=== PATIENT | female | born 1950 ===

== ENCOUNTER → 2023-10-23 15:37 | Outpatient (CLI) | payer MEDICARE, MEDICAID, SELFPAY ==
--- NOTE | 2023-10-23 | DI.RAD.S_ITS ---
PROCEDURE: XR CHEST 2V INDICATIONS: Pneumonia, unspecified organism TECHNIQUE: 2 views of the chest were acquired. COMPARISON: None. FINDINGS: Surgical changes and devices: None. Lungs and pleura: Lungs are clear. No pleural effusions or pneumothorax. Mediastinum: Mediastinal contours are normal. Heart size is normal. Bones and chest wall: No suspicious bony abnormalities. Soft tissues appear unremarkable. IMPRESSION: No acute pulmonary process. Dictated by: Michelle Gonzalez M.D. on 10/23/2023 at 19:56 Approved by: Michelle Gonzalez M.D. on 10/23/2023 at 19:56
== END ==
PROVIDERS: PCP Internal Medicine; Referring Provider Internal Medicine; Visit Provider Internal Medicine
DX: J18.9 Pneumonia, unspecified organism (principal)
CPT/HCPCS: 71046

== ENCOUNTER → 2023-12-02 13:08 | Outpatient (ROUT) | payer MEDICARE, MEDICAID, SELFPAY | PROVIDERS: PCP Internal Medicine; Visit Provider Internal Medicine | DX: Z13.9 Encounter for screening, unspecified (principal) | CPT/HCPCS: 87077; 87086; 87186 ==

== ENCOUNTER → 2023-12-13 06:07 | Outpatient (ROUT) | payer MEDICARE, MEDICAID, SELFPAY ==
[2023-12-13 08:03] LABS: HEMOLYSIS < 15 (0-50)
[2023-12-13 08:04] LABS: Alanine Aminotransferase 10 IU/L (<35); Albumin Globulin Ratio 0.8 (1.0-2.8); Alkaline Phosphatase 97 U/L (38-126); Aspartate Aminotransferase 13 IU/L (14-36); BUN Creatinine Ratio 15.2 (6-22); Bilirubin Total 0.5 mg/dL (0.2-1.3); Blood Urea Nitrogen 17 mg/dL (7-17); Calcium 8.2 mg/dL (8.4-10.2); Carbon Dioxide 30 mmol/L (22-32); Chloride 105 mmol/L (98-107); Estimated Glomerular Filt Rate 53 mL/min (>60); Globulin 3.6 g/dL (1.7-4.1); Glucose 196 mg/dL (80-110); Sodium 136 mmol/L (137-145); Total Protein 6.6 g/dL (6.3-8.2)
[2023-12-13 10:26] LABS: Potassium 4.2 mmol/L (3.4-5.1)
== END ==
PROVIDERS: PCP Internal Medicine; Visit Provider Licensed Practical Nurse
DX: N39.0 Urinary tract infection, site not specified (principal)
CPT/HCPCS: 36415; 80053

== ENCOUNTER 2024-01-22 09:54 | Emergency (ER) | payer MEDICARE, MEDICAID, SELFPAY ==
[2024-01-22] VITALS (8 sets, daily range): BP systolic 111–131; BP diastolic 56–66; PULSE 64–80; RESP 14–18; TEMP 37.2; O2SAT 94–97; BMI 35.4
--- NOTE | 2024-01-22 10:56 | ED_ITS ---
HPI - General Adult General Chief complaint: Urogenital-Female Stated complaint: poss uti, nausea Time Seen by Provider: 01/22/24 10:17 History of Present Illness HPI narrative: 73-year-old woman who lives at [facility] with a prior stroke with persistent left-sided weakness, endometrial cancer, presents complaining of 4 days of dysuria, today noted some mild nausea and anxiety. No flank pain, mild suprapubic pain, no diarrhea, fevers, confusion, weakness Related Data Previous Rx's Medication Instructions Recorded amoxicillin 875 mg-potassium 1 tab PO BID #28 tabs 01/22/24 clavulanate 125 mg tablet Allergies Allergy/AdvReac Type Severity Reaction Status Date / Time codeine Allergy Itching Verified 04/17/20 10:31 Review of Systems Review of Systems Narrative: Pertinent positive and negative findings as per HPI Patient History Medical History (Updated 01/22/24 @ 11:39 by Mackenzie Zheng MD) Aftercare following left shoulder joint replacement surgery Endometrial cancer Surgical History (Updated 04/17/20 @ 11:33 by Mary Hernandez MD) H/O heart artery stent History of robot-assisted laparoscopic hysterectomy Social History Smoking Status: Former smoker Smoking Status: Former smoker Substance Use Type: does not use Exam Initial Vital Signs Initial Vital Signs: Vital Signs Temperature 98.9 F 01/22/24 09:59 Pulse Rate 78 01/22/24 09:59 Respiratory Rate 18 01/22/24 09:59 Blood Pressure 111/56 L 01/22/24 09:59 Pulse Oximetry 96 01/22/24 09:59 Oxygen Delivery Method Room Air 01/22/24 09:59 General: Chronically ill-appearing but in no acute distress. Able to give a complete and coherent history. Well-nourished well-developed HEENT: Moist mucous membranes, normal sclera with reactive pupils, Respiratory: Lungs are clear to auscultation, no wheezing no rales no rhonchi. Full and symmetrical air movement Cardiac: Regular rate and rhythm no murmurs no bruits Abdomen: Soft, mild suprapubic tenderness without rebound or guarding. No flank pain Skin: Warm and dry, no rashes Neurologic: Left arm paralysis, left lower extremity weakness, chronic Extremities: No trauma, no significant edema Psych: Cooperative, appropriate insight and affect Course Orders Ordered: ED Orders 01/22/24 10:45 Urinalysis and Microscopic Stat Urine Culture Stat 01/22/24 10:55 Complete Blood Count AUTO DIFF Stat Comprehensive Metabolic Panel Stat Lipase Stat Sodium Chloride (Sodium Chloride 0.9% Flush) 10 ml IV BID VERA Sodium Chloride (Sodium Chloride 0.9% Flush) 10 ml IV PRN PRN PRN Reason: Flush Vital Signs Vital signs: Vital Signs - 8 hr 01/22/24 09:59 01/22/24 10:18 01/22/24 10:19 Temperature 98.9 F Pulse Rate 78 80 Respiratory Rate 18 Blood Pressure 111/56 L 131/63 Pulse Oximetry 96 97 Oxygen Delivery Method Room Air 01/22/24 10:19 01/22/24 10:30 01/22/24 11:00 Temperature Pulse Rate 79 75 68 Respiratory Rate Blood Pressure Pulse Oximetry 96 94 96 Oxygen Delivery Method Medical Decision Making Lab Data 01/22/24 10:55 01/22/24 10:55 Labs: Lab Results 01/22/24 01/22/24 Range/Units 10:45 10:55 WBC 5.4 (4.5-11.0) X10^3/uL RBC 4.51 (4.0-5.2) X10^6/uL Hgb 12.0 (12.0-16.0) g/dL Hct 36.7 (36-46) % MCV 81.4 (80-100) fL MCH 26.5 (26-34) PG MCHC 32.6 (30-36) % RDW 18.5 H (11.6-14.8) % Plt Count 330 (150-400) X10^3/uL Neut % (Auto) 75.2 H (50-75) % Lymph % (Auto) 15.7 L (25-40) % [place] % (Auto) 5.5 (3-14) % Eos % (Auto) 3.0 (2-4) % Baso % (Auto) 0.6 (0-2) % Neut # (Auto) 4000 (6388-2313) /uL Lymph # (Auto) 800 L (6764-6564) /uL [place] # (Auto) 300 (0-900) /uL Eos # (Auto) 200 (0-450) /uL Baso # (Auto) 0 (0-100) /uL Sodium 135 L (137-145) mmol/L Potassium 4.1 (3.4-5.1) mmol/L Chloride 102 (98-107) mmol/L Carbon Dioxide 32 (22-32) mmol/L BUN 15 (7-17) mg/dL Creatinine 0.94 (0.52-1.04) mg/dL Estimated GFR > 60 (>60) mL/min BUN/Creatinine Ratio 16.0 (6-22) Glucose 128 H (80-110) mg/dL Calcium 8.6 (8.4-10.2) mg/dL Total Bilirubin 0.5 (0.2-1.3) mg/dL AST 14 (14-36) IU/L ALT 10 (<35) IU/L Alkaline Phosphatase 119 (38-126) U/L Total Protein 7.1 (6.3-8.2) g/dL Albumin 3.4 L (3.5-5.0) g/dL Globulin 3.7 (1.7-4.1) g/dL Albumin/Globulin Ratio 0.9 L (1.0-2.8) Lipase 33 (23-300) U/L Urine Color Straw Urine Appearance Cloudy Urine pH 6.0 (4.5-8.0) Ur Specific [place] 1.015 (1.000-1.035) Urine Protein 1+ H (Negative) Urine Glucose (UA) Negative (Negative) g/dL Urine Ketones Negative (NEGATIVE) Urine Occult Blood 3+ H (Negative) Urine Nitrate Positive H (Negative) Urine Bilirubin Negative (NEGATIVE) Urine Urobilinogen Normal (0.2) E.U./dL Ur Leukocyte Esterase 3+ H (NEGATIVE) Urine RBC >100/hpf H (0-5/HPF) Urine WBC >100/hpf H (0-5/HPF) Ur Squamous Epith Cells 1-5 /hpf (0-5/HPF) Urine Bacteria Many (>30) H (None) Ur Culture Indicated? Specimen cultured Vol Urine Centrifuged 10ml (spun) MDM Narrative Medical decision making narrative: CC: Dysuria Complicating co-morbidities: Assisted living, left-sided weakness due to prior stroke Data collected from: patient Social determinants of health that may influence the patients condition: Patient has frequent urinary tract infections, knows that she will need a straight cath for examination finds that very painful and avoids telling anybody that she is having urinary symptoms. She has had prior episodes of urinary sepsis and is aware of consequences of holding off on beginning treatment for bladder infection Differential considered: UTI, sepsis, abdominal infection, constipation Exam documented above, pertinent findings include: The patient appears to be at baseline. Exam is benign. Minor suprapubic tenderness only Lab Test results independently reviewed as above. Pertinent findings: 12/06/23 Urine cuture 1. Escherichia coli M.I.C. RX --------- --- * Amoxicillin/Clavulanate 4 S * Ampicillin >=32 R * Ampicillin/Sulbactam 4 S * Cefazolin >=64 R * Cefepime R * Ceftazidime R * Ceftriaxone 32 R * Ciprofloxacin >=4 R * Ertapenem <=0.5 S * Gentamicin <=1 S * Imipenem <=0.25 S * Levofloxacin >=8 R * Nitrofurantoin <=16 S * Tobramycin <=1 S * Trimethoprim/Sulfamethoxazole >=320 R * Piperacillin/Tazobactam <=4 S Treatments: Based on E coli urine culture from November of this year, we will start her on Augmentin and ask her to complete a 10 day course. Discussion: 73-year-old woman with a history of stroke, recurrent urinary tract infection without evidence of sepsis or other systemic concerns. Based on your previous culture a month ago we will treat with Augmentin, 1st dose given in the emergency department. At this time without evidence of sepsis or other additional findings she does not need further workup, imaging or hospitalization Discharge Plan Departure Patient Disposition: Home Clinical Impression: Urinary tract infection Qualifiers: Urinary tract infection type: acute cystitis Hematuria presence: with hematuria Qualified Code(s): N30.01 - Acute cystitis with hematuria Instructions: DI for Urinary Tract Infection (UTI) Activity Restrictions/Additional Instructions: Thank you for coming in today I know that it is uncomfortable to have a straight catheterization to figure out if you do have a bladder infection however finding them and treating them early can prevent complications like sepsis, as you have already experienced Fortunately, you do not have any evidence of sepsis today It does look like you have a bladder infection and based on urine from mid November of this year I am going to place you on 14 days of Augmentin. If you find that you are having fevers, the pain is not improving over the next 48 hours, you have new symptoms or increasing weakness you need to return to the emergency department Prescriptions: New amoxicillin-pot clavulanate 875-125 mg tablet 1 tab PO BID Qty: 28 0RF Referrals: Sid Townsend MD [Primary Care Provider] - Stand Alone Forms: Patient Portal/API
[2024-01-22 11:00] LABS: Appearance Urine UA Cloudy; Color Urine UA Straw
[2024-01-22 11:01] LABS: Glucose Urine UA NEGATIVE (Negative); Specific Gravity Urine UA 1.015 (1.000-1.035)
[2024-01-22 11:02] LABS: Bilirubin Urine UA Negative (NEGATIVE); Ketones Urine UA NEGATIVE (NEGATIVE); Nitrite Urine UA POSITIVE (Negative); Occult Blood Urine UA 3+ (Negative)
[2024-01-22 11:03] LABS: Leukocyte Esterase Urine UA 3+ (NEGATIVE); Protein Urine UA 1+ (Negative); RBC Urine >100/HPF (0-5/HPF); Urine Volume 10mL (spun); Urobilinogen Urine UA Normal E.U./dL (0.2); WBC Urine >100/HPF (0-5/HPF)
[2024-01-22 11:04] LABS: Add Manual Diff / Slide Review NO; Basophils Absolute Auto 0 /uL (0-100); Basophils Percent Auto 0.6 % (0-2); Eosinophils Absolute Auto 200 /uL (0-450); Hematocrit 36.7 % (36-46); Lymphocytes Absolute Auto 800 /uL (1100-4500); Lymphocytes Percent Auto 15.7 % (25-40); Mean Corpuscular HGB Conc 32.6 % (30-36); Mean Corpuscular Hemoglobin 26.5 PG (26-34); Mean Corpuscular Volume 81.4 fL (80-100); Monocytes Absolute Auto 300 /uL (0-900); Monocytes Percent Auto 5.5 % (3-14); Neutrophils Absolute Auto 4000 /uL (1500-7000); Neutrophils Percent Auto 75.2 % (50-75); Platelet Count 330 X10^3/uL (150-400); Red Blood Cell Count 4.51 X10^6/uL (4.0-5.2); Red Cell Distribution Width 18.5 % (11.6-14.8); White Blood Cell Count 5.4 X10^3/uL (4.5-11.0)
[2024-01-22 11:04] LABS: Bacteria Urine Many (>30); Culture Indicated Urine Specimen Cultured; Squamous Epithelial Cell Urine 1-5 /HPF (0-5/HPF)
[2024-01-22 11:17] LABS: Alanine Aminotransferase 10 IU/L (<35); Albumin 3.4 g/dL (3.5-5.0); Albumin Globulin Ratio 0.9 (1.0-2.8); Alkaline Phosphatase 119 U/L (38-126); Aspartate Aminotransferase 14 IU/L (14-36); Bilirubin Total 0.5 mg/dL (0.2-1.3); Blood Urea Nitrogen 15 mg/dL (7-17); Calcium 8.6 mg/dL (8.4-10.2); Carbon Dioxide 32 mmol/L (22-32); Chloride 102 mmol/L (98-107); Estimated Glomerular Filt Rate > 60 mL/min (>60); Globulin 3.7 g/dL (1.7-4.1); Glucose 128 mg/dL (80-110); HEMOLYSIS < 15 (0-50); Lipase 33 U/L (23-300); Potassium 4.1 mmol/L (3.4-5.1); Sodium 135 mmol/L (137-145); Total Protein 7.1 g/dL (6.3-8.2)
[2024-01-22] MEDS: AMOXICILLIN/CLAV 875/125 MG 1 TAB PO (11:50)
[2024-01-22] MEDS: SODIUM CHLORIDE 0.9% FLUSH 10 ML IV (11:50)
== END 2024-01-22 12:20 | disposition home or self-care (01) ==
PROVIDERS: Emergency Provider Emergency Medicine; PCP Internal Medicine
DX: N30.01 Acute cystitis with hematuria (principal)
CPT/HCPCS: 36415; 51701; 80053; 81001; 83690; 85025; 87077; 87086; 87186; 99284

== ENCOUNTER → 2024-04-09 07:37 | Outpatient (CLI) | payer MEDICARE, MEDICAID, SELFPAY ==
--- NOTE | 2024-04-09 | DI.CT.S_ITS ---
PROCEDURE: CT CHEST ABD PEL W CON INDICATIONS: Malignant neoplasm of uterus, part unspecified TECHNIQUE: After the administration of intravenous contrast, 5 mm thick sections acquired from the lung apices to the symphysis. 5 mm coronal and sagittal reformats were performed, with additional 7 mm MIP reformats through the lungs. For radiation dose reduction, the following was used: automated exposure control, adjustment of mA and/or kV according to patient size. COMPARISON: Outside Facility, RG, CT CHEST/ABD/PEL W/CONTRAST, 07/14/2023, 12:20. Outside Facility, RG, CT CHEST/ABD/PEL W/CONTRAST, 08/29/2022, 18:24. FINDINGS: Image quality: Excellent. CHEST: Lower Neck: No enlarged lymph nodes. Thyroid: No thyroid nodules which require sonographic follow up, per consensus guidelines. Axillae: Stable size borderline left axillary lymph node enlargement. Chest Wall: Unremarkable. Lungs and Pleura: Bilateral lower lung bronchial wall thickening and chronic posteromedial subpleural scarring/atelectasis. Overall low lung volumes. Bibasilar interstitial thickening. No focal consolidations, mass, or pleural effusion. Heart: Heart size is normal. No pericardial effusion. Thoracic Vessels: The aorta and pulmonary arteries demonstrate normal size. Mediastinum and [place]: No enlarged lymph nodes. Esophagus: No wall thickening. No hiatal hernia. ABDOMEN: Liver: Moderate hepatic steatosis. No visible lesions. Gallbladder: No wall thickening or calcified stones. Biliary ducts: No biliary dilation. Pancreas: No ductal dilation. Spleen: Size is within normal limits. Adrenal Glands: No adrenal nodules. Kidneys and Ureters: Normal right renal enhancement. Punctate, nonobstructing right upper pole intrarenal calcification. No hydronephrosis or hydroureter. The left kidney demonstrates diffuse cortical thickening, chronic, prominent hydronephrosis, fat stranding throughout the renal sinus fat, and urothelial thickening with enhancement. There is enhancing, thick-walled hydroureter to the level of the distal ureter. No visible calcifications. No significant change. Stomach and Bowel: Stomach and small bowel loops are normal caliber. Normal appendix. Increased quantity of solid colonic stool. Peritoneum: No abnormal intraperitoneal fluid. No free air. Ventral Wall: No significant ventral hernia. Abdominal Nodes: Left retroperitoneal lymph node enlargement, most prominent at the level of the left renal vein. Node measures 1.0 cm. 0.8 cm lymph node is immediately dorsal to this. No enlarged lymph nodes more caudally. No mesenteric adenopathy. Vessels: The abdominal aorta, IVC, and portal vein are of normal caliber. PELVIS: Pelvic Organs: Prior hysterectomy. No suspicious adnexal masses. The Bladder: Decompressed urinary bladder with thickening subserosal irregularity/inflammation and mucosal hyperemia. No stones no visible intraluminal mass. Pelvic Nodes: No enlarged lymph nodes. Miscellaneous: Moderate presacral fat stranding, probably treatment change without significant progression. No new pelvic fluid collections. Bones: No aggressive osseous abnormality. IMPRESSION: No suspicious lung nodule or adenopathy in the chest. There enlarged left retroperitoneal lymph nodes, slightly increased compared to prior. Stable appearance of chronic, severe left hydronephrosis and diffuse urothelial thickening with enhancement. Additionally, chronic urinary bladder wall thickening inflammation. No new adenopathy in the pelvis. Moderate hepatic steatosis. No visible liver lesion. Prior hysterectomy. Dictated by: Tiffany Cannon M.D. on 04/11/2024 at 15:35 Approved by: Tiffany Cannon M.D. on 04/11/2024 at 15:52
[2024-04-09 08:06] LABS: Estimated Glomerular Filt Rate > 60 mL/min (>60)
== END ==
PROVIDERS: Radiology Diagnostic Radiology; PCP Internal Medicine; Referring Provider Radiology Therapeutic Radiology; Visit Provider Radiology Therapeutic Radiology
DX: C55 Malignant neoplasm of uterus, part unspecified (principal); R59.0 Localized enlarged lymph nodes; N13.30 Unspecified hydronephrosis; K76.0 Fatty (change of) liver, not elsewhere classified; Z90.710 Acquired absence of both cervix and uterus
CPT/HCPCS: 36415; 71260; 74177; 82565; Q9967

== ENCOUNTER → 2024-10-19 14:23 | Outpatient (ROUT) | payer MEDICARE, MEDICAID, SELFPAY ==
[2024-10-19 15:09] LABS: Appearance Urine UA CLOUDY; Bilirubin Urine UA NEGATIVE (NEGATIVE); Color Urine UA YELLOW; Glucose Urine UA 3+ g/dL (Negative); Ketones Urine UA NEGATIVE (NEGATIVE); Leukocyte Esterase Urine UA 1+ (NEGATIVE); Nitrite Urine UA POSITIVE (Negative); Occult Blood Urine UA 3+ (Negative); Protein Urine UA TRACE (Negative); Urobilinogen Urine UA 0.2 E.U./dL (0.2)
[2024-10-19 15:35] LABS: Bacteria Urine Many (>30); Culture Indicated Urine Specimen Cultured; RBC Urine 1-5/HPF (0-5/HPF); Squamous Epithelial Cell Urine None Seen (0-5/HPF); Urine Volume 10mL (spun); WBC Urine >100/HPF (0-5/HPF)
== END ==
PROVIDERS: PCP Internal Medicine; Visit Provider Internal Medicine
DX: N39.0 Urinary tract infection, site not specified (principal)
CPT/HCPCS: 81001; 87077; 87086; 87186

== ENCOUNTER → 2024-10-22 09:59 | Outpatient (ROUT) | payer MEDICARE, MEDICAID, SELFPAY ==
[2024-10-22 10:44] LABS: Appearance Urine UA CLOUDY; Bilirubin Urine UA NEGATIVE (NEGATIVE); Color Urine UA YELLOW; Glucose Urine UA 3+ g/dL (Negative); Ketones Urine UA TRACE (NEGATIVE); Leukocyte Esterase Urine UA 1+ (NEGATIVE); Nitrite Urine UA POSITIVE (Negative); Occult Blood Urine UA 3+ (Negative); Protein Urine UA 2+ (Negative); Specific Gravity Urine UA 1.025 (1.000-1.035); Urobilinogen Urine UA 0.2 E.U./dL (0.2)
[2024-10-22 11:14] LABS: pH Urine UA 5.5 (4.5-8.0)
[2024-10-22 12:04] LABS: Bacteria Urine Moderate (10-30); Culture Indicated Urine Specimen Cultured; RBC Urine 30-100/HPF (0-5/HPF); Squamous Epithelial Cell Urine 1-5 /HPF (0-5/HPF); Urine Volume 10mL (spun); WBC Urine >100/HPF (0-5/HPF)
== END ==
PROVIDERS: PCP Internal Medicine; Visit Provider Registered Nurse
DX: R30.0 Dysuria (principal); R35.0 Frequency of micturition
CPT/HCPCS: 81001; 87077; 87086; 87186

== ENCOUNTER 2025-01-17 16:11 | Emergency (ER) | payer MEDICARE, MEDICAID, SELFPAY ==
[2025-01-17 16:19] VITALS: BP 155/68; PULSE 81; RESP 16; TEMP 36.9; O2SAT 99; BMI 36.9
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
--- NOTE | 2025-01-17 16:59 | DI.RAD.S_ITS ---
PROCEDURE: XR FOOT LT MIN 3V INDICATIONS: Pain/injury TECHNIQUE: 3 views of the foot were acquired. COMPARISON: None. FINDINGS: Bones: No fractures or dislocations. Decreased osseous mineralization. Degenerative changes, most pronounced within the mid foot. No suspicious bony lesions. Plantar and posterior calcaneal enthesophytes. Soft tissues: No tibiotalar joint effusion. Achilles tendon appears normal. IMPRESSION: No definite fracture is seen. Degenerative changes, most pronounced within the mid foot. Dictated by: Eduardo Strickland M.D. on 01/17/2025 at 17:23 Approved by: Eduardo Strickland M.D. on 01/17/2025 at 17:24
--- NOTE | 2025-01-17 16:59 | DI.RAD.S_ITS ---
PROCEDURE: XR ANKLE LT MIN 3V INDICATIONS: Pain/injury TECHNIQUE: 3 views of the ankle were acquired. COMPARISON: None. FINDINGS: Bones: No fractures or dislocations. Ankle mortise is normally aligned. No suspicious bony lesions. Soft tissues: No tibiotalar joint effusion. Achilles tendon appears normal. IMPRESSION: No acute osseous abnormality. If pain persists with conservative management, consider repeat x-ray in 10-14 days or cross-sectional imaging. Dictated by: Eduardo Strickland M.D. on 01/17/2025 at 17:24 Approved by: Eduardo Strickland M.D. on 01/17/2025 at 17:25
--- NOTE | 2025-01-17 17:08 | DI.CT.S_ITS ---
PROCEDURE: CT LE LT W CON INDICATIONS: PAIN INJURY LEFT KNEE TECHNIQUE: Noncontrast 1-1.5 mm axial sections acquired from the mid-patella to the proximal tibia, with coronal and sagittal reformats. COMPARISON: [facility], CR, XR TIBIA FIBULA LT 2V, 01/17/2025, 16:27. FINDINGS: Image quality: Excellent. Bones: Decreased osseous mineralization. Severe degenerative changes of the knee with osteophytosis and severe medial compartment joint space narrowing. No definite fractures are seen. Soft tissues: No significant knee joint effusion. IMPRESSION: No definite fracture is seen. No significant knee joint effusion. Severe medial compartment degeneration. Dictated by: Eduardo Strickland M.D. on 01/17/2025 at 17:50 Approved by: Eduardo Strickland M.D. on 01/17/2025 at 17:53
[2025-01-17] MEDS: ONDANSETRON 4 MG ODT SL (17:10)
[2025-01-17] MEDS: OXYCODONE IR 5 MG TABLET PO (17:11)
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
== END 2025-01-17 18:38 | disposition home or self-care (01) ==
PROVIDERS: Emergency Provider Emergency Medicine; PCP Internal Medicine
DX: S93.402A Sprain of unspecified ligament of left ankle, initial encounter (principal); S86.912A Strain of unspecified muscle(s) and tendon(s) at lower leg level, left leg, initial encounter; X58.XXXA Exposure to other specified factors, initial encounter; I69.398 Other sequelae of cerebral infarction
CPT/HCPCS: 73590; 73610; 73630; 73700; 99283; 99284

== ENCOUNTER → 2025-02-05 06:00 | Outpatient (ROUT) | payer MEDICARE, MEDICAID, SELFPAY ==
[2025-02-05 06:12] LABS: Appearance Urine UA TURBID; Bilirubin Urine UA NEGATIVE (NEGATIVE); Color Urine UA YELLOW; Glucose Urine UA 3+ g/dL (Negative); Ketones Urine UA NEGATIVE (NEGATIVE); Leukocyte Esterase Urine UA TRACE (NEGATIVE); Nitrite Urine UA POSITIVE (Negative); Occult Blood Urine UA 3+ (Negative); Protein Urine UA 2+ (Negative); Urobilinogen Urine UA 0.2 E.U./dL (0.2); pH Urine UA 5.5 (4.5-8.0)
[2025-02-05 06:13] LABS: Bacteria Urine Many (>30); Culture Indicated Urine Specimen Cultured; RBC Urine 10-30/HPF (0-5/HPF); Squamous Epithelial Cell Urine 0-1 /HPF (0-5/HPF); Urine Volume 10mL (spun); WBC Urine >100/HPF (0-5/HPF)
== END ==
LOC: LAB 06:01
PROVIDERS: PCP Internal Medicine; Visit Provider Registered Nurse
DX: N39.0 Urinary tract infection, site not specified (principal)
CPT/HCPCS: 81001; 87077; 87086; 87186

== ENCOUNTER → 2025-04-21 16:07 | Outpatient (ROUT) | payer MEDICARE, MEDICAID, SELFPAY ==
[2025-04-21 16:16] LABS: Appearance Urine UA TURBID; Bilirubin Urine UA 1+ (NEGATIVE); Color Urine UA YELLOW; Glucose Urine UA TRACE g/dL (Negative); Ketones Urine UA NEGATIVE (NEGATIVE); Leukocyte Esterase Urine UA 2+ (NEGATIVE); Nitrite Urine UA POSITIVE (Negative); Occult Blood Urine UA 3+ (Negative); Protein Urine UA 2+ (Negative); Specific Gravity Urine UA 1.025 (1.000-1.035); Urobilinogen Urine UA 1.0 E.U./dL (0.2)
[2025-04-21 16:19] LABS: pH Urine UA 6.0 (4.5-8.0)
[2025-04-21 16:27] LABS: Culture Indicated Urine Specimen Cultured
[2025-04-21 16:29] LABS: Ictotest Urine Negative (Negative)
== END ==
PROVIDERS: PCP Internal Medicine; Visit Provider Registered Nurse
DX: N31.2 Flaccid neuropathic bladder, not elsewhere classified (principal)
CPT/HCPCS: 81001; 87077; 87086; 87186

== ENCOUNTER → 2025-05-29 21:52 | Outpatient (ROUT) | payer MEDICARE, MEDICAID, SELFPAY ==
[2025-05-29 22:00] LABS: Appearance Urine UA CLOUDY; Bilirubin Urine UA NEGATIVE (NEGATIVE); Color Urine UA YELLOW; Glucose Urine UA 3+ g/dL (Negative); Ketones Urine UA NEGATIVE (NEGATIVE); Leukocyte Esterase Urine UA 1+ (NEGATIVE); Nitrite Urine UA POSITIVE (Negative); Occult Blood Urine UA TRACE-INTACT (Negative); Protein Urine UA NEGATIVE (Negative); Specific Gravity Urine UA 1.015 (1.000-1.035); Urobilinogen Urine UA 0.2 E.U./dL (0.2)
[2025-05-29 22:12] LABS: pH Urine UA 5.5 (4.5-8.0)
[2025-05-29 22:13] LABS: Culture Indicated Urine Cult Not Indicated
== END ==
PROVIDERS: PCP Internal Medicine; Visit Provider Registered Nurse
DX: N31.2 Flaccid neuropathic bladder, not elsewhere classified (principal)
CPT/HCPCS: 81001; 87077; 87086; 87186

== ENCOUNTER 2025-07-08 12:46 | Inpatient (IN) | payer MEDICARE, MEDICAID, SELFPAY ==
[2025-07-08] VITALS (19 sets, daily range): BP systolic 140–175; BP diastolic 67–72; PULSE 58–76; RESP 19–22; TEMP 37; O2SAT 86–97; BMI 34.9
--- NOTE | 2025-07-08 15:45 | PC.NURSE ---
Pt presents to ER with concern for UTI. Reports she has had multiple UTIs recently and was admitted previously for sepsis at [facility]. Reports she received IV abx while in the hospital that resolved her UTI after multiple (4) rounds of PO abx were not successful. Pt reports burning/pain with urination and pain in her bladder
--- NOTE | 2025-07-08 16:04 | ED.FEMALEGU ---
HPI - Female Genitourinary General Chief complaint: Urogenital-Female Stated complaint: UTI per pt going on for a bit Time Seen by Provider: 07/08/25 12:57 Source: patient Mode of arrival: Wheelchair History of Present Illness HPI Narrative: 74-year-old female hypertension CVA 10 years ago that left her with left-sided residual deficits that ambulates via electric scooter presents with urine urgency and dysuria despite being on 4 rounds antibiotic including Macrobid and amoxicillin. She denies fever, chills, back pain, abdominal pain, nausea, vomiting, diarrhea, sore throat, cough. Other than what is stated 14 point review of system is negative. Related Data Home Medications ?Medication ?Instructions ?Recorded ?Confirmed metoprolol succinate 25 mg 12.5 mg PO DAILY 05/02/25 05/02/25 tablet,extended release 24 hr pregabalin 25 mg capsule 25 mg PO DAILY 05/02/25 05/02/25 ropinirole 0.25 mg tablet 0.25 mg PO DAILY 05/02/25 05/02/25 Previous Rx's ?Medication ?Instructions ?Recorded tramadol 50 mg tablet 50 mg PO Q6H PRN pain #20 tabs 01/17/25 Allergies Allergy/AdvReac Type Severity Reaction Status Date / Time codeine Allergy Itching Verified 05/02/25 08:30 Review of Systems Review of Systems ROS Unobtainable: All systems reviewed & are unremarkable except as noted in HPI and below Patient History Medical History (Updated 07/08/25 @ 18:58 by Liam Morataya DO) Aftercare following left shoulder joint replacement surgery Endometrial cancer Surgical History (Updated 04/17/20 @ 11:33 by Mary Hernandez MD) H/O heart artery stent History of robot-assisted laparoscopic hysterectomy Exam Narrative Exam Narrative: GENERAL: [74] year old patient appears stated age. Well-developed patient, in mild distress. HEAD: Atraumatic. Normocephalic. EYES: Pupils equal round and reactive. Extraocular motions intact. No scleral icterus. No injection or drainage. ENT: Nose without bleeding, purulent drainage. Throat without erythema, tonsillar hypertrophy or exudate. Airway patent. NECK: Trachea midline. Non tender CARDIOVASCULAR: Regular rate and rhythm without murmurs, gallops, or rubs. RESPIRATORY: Clear to auscultation. Breath sounds equal bilaterally. No wheezes, rales, or rhonchi. GASTROINTESTINAL: Abdomen soft, non-tender, nondistended. EXTREMITIES: No edema or joint tenderness. BACK: Nontender without deformity or crepitance. No flank tenderness. NEURO: AOx3. SKIN: No rash or erythema of visible areas Initial Vital Signs Initial Vital Signs: Vital Signs Temperature 98.6 F 07/08/25 12:52 Pulse Rate 67 07/08/25 12:52 Respiratory Rate 20 07/08/25 12:52 Blood Pressure 170/70 H 07/08/25 12:52 Pulse Oximetry 97 07/08/25 12:52 Oxygen Delivery Method Room Air 07/08/25 12:52 Course Orders Ordered: ED Orders 07/08/25 15:35 CBC Auto Diff [Complete Blood Count AUTO DIFF] Stat CMP [Comprehensive Metabolic Panel] Stat 07/08/25 16:05 CT abdomen pelvis w con Stat 07/08/25 18:13 Urinalysis and Microscopic Stat Discontinued Medications Lactated Ringer's (Lactated Ringers) 500 mls @ 1,000 mls/hr IV BOLUS ONE Stop: 07/08/25 16:35 Last Admin: 07/08/25 16:40 Dose: 1,000 mls/hr Documented By: ES Vital Signs Vital signs: Vital Signs - 8 hr 07/08/25 12:52 07/08/25 15:17 07/08/25 15:18 Temperature 98.6 F Pulse Rate 67 71 Respiratory Rate 20 Blood Pressure 170/70 H 140/71 Pulse Oximetry 97 93 Oxygen Delivery Method Room Air 07/08/25 15:18 07/08/25 15:36 07/08/25 15:37 Temperature Pulse Rate 71 Respiratory Rate Blood Pressure 146/68 H Pulse Oximetry 91 96 Oxygen Delivery Method 07/08/25 15:37 07/08/25 16:00 07/08/25 16:46 Temperature Pulse Rate 71 70 76 Respiratory Rate Blood Pressure Pulse Oximetry 96 96 97 Oxygen Delivery Method MDM - Female Genitourinary Lab Data 07/08/25 15:35 07/08/25 15:35 Labs: Lab Results 07/08/25 Range/Units 15:35 WBC 6.7 (4.5-11.0) X10^3/uL RBC 5.49 H (4.0-5.2) X10^6/uL Hgb 14.1 (12.0-16.0) g/dL Hct 43.2 (36-46) % MCV 78.6 L (80-100) fL MCH 25.6 L (26-34) PG MCHC 32.6 (30-36) % RDW 16.5 H (11.6-14.8) % Plt Count 296 (150-400) X10^3/uL Neut % (Auto) 75.9 H (50-75) % Lymph % (Auto) 16.2 L (25-40) % [place] % (Auto) 4.1 (3-14) % Eos % (Auto) 3.2 (2-4) % Baso % (Auto) 0.6 (0-2) % Neut # (Auto) 5100 (3611-3890) /uL Lymph # (Auto) 1100 (8459-0911) /uL [place] # (Auto) 300 (0-900) /uL Eos # (Auto) 200 (0-450) /uL Baso # (Auto) 0 (0-100) /uL Sodium 137 (137-145) mmol/L Potassium 4.3 (3.4-5.1) mmol/L Chloride 98 (98-107) mmol/L Carbon Dioxide 27 (22-32) mmol/L BUN 17 (7-17) mg/dL Creatinine 0.81 (0.52-1.04) mg/dL Estimated GFR > 60 (>60) mL/min BUN/Creatinine Ratio 21.0 (6-22) Glucose 351 H (70-99) mg/dL Calcium 9.5 (8.4-10.2) mg/dL Total Bilirubin 0.5 (0.2-1.3) mg/dL AST 25 (14-36) IU/L ALT 19 (<35) IU/L Alkaline Phosphatase 141 H (38-126) U/L Total Protein 9.3 H (6.3-8.2) g/dL Albumin 4.5 (3.5-5.0) g/dL Globulin 4.8 H (1.7-4.1) g/dL Albumin/Globulin Ratio 0.9 L (1.0-2.8) MDM Narrative Medical decision making narrative: All lab work, vital signs, nurse triage note, medication list, previous ER visits, and all imaging studies reviewed. UA showed + nitrite + blood +1 Leuk, 10-30 wbc, many bacteria, WBC 6.7 hemoglobin 14.1 platelets 296 sodium 137 potassium 4.3 chloride 98 CO2 27 BUN 17 creatinine 0.81 glucose 351 LFTs normal. WBC 6.7 hemoglobin 14.1 platelets 296 sodium 137 potassium 4.3 chloride 98 CO2 27 BUN 17 creatinine 0.81 glucose 351 Patient given fluids and Rocephin here and regular insulin 8 units. Culture results from05/29/25 shows E coli ESBL + given ertapenem here. Case d/w who has graciously accepted the patient for inpatient admission Discharge Plan Departure Patient Disposition: Admitted as Observation Clinical Impression: Acute hyperglycemia, Acute UTI
--- NOTE | 2025-07-08 16:05 | DI.CT.S_ITS ---
PROCEDURE: CT ABDOMEN PELVIS W CON INDICATIONS: multiple UTIs/ abd pain TECHNIQUE: After the administration of intravenous contrast, axial sections acquired from the lung bases to the pubic symphysis. Coronal and sagittal reformats were performed. For radiation dose reduction, the following was used: automated exposure control, adjustment of mA and/or kV according to patient size. COMPARISON: None. FINDINGS: Image quality: Diagnostic. Lower Chest: No significant findings. ABDOMEN: Liver: No solid mass. Gallbladder: No radiopaque gallstones or wall thickening. Biliary ducts: No biliary dilation. Pancreas: No ductal dilation. Spleen: Size is within normal limits. Adrenal Glands: No adrenal nodules. Kidneys and Ureters: Left renal atrophy. Moderate left hydroureteronephrosis with urothelial hyperenhancement and periureteral and perinephric fat stranding. No right hydronephrosis. 2-3 mm nonobstructing right renal calculi. No solid mass. No complex renal cystic lesion which requires follow up. Stomach and Bowel: Moderate to large volume of stool throughout the colon and rectum. Small bowel loops are nondilated. Peritoneum: No abnormal intraperitoneal fluid. No free air. Ventral Wall: No significant ventral hernia. Abdominal Nodes: No retroperitoneal or mesenteric adenopathy by size criteria. Vessels: Aorta and inferior vena cava are normal in size. PELVIS: Pelvic Organs: Status post hysterectomy. Bladder: Mild circumferential bladder wall thickening.. Pelvic Nodes: No enlarged lymph nodes. Miscellaneous: No inguinal hernias are seen. Bones: No aggressive osseous abnormality. Degenerative changes are seen in the hips and spine. IMPRESSION: 1. Moderate left hydronephrosis with urothelial hyperenhancement as well as perinephric and periureteral fat stranding, suspicious for ascending urinary tract infection/pyelonephritis. Findings are superimposed on chronic asymmetric left renal atrophy. 2. Mild circumferential bladder wall thickening. 3. Small nonobstructing right renal calculi. No right hydronephrosis. 4. Moderate to large volume of stool in the colon, correlate for constipation. Approved by: Rick Araiza M.D. on 07/08/2025 at 18:25
[2025-07-08 16:17] LABS: Add Manual Diff / Slide Review NO; Hematocrit 43.2 % (36-46); Hemoglobin 14.1 g/dL (12.0-16.0); Lymphocytes Absolute Auto 1100 /uL (1100-4500); Mean Corpuscular HGB Conc 32.6 % (30-36); Mean Corpuscular Hemoglobin 25.6 PG (26-34); Mean Corpuscular Volume 78.6 fL (80-100); Platelet Count 296 X10^3/uL (150-400)
[2025-07-08 16:34] LABS: Alanine Aminotransferase 19 IU/L (<35); Albumin 4.5 g/dL (3.5-5.0); Albumin Globulin Ratio 0.9 (1.0-2.8); Alkaline Phosphatase 141 U/L (38-126); Blood Urea Nitrogen 17 mg/dL (7-17); Calcium 9.5 mg/dL (8.4-10.2); Carbon Dioxide 27 mmol/L (22-32); Chloride 98 mmol/L (98-107); Estimated Glomerular Filt Rate > 60 mL/min (>60); Globulin 4.8 g/dL (1.7-4.1); Glucose 351 mg/dL (70-99); HEMOLYSIS 23 (0-50); Potassium 4.3 mmol/L (3.4-5.1); Sodium 137 mmol/L (137-145); Total Protein 9.3 g/dL (6.3-8.2)
[2025-07-08] MEDS: LACTATED RINGERS 500 ML 1000 ML IV (16:40)
[2025-07-08 18:36] LABS: Appearance Urine UA CLOUDY; Bilirubin Urine UA NEGATIVE (NEGATIVE); Color Urine UA YELLOW; Glucose Urine UA 3+ g/dL (Negative); Ketones Urine UA NEGATIVE (NEGATIVE); Leukocyte Esterase Urine UA 1+ (NEGATIVE); Nitrite Urine UA POSITIVE (Negative); Occult Blood Urine UA 2+ (Negative); Protein Urine UA TRACE (Negative); Specific Gravity Urine UA <=1.005 (1.000-1.035); Urobilinogen Urine UA 0.2 E.U./dL (0.2)
[2025-07-08 18:38] LABS: pH Urine UA 5.5 (4.5-8.0)
[2025-07-08 18:44] LABS: Culture Indicated Urine Specimen Cultured
[2025-07-08] MEDS: INSULIN REGULAR 100 UNIT/ML 3 ML VIAL 8 UNIT IV (19:29)
--- NOTE | 2025-07-08 19:30 | PC.NURSE ---
Pt sitting in ED stretcher engaging with RN at this time. Plan of care discussed. No complaints or request at this time. VS WNL. Pt remains connected to blood pressure and pulse ox monitors with alarms on and audible. Call light within reach.
[2025-07-08] MEDS: ERTAPENEM 1 GM in SODIUM CHLORIDE 0.9% 100 ML IV (19:41)
--- NOTE | 2025-07-08 20:19 | P.HP_ITS ---
History of Present Illness History of Present Illness Date Patient Seen: 07/08/25 Time Patient Seen: 22:15 Chief complaint: UTI per pt going on for a bit Narrative: 74 y/o long-term resident of SNF since the CVA and Lt hemiparesis, with a Hx of recurrent UTI, most lately with ESBL, presented with dysuria. It started few days ago and she was on several doses of Macrobid and amoxicillin, apparently. Complains on suprapubic tenderness, w/o LBP or flank pain, fever, sweats. Feels cold but w/o rigors. UA appears infected but she is afebrile, if anything hypertensive, w/o leukocytosis. She was given meropenem based on last UC results from last month. Placed in observation to medicine [facility] a diagnosis of acute Lt pyelonephritis, for IV abx and monitoring. [facility] Medical History (Updated 07/08/25 @ 20:33 by Jefe Campbell MD) CAD (coronary artery disease) History of stroke HTN (hypertension) Diabetes Aftercare following left shoulder joint replacement surgery Endometrial cancer Surgical History H/O heart artery stent History of robot-assisted laparoscopic hysterectomy Social History Smoking Status: Never smoker Meds Home Medications and Allergies Home Medications ?Medication ?Instructions ?Recorded ?Confirmed ?Type tramadol 50 mg tablet 50 mg PO Q6H PRN pain #20 ta bs 01/17/25 05/02/25 Rx metoprolol succinate 25 mg 12.5 mg PO DAILY 05/02/25 0 05/02/25 History tablet,extended release 24 hr pregabalin 25 mg capsule 25 mg PO DAILY 05/02/2505/19 History ropinirole 0.25 mg tablet 0.25 mg PO DAILY 05/02/25 History albuterol sulfate 90 mcg/actuation 1 puff inhalation Q 4H PRN 07/08/25 07/08/25 History aerosol inhaler shortness of breath or wheez ing Allergies Allergy/AdvReac Type Severity Reaction Status Date / Time codeine Allergy Itching Verified 07/08/25 22:54 Review of Systems Review of Systems Narrative: General - w/o fever, chills or sweats UG - dysuria, w/o hematuria, suprapubic pain, w/o Lt flank pain CVS - w/o chest pain RS - w/o SOB GI - w/o abdominal pain Exam Vital Signs (past 8 hours): - 07/08/25 12:52 07/08/25 15:17 07/08/25 15:18 Temperature 98.6 F Pulse Rate 67 71 Respiratory Rate 20 Blood Pressure 170/70 H 140/71 Pulse Oximetry 97 93 Oxygen Delivery Method Room Air 07/08/25 15:18 07/08/25 15:36 07/08/25 15:37 Temperature Pulse Rate 71 Respiratory Rate Blood Pressure 146/68 H Pulse Oximetry 91 96 Oxygen Delivery Method 07/08/25 15:37 07/08/25 16:00 07/08/25 16:46 Temperature Pulse Rate 71 70 76 Respiratory Rate Blood Pressure Pulse Oximetry 96 96 97 Oxygen Delivery Method 07/08/25 16:52 07/08/25 16:56 07/08/25 17:00 Temperature Pulse Rate 58 L Respiratory Rate Blood Pressure 158/67 H 150/67 H Pulse Oximetry 86 L Oxygen Delivery Method 07/08/25 17:31 Temperature Pulse Rate 71 Respiratory Rate Blood Pressure Pulse Oximetry 95 Oxygen Delivery Method Oxygen Delivery Method Room Air Narrative Exam Narrative: General - in no distress HEENT - normocephalic UG - w/o falnk tenderness, has suprapubic tenderness CVS - RRR RS - normal respiratory effort Neuro - Lt hemiparesis Objective Imaging CT scan - abdomen: Radiologist's impression: 1. Moderate left hydronephrosis with urothelial hyperenhancement as well as perinephric and periureteral fat stranding, suspicious for ascending urinary tract infection/pyelonephritis. Findings are superimposed on chronic asymmetric left renal atrophy. 2. Mild circumferential bladder wall thickening. 3. Small nonobstructing right renal calculi. No right hydronephrosis. 4. Moderate to large volume of stool in the colon, correlate for constipation. Labs 07/08/25 15:35 07/08/25 15:35 Labs: Laboratory Results - last 24 hr 07/08/25 07/08/25 07/08/25 15:35 18:05 19:33 WBC 6.7 RBC 5.49 H Hgb 14.1 Hct 43.2 MCV 78.6 L MCH 25.6 L MCHC 32.6 RDW 16.5 H Plt Count 296 Neut % (Auto) 75.9 H Lymph % (Auto) 16.2 L [place] % (Auto) 4.1 Eos % (Auto) 3.2 Baso % (Auto) 0.6 Neut # (Auto) 5100 Lymph # (Auto) 1100 [place] # (Auto) 300 Eos # (Auto) 200 Baso # (Auto) 0 Sodium 137 Potassium 4.3 Chloride 98 Carbon Dioxide 27 BUN 17 Creatinine 0.81 Estimated GFR > 60 BUN/Creatinine Ratio 21.0 Glucose 351 H POC Whole Bld Glucose 444 H Calcium 9.5 Total Bilirubin 0.5 AST 25 ALT 19 Alkaline Phosphatase 141 H Total Protein 9.3 H Albumin 4.5 Globulin 4.8 H Albumin/Globulin Ratio 0.9 L Urine Color Yellow Urine Appearance Cloudy Urine pH 5.5 Ur Specific [place] <=1.005 Urine Protein Trace H Urine Glucose (UA) 3+ H Urine Ketones Negative Urine Occult Blood 2+ H Urine Nitrate Positive H Urine Bilirubin Negative Urine Urobilinogen 0.2 Ur Leukocyte Esterase 1+ H Urine RBC 1-5/hpf Urine WBC 10-30/hpf H Ur Squamous Epith Cells 1-5 /hpf Urine Bacteria Many (>30) H Ur Culture Indicated? Specimen cultured Micro UA Comment Vol Urine Centrifuged 10ml (spun) Assessment & Plan Assessment and plan (1) Acute pyelonephritis: Status: Acute (2) Diabetes: Status: Acute (3) HTN (hypertension): Status: Acute (4) History of stroke: Status: Acute (5) CAD (coronary artery disease): Status: Acute Assessment & Plan narrative: Acute Lt pyelonephritis - last UC grew ESBL - not septic - Zosyn, switch to Augmentin when clinically indicated Kidney stones - follows with urology, had prior stents - risk for recurrent infections - Rt kidney non-obstructive stone DM - SS, CCD CAD / HTN - metoprolol - Hx of stent, w/o angina Hx of Rt MCA CVA / Lt hemiparesis - supportive care - using electric scooter at Constipation - bowel care DVT prophylaxis - Lovenox Patient consented to telemedicine, audio-visual encounter with RN assisting with the exam. Patient located at [place], [place], provider located in [place]. Time-Based Coding :: [TOTAL MINUTES] spent with patient and on the chart (including review of chart, obtaining history, exam, reviewing outside data, placing orders, documenting exam and treatment plan, and counseling patient) on [DATE].
--- NOTE | 2025-07-08 21:21 | PC.NURSE ---
pt transferred to hospital bed from ED stretcher due to boarding in the ED for patient admission. Call light within reach. RN aSrah Beth kaba
[2025-07-08] MEDS: INSULIN LISPRO 100 UNIT/ML 3ML VIAL SUBCUT (21:50)
[2025-07-08] MEDS: ACETAMINOPHEN 325 MG TABLET 1000 MG PO (21:51)
--- NOTE | 2025-07-08 21:55 | PC.NURSE ---
Food and beverage provided.
[2025-07-09] VITALS (19 sets, daily range): BP systolic 127–164; BP diastolic 49–84; PULSE 66–88; RESP 15–20; TEMP 36–36.4; O2SAT 94–98
--- NOTE | 2025-07-09 01:53 | PC.NURSE ---
Pt awake and alert sitting in hospital bed playing on phone, engages with RN appropriately. No distress noted at this time. Pt c/o being warm, blankets removed at this time for comfort. No other complaints or requests at this time.
--- NOTE | 2025-07-09 04:23 | PC.NURSE ---
Pt states she squirmed Purewick out and brief is now wet. Brief and underpad changed. New Purewick placed. No other complaints or requests at t his time. Call light within reach.
[2025-07-09] MEDS: PIPERACILLIN/TAZO 4.5 GM in SODIUM CHLORIDE 0.9% 100 ML IV (05:29)
[2025-07-09 05:42] LABS: Add Manual Diff / Slide Review NO; Hematocrit 36.7 % (36-46); Hemoglobin 11.9 g/dL (12.0-16.0); Lymphocytes Absolute Auto 1000 /uL (1100-4500); Mean Corpuscular HGB Conc 32.4 % (30-36); Mean Corpuscular Hemoglobin 25.4 PG (26-34); Mean Corpuscular Volume 78.4 fL (80-100); Platelet Count 219 X10^3/uL (150-400)
[2025-07-09 05:54] LABS: Blood Urea Nitrogen 17 mg/dL (7-17); Calcium 8.7 mg/dL (8.4-10.2); Carbon Dioxide 29 mmol/L (22-32); Chloride 100 mmol/L (98-107); Estimated Glomerular Filt Rate > 60 mL/min (>60); Glucose 313 mg/dL (70-99); HEMOLYSIS < 15 (0-50); Potassium 3.8 mmol/L (3.4-5.1); Sodium 133 mmol/L (137-145)
[2025-07-09] MEDS: INSULIN LISPRO 100 UNIT/ML 3ML VIAL SUBCUT ×4 (07:35→20:33)
[2025-07-09] MEDS: METOPROLOL ER 25 MG TABLET 12.5 MG PO (08:09)
[2025-07-09] MEDS: ENOXAPARIN 40 MG/0.4 ML SYRINGE SUBCUT (08:10)
[2025-07-09] MEDS: PREGABALIN 25 MG CAPSULE PO (08:43)
--- NOTE | 2025-07-09 09:28 | PC.NURSE ---
Report given to ODALIS Canseco and pt transferred at 0925. Pt had BM prior to transfer and was cleaned with erson assist.
--- NOTE | 2025-07-09 10:19 | PC.NURSE ---
This RN went upstairs and gave ODALIS Blanco this patient Lispro vial and box that is labeled and dated that patient started with this morning dose.
--- NOTE | 2025-07-09 10:57 | P.PN_ITS ---
Subjective Subjective Date Patient Seen: 07/09/25 Interval history: 74 y/o long-term resident of [facility] since the CVA and Lt hemiparesis, with a Hx of recurrent UTI, most lately with ESBL, presented with dysuria. It started few days ago and she was on several doses of Macrobid and amoxicillin, apparently. Complains on suprapubic tenderness, w/o LBP or flank pain, fever, sweats. Feels cold but w/o rigors. UA appears infected but she is afebrile, if anything hypertensive, w/o leukocytosis. She was given meropenem based on last UC results from last month. Placed in observation to medicine with a diagnosis of acute Lt pyelonephritis, for IV abx and monitoring. 07/09: She says she has feeling a bit better. She is very interested in how long she will be here in the hospital. She lives at the [facility]. Her CBC and BMP are normal with a glucose of 313. The urine culture is growing Gram-negative bacilli. The last urine culture was ESBL E coli. She is now on ertapenem. PFSH Medical History CAD (coronary artery disease) History of stroke HTN (hypertension) Diabetes Aftercare following left shoulder joint replacement surgery Endometrial cancer Surgical History H/O heart artery stent History of robot-assisted laparoscopic hysterectomy Social History Smoking Status: Never smoker Assessment & Plan Assessment and plan Acute Lt pyelonephritis - last UC grew ESBL - urine culture current growing Gram-negative bacilli. - not septic - ertapenem IV for now, pending results of urine culture. Kidney stones - follows with urology, had prior stents - risk for recurrent infections - Rt kidney non-obstructive stone DM - SS, CCD CAD / HTN - metoprolol - Hx of stent, w/o angina Hx of Rt MCA CVA / Lt hemiparesis - supportive care - using electric scooter at Constipation - bowel care DVT prophylaxis - Lovenox Disposition: Back to [facility] versus [facility] facility once duration of treatment and antibiotic of choice is determined. Exam Vital Signs (past 8 hours): - 07/09/25 05:24 07/09/25 05:24 07/09/25 07:27 Pulse Rate 70 67 Respiratory Rate 20 Blood Pressure 136/64 Blood Pressure [Left Arm] Pulse Oximetry 96 96 Oxygen Delivery Method Room Air 07/09/25 07:28 07/09/25 07:28 07/09/25 07:30 Pulse Rate 67 67 Respiratory Rate Blood Pressure 156/66 H Blood Pressure [Left Arm] Pulse Oximetry 96 96 Oxygen Delivery Method 07/09/25 08:00 07/09/25 08:00 07/09/25 08:09 Pulse Rate 67 78 Respiratory Rate Blood Pressure 150/66 H 150/66 H Blood Pressure [Left Arm] Pulse Oximetry 98 Oxygen Delivery Method 07/09/25 08:13 07/09/25 08:13 07/09/25 08:17 Pulse Rate 74 74 Respiratory Rate Blood Pressure 164/70 H Blood Pressure [Left Arm] 164/70 H Pulse Oximetry 95 Oxygen Delivery Method 07/09/25 08:45 07/09/25 08:45 07/09/25 08:46 Pulse Rate 80 80 Respiratory Rate Blood Pressure 138/84 138/84 Blood Pressure [Left Arm] Pulse Oximetry 96 Oxygen Delivery Method Oxygen Delivery Method Room Air Narrative Exam Narrative: Alert and oriented x3. No apparent distress. She says that she feels better this morning. Heart is regular rate and rhythm without murmur. Lungs are clear to auscultation bilaterally. Extremities have no ankle edema. Abdomen is protuberant/obese, nontender. Objective Labs 07/09/25 05:33 07/09/25 05:33 Labs: Laboratory Results - last 24 hr 07/08/25 07/08/25 07/08/25 15:35 18:05 19:33 WBC 6.7 RBC 5.49 H Hgb 14.1 Hct 43.2 MCV 78.6 L MCH 25.6 L MCHC 32.6 RDW 16.5 H Plt Count 296 Neut % (Auto) 75.9 H Lymph % (Auto) 16.2 L [place] % (Auto) 4.1 Eos % (Auto) 3.2 Baso % (Auto) 0.6 Neut # (Auto) 5100 Lymph # (Auto) 1100 [place] # (Auto) 300 Eos # (Auto) 200 Baso # (Auto) 0 Sodium 137 Potassium 4.3 Chloride 98 Carbon Dioxide 27 BUN 17 Creatinine 0.81 Estimated GFR > 60 BUN/Creatinine Ratio 21.0 Glucose 351 H POC Whole Bld Glucose 444 H Calcium 9.5 Total Bilirubin 0.5 AST 25 ALT 19 Alkaline Phosphatase 141 H Total Protein 9.3 H Albumin 4.5 Globulin 4.8 H Albumin/Globulin Ratio 0.9 L Urine Color Yellow Urine Appearance Cloudy Urine pH 5.5 Ur Specific [place] <=1.005 Urine Protein Trace H Urine Glucose (UA) 3+ H Urine Ketones Negative Urine Occult Blood 2+ H Urine Nitrate Positive H Urine Bilirubin Negative Urine Urobilinogen 0.2 Ur Leukocyte Esterase 1+ H Urine RBC 1-5/hpf Urine WBC 10-30/hpf H Ur Squamous Epith Cells 1-5 /hpf Urine Bacteria Many (>30) H Ur Culture Indicated? Specimen cultured Micro UA Comment Vol Urine Centrifuged 10ml (spun) 07/08/25 07/09/25 07/09/25 21:06 05:33 07:30 WBC 6.7 RBC 4.68 Hgb 11.9 L Hct 36.7 MCV 78.4 L MCH 25.4 L MCHC 32.4 RDW 16.3 H Plt Count 219 Neut % (Auto) 76.1 H Lymph % (Auto) 14.8 L [place] % (Auto) 4.5 Eos % (Auto) 3.6 Baso % (Auto) 1.0 Neut # (Auto) 5100 Lymph # (Auto) 1000 L [place] # (Auto) 300 Eos # (Auto) 200 Baso # (Auto) 100 Sodium 133 L Potassium 3.8 Chloride 100 Carbon Dioxide 29 BUN 17 Creatinine 0.77 Estimated GFR > 60 BUN/Creatinine Ratio 22.1 H Glucose 313 H POC Whole Bld Glucose 300 H D 301 H Calcium 8.7 Total Bilirubin AST ALT Alkaline Phosphatase Total Protein Albumin Globulin Albumin/Globulin Ratio Urine Color Urine Appearance Urine pH Ur Specific [place] Urine Protein Urine Glucose (UA) Urine Ketones Urine Occult Blood Urine Nitrate Urine Bilirubin Urine Urobilinogen Ur Leukocyte Esterase Urine RBC Urine WBC Ur Squamous Epith Cells Urine Bacteria Ur Culture Indicated? Micro UA Comment Vol Urine Centrifuged [facility] Medical History (Updated 07/08/25 @ 20:33 by Jefe Campbell MD) CAD (coronary artery disease) History of stroke HTN (hypertension) Diabetes Aftercare following left shoulder joint replacement surgery Endometrial cancer Surgical History H/O heart artery stent History of robot-assisted laparoscopic hysterectomy Social History household members: none Smoking Status: Former smoker Assessment & Plan Time-Based Coding :: [TOTAL MINUTES] spent with patient and on the chart (including review of chart, obtaining history, exam, reviewing outside data, placing orders, documenting exam and treatment plan, and counseling patient) on [DATE].
--- NOTE | 2025-07-09 10:58 | PC.NURSE ---
late entry 07/08/25 patient arrived from ED. She is A&OX4, VSS, afebrile and 95% 02 sats on RA. NSR on telemetry HR WNL. Clear but dimminished lung sounds throughout. She reports pain tolerable with PRN oxycodone and tylenol today. She has a poor appetite and c/o dyspepsia and acid reflux. Per MD orders protonix and tums administered. Continuous monitoring.
[2025-07-09] MEDS: PREGABALIN 25 MG CAPSULE 50 MG PO ×2 (15:39→20:36)
--- NOTE | 2025-07-09 19:06 | PC.NURSE ---
Patient arrived from ED, this a.m. approximately 1030. She is A&OX4, VSS, slightly hypertensive. She c/o pain with turning or being touched on L side due to severe neuropathy. She is incontinent of urine and stool needing max assist care to turn in bed. Call light in reach, bed alarm, Isolation due to hx of ESBL in urine, q 2 turning, ACHS BG, frequent rounding.
[2025-07-09] MEDS: ALBUTEROL/IPRATROPIUM 3 ML AMPUL INH (19:09)
[2025-07-09] MEDS: INSULIN GLARGINE 100 UNIT/ML 3ML PEN 10 UNIT SUBCUT (20:35)
[2025-07-09] MEDS: MELATONIN 3 MG TABLET 9 MG PO (20:36)
[2025-07-09] MEDS: ERTAPENEM 1 GM in SODIUM CHLORIDE 0.9% 100 ML IV (20:41)
--- NOTE | 2025-07-09 23:39 | PC.NURSE ---
This RN provided pericare after large BM, while changing clothing,brief, and incontinent pad patient moved her body and smeared a small (dime size) BM on the bed sheet, RN did not notice until completing pericare and full change. RN brought this to attention of the patient but patient declined doing a full linen change. RN advised patient to allow staff to do a full bed change but Patient refused stating she is all clean and comfortable. RN then cleaned the small area with SANI wipes and advised that in morning will do full linen change. Patient agreed requesting to sleep thru the night. RN advised patient that we are happy to change at anytime if patient changes her mind. Patient verbalized understanding, with no further questions.
--- NOTE | 2025-07-10 04:05 | PC.NURSE ---
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 Patient verbalized understanding of importance of lab draw, but stated she wanted to prioritize her rest. 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
[2025-07-10] MEDS: PANTOPRAZOLE DR 40 MG TABLET PO (06:54)
[2025-07-10 07:46] VITALS: PULSE 76; RESP 18; O2SAT 94
[2025-07-10] MEDS: ALBUTEROL/IPRATROPIUM 3 ML AMPUL INH (07:46)
[2025-07-10 08:00] VITALS: BP 116/50; PULSE 79; RESP 20; TEMP 36; O2SAT 93
[2025-07-10] MEDS: INSULIN LISPRO 100 UNIT/ML 3ML VIAL SUBCUT ×4 (08:43→21:52)
[2025-07-10] MEDS: ATORVASTATIN 20 MG TABLET 40 MG PO (08:55)
[2025-07-10] MEDS: PREGABALIN 25 MG CAPSULE 50 MG PO ×3 (08:55→21:42)
[2025-07-10] MEDS: CLOPIDOGREL 75 MG TABLET PO (08:55)
[2025-07-10 08:56] VITALS: BP 116/50; PULSE 75
[2025-07-10] MEDS: METOPROLOL ER 25 MG TABLET 12.5 MG PO (08:56)
[2025-07-10] MEDS: ENOXAPARIN 40 MG/0.4 ML SYRINGE SUBCUT (08:56)
[2025-07-10] MEDS: MONTELUKAST 10 MG TABLET PO (08:56)
--- NOTE | 2025-07-10 10:20 | PM.PN.1 ---
Subjective Subjective Date Patient Seen: 07/10/25 Interval history: 74 y/o long-term resident of [facility] since the CVA and Lt hemiparesis, with a Hx of recurrent UTI, most lately with ESBL, presented with dysuria. It started few days ago and she was on several doses of Macrobid and amoxicillin, apparently. Complains on suprapubic tenderness, w/o LBP or flank pain, fever, sweats. Feels cold but w/o rigors. UA appears infected but she is afebrile, if anything hypertensive, w/o leukocytosis. She was given meropenem based on last UC results from last month. Placed in observation to medicine with a diagnosis of acute Lt pyelonephritis, for IV abx and monitoring. 07/09: She says she has feeling a bit better. She is very interested in how long she will be here in the hospital. She lives at the [facility]. Her CBC and BMP are normal with a glucose of 313. The urine culture is growing Gram-negative bacilli. The last urine culture was ESBL E coli. She is now on ertapenem. 07/10: Her urine culture is growing E coli, sensitive to both piperacillin and ertapenem. No mention of ESBL this time. She will need a full 10 day course of IV antibiotics. This can be completed outside of the hospital. She is feeling somewhat better so is likely to be able to go soon. Blood sugar ranging 200-303. PFSH Medical History CAD (coronary artery disease) History of stroke HTN (hypertension) Diabetes Aftercare following left shoulder joint replacement surgery Endometrial cancer Surgical History H/O heart artery stent History of robot-assisted laparoscopic hysterectomy Social History Smoking Status: Never smoker Assessment & Plan Assessment and plan Acute Complicated Lt pyelonephritis - last UC grew ESBL - current UC is E. coli, sensitive to ertapenem and piperacillin, no mention of ESBL. - not septic - ertapenem IV for 10 days, which can be completed at [facility]. Kidney stones - follows with urology, had prior stents - risk for recurrent infections - Rt kidney non-obstructive stone DM - SS, CCD CAD / HTN - metoprolol - Hx of stent, w/o angina Hx of Rt MCA CVA / Lt hemiparesis - supportive care - using electric scooter at [facility] Constipation - bowel care DVT prophylaxis - Lovenox Disposition: Likely discharge 07/11 to halfway facility for completion of 10 day course of IV ertapenem (last day 07/19), as [facility] not able to provide this treatment. Exam Vital Signs (past 8 hours): - 07/10/25 07:46 07/10/25 08:00 07/10/25 08:56 Temperature 96.8 F L Pulse Rate 76 79 75 Respiratory Rate 18 20 Blood Pressure 116/50 L 116/50 L Pulse Oximetry 94 93 Oxygen Delivery Method Room Air Oxygen Flow Rate 0 Fraction of Inspired Oxygen 21 SaO2/FiO2 Ratio 466 Oxygen Delivery Method Room Air Oxygen Flow Rate 0 Objective Labs 07/09/25 05:33 07/09/25 05:33 Labs: Laboratory Results - last 24 hr 07/09/25 07/09/25 07/09/25 11:48 16:18 20:30 POC Whole Bld Glucose 205 H 221 H 303 H 07/10/25 07:16 POC Whole Bld Glucose 200 H D PFSH Medical History (Updated 07/08/25 @ 20:33 by Jefe Campbell MD) CAD (coronary artery disease) History of stroke HTN (hypertension) Diabetes Aftercare following left shoulder joint replacement surgery Endometrial cancer Surgical History H/O heart artery stent History of robot-assisted laparoscopic hysterectomy Social History household members: none Smoking Status: Former smoker Assessment & Plan Time-Based Coding :: [TOTAL MINUTES] spent with patient and on the chart (including review of chart, obtaining history, exam, reviewing outside data, placing orders, documenting exam and treatment plan, and counseling patient) on [DATE].
[2025-07-10 10:56] LABS: Hemoglobin A1C% w Est Avg Glu 10.6 % (4.0-6.0)
[2025-07-10] MEDS: ERTAPENEM 1 GM in SODIUM CHLORIDE 0.9% 100 ML IV (20:15)
[2025-07-10 21:00] VITALS: BP 133/53; PULSE 75; RESP 15; TEMP 36.4; O2SAT 95
[2025-07-10] MEDS: MELATONIN 3 MG TABLET 9 MG PO (21:42)
[2025-07-10] MEDS: INSULIN GLARGINE 100 UNIT/ML 3ML PEN 15 UNIT SUBCUT (21:53)
--- NOTE | 2025-07-11 | DI.RAD.S_ITS ---
PROCEDURE: XR CHEST FOR PICC 1V INDICATIONS: PICC PLACEMENT COMPARISON: [facility], CR, XR CHEST 2V, 10/23/2023, 15:47. FINDINGS: PICC was placed by the intravenous therapy team from the right side. Fluoroscopic spot film demonstrates the tip of PICC projecting to the area of [id number] superior vena cava could be advanced up to 7 cm to the level of the distal superior vena cava/right atrial junction. No pneumothorax. Cardiopericardial silhouette is mildly enlarged. Prominent quiana, pulmonary vascular congestion and/or hilar lymph nodes, bibasilar subsegmental atelectasis, peribronchial thickening and patchy opacities noted. IMPRESSION: Tip of PICC projects to the area of mid superior vena cava as discussed above. Follow-up suggested. Other findings as above Dictated by: Roverto Sarmiento M.D. on 07/11/2025 at 13:06 Approved by: Roverto Sarmiento M.D. on 07/11/2025 at 13:08
[2025-07-11] MEDS: PANTOPRAZOLE DR 40 MG TABLET PO (06:59)
[2025-07-11 07:00] VITALS: BP 123/54; PULSE 72; RESP 18; TEMP 36.7; O2SAT 95
[2025-07-11] MEDS: INSULIN LISPRO 100 UNIT/ML 3ML VIAL SUBCUT ×4 (08:06→20:26)
[2025-07-11 08:19] VITALS: BP 124/54; PULSE 72
[2025-07-11] MEDS: METOPROLOL ER 25 MG TABLET 12.5 MG PO (08:19)
[2025-07-11] MEDS: ATORVASTATIN 20 MG TABLET 40 MG PO (08:19)
[2025-07-11] MEDS: MONTELUKAST 10 MG TABLET PO (08:19)
[2025-07-11] MEDS: PREGABALIN 25 MG CAPSULE 50 MG PO ×3 (08:19→20:19)
[2025-07-11] MEDS: CLOPIDOGREL 75 MG TABLET PO (08:20)
[2025-07-11] MEDS: ENOXAPARIN 40 MG/0.4 ML SYRINGE SUBCUT (09:30)
--- NOTE | 2025-07-11 11:07 | CM.DANOTE ---
Initial DCP Assessment Visit Note Reviewed EMR and team rounds for pt's medical status and updates. Went to meet with pt at bedside, however she was too drowsy to meet and/or discuss anything at the time. Pt resides modified independently at [facility]. She will discharge to [facility] rehab at d/c in order to receive a course of IV antibiotics. OPINION POLLS SURVEY WORKER will assist with transition to SNF and coordinate transfer, as well as antibiotic plan. Payor: [facility] PCP: Dr. Townsend Pt is a 74 year-old F with a PMH of a CVA 10 years ago that resulted in left-sided deficits, uses an electric scooter for mobility. She's had a persistent UTI that is not improving, despite having just completed 4-rounds of oral antibiotics OP. Plan was made to start her on IV fluids and IV antibiotics, and admit f=to further tx and symptom management. OPINION POLLS SURVEY WORKER will continue to monitor for any further evolving needs. 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 No History Provided By Medical Record Expected Length of 3 Stay Has Patient been No admitted in last 30 days? Prior Living Assisted Living Arrangements Household Members none Type of Relies on Others transporation used prior to admit Facility Name [facility] Admitted From: Willing to Return to Yes Facility? Independent with ADL No: modified independent 's Is patient alert and Yes oriented? Needs Assistance Bathing,Meal Prep,Managing Medications,Home Chores / With Shopping Caregiver for No Another DME Already Rented / Bath Bench,Elevated Toilet Seat,FWW / Walker Owned Comment Electric scooter Patient/Family Correction Facility Preference Barriers to No Discharge Discharge Plan Correction Facility Transportation Facility Arrangement Referrals Initiated Correction If patient plan is No: pending SNF: Has PASSR been completed? Medicare Choice List Yes Provided Has Agency SNF been Yes contacted White[employer] Updated Yes in Patient Room with name and ext. # of Group Fitness Instructor Review Status In Process Please Provide Date 07/11/25 Initial DC Assessment Was Performed
--- NOTE | 2025-07-11 11:35 | CM.DPC ---
Gabriel spoke with Tiffani at . Tiffani requested a Physical Therapy note for Auth. PT order placed. Per Tiffani, Auth like tomorrow with PT eval.
--- NOTE | 2025-07-11 11:53 | DIET.CONS ---
Dietary Consultation Note Admission Date: 07/10/2025 10:17 Assessment: 74 y F admitted for pyelonephritis. Dietitian screened per RN reporting pt requesting DM educ. Met with pt at bedside. Reports this is new dx for her and wanting information on nutrition. Lives at [facility] assisted care after CVA. Reports they assist her with meds. Will d/c to [facility] rehab from here. Diet recall: oatmeal, fruit, coffee with creamer and sugar cubes sandwich deli, dessert pasta/rice/potato and meat and veg dessert or fruit 1 regular coke sometimes ritz crackers or fritos as snacks Ht: 160.02 cm Wt: 89.358 kg BMI: 34.9 UBW: Last BM: 07/10/25 (07/10/25 18:39) MNA: 14 Drew Score: 16 Diet: 07/09/25 Dinner Carbohydrate Consistent Diet Diet Modifications: Carbohydrate level: Medium (3 CHO) Reflex DM orders: No Food Texture: Level 7 - Regular Liquid Consistency: Level 0 - Thin Nutrition Percent Meal Consumed 100% 07/10/25 18:39 Percent Meal Consumed 75% 07/10/25 09:00 Percent Meal Consumed 95% 07/09/25 18:57 Labs: RBC 4.68 X10^6/uL (4.0-5.2) 07/09/25 05:33 Hgb 11.9 g/dL (12.0-16.0) L 07/09/25 05:33 Hct 36.7 % (36-46) 07/09/25 05:33 Creatinine 0.77 mg/dL (0.52-1.04) 07/09/25 05:33 Hemoglobin A1c 10.6 % (4.0-6.0) H 07/09/25 05:33 Nutrition Diagnosis: Altered nutrition related lab values (A1c%) r/t endocrine dysfunction and excessive CHO intake aeb A1c 10.6% on 07/09/25 Interventions: Discussed and provided handouts on the following: -Plate Method, impact of macronutrients on blood sugar, meal timing, carbohydrate counting, pairing macronutrients and spreading out carbohydrates for better blood glucose management -Recommended servings for carbohydrates at meals and snacks -ADA BG goals and A1c goals Goals: Use stevia in coffee instead of regular sugar switch to coke zero over regular soda portion rice/pasta/potatoes at meals to 1 cup reduce dessert portion EER: 30-45 g CHO at meals; 15-30 g CHO at snacks Monitoring/Evaluations: f/u prn for additional ?s Electronically Signed by: Gissell Camarena 07/11/25 11:53 Clinical Dietitian [address] [address]
[2025-07-11 11:56] VITALS: PULSE 72
[2025-07-11] MEDS: INSULIN GLARGINE 100 UNIT/ML 3ML PEN SUBCUT (14:37)
--- NOTE | 2025-07-11 15:33 | PM.PN.1 ---
Subjective Subjective Date Patient Seen: 07/11/25 Interval history: 74 y/o long-term resident of [facility] since the CVA and Lt hemiparesis, with a Hx of recurrent UTI, most lately with ESBL, presented with dysuria. It started few days ago and she was on several doses of Macrobid and amoxicillin, apparently. Complains on suprapubic tenderness, w/o LBP or flank pain, fever, sweats. Feels cold but w/o rigors. UA appears infected but she is afebrile, if anything hypertensive, w/o leukocytosis. She was given meropenem based on last UC results from last month. Placed in observation to medicine with a diagnosis of acute Lt pyelonephritis, for IV abx and monitoring. 07/09: She says she has feeling a bit better. She is very interested in how long she will be here in the hospital. She lives at the [facility]. Her CBC and BMP are normal with a glucose of 313. The urine culture is growing Gram-negative bacilli. The last urine culture was ESBL E coli. She is now on ertapenem. 07/10: Her urine culture is growing E coli, sensitive to both piperacillin and ertapenem. No mention of ESBL this time. She will need a full 10 day course of IV antibiotics. This can be completed outside of the hospital. She is feeling somewhat better so is likely to be able to go soon. Blood sugar ranging 200-303. 07/11: A PICC line was placed today. She will be receiving a physical therapy evaluation today and likely discharge to the [facility] facility in 1-2 days pending [facility] approval. PFSH Medical History CAD (coronary artery disease) History of stroke HTN (hypertension) Diabetes Aftercare following left shoulder joint replacement surgery Endometrial cancer Surgical History H/O heart artery stent History of robot-assisted laparoscopic hysterectomy Social History Smoking Status: Never smoker Assessment & Plan Assessment and plan Acute Complicated Lt pyelonephritis - last UC grew ESBL - current UC is E. coli, sensitive to ertapenem and piperacillin, no mention of ESBL. - not septic - ertapenem IV for 10 days, which can be completed at [facility](07/19). - PT eval Kidney stones - follows with urology, had prior stents - risk for recurrent infections - Rt kidney non-obstructive stone DM - SS, CCD CAD / HTN - metoprolol - Hx of stent, w/o angina Hx of Rt MCA CVA / Lt hemiparesis - supportive care - using electric scooter at [facility] Constipation - bowel care DVT prophylaxis - Lovenox Disposition: Likely discharge 07/12 to [facility] facility for completion of 10 day course of IV ertapenem (last day 07/19), as [facility] not able to provide this treatment. Exam Vital Signs (past 8 hours): - 07/11/25 08:19 07/11/25 11:56 Pulse Rate 72 72 Blood Pressure 124/54 L Fraction of Inspired Oxygen 21 SaO2/FiO2 Ratio 466 Oxygen Delivery Method Room Air Oxygen Flow Rate 0 Objective Labs 07/09/25 05:33 07/09/25 05:33 Labs: Laboratory Results - last 24 hr 07/10/25 07/10/25 07/11/25 16:19 21:04 07:22 POC Whole Bld Glucose 247 H 288 H 224 H 07/11/25 10:57 POC Whole Bld Glucose 266 H PFS Medical History (Updated 07/08/25 @ 20:33 by Jefe Campbell MD) CAD (coronary artery disease) History of stroke HTN (hypertension) Diabetes Aftercare following left shoulder joint replacement surgery Endometrial cancer Surgical History H/O heart artery stent History of robot-assisted laparoscopic hysterectomy Social History household members: none Smoking Status: Former smoker Assessment & Plan Time-Based Coding :: [TOTAL MINUTES] spent with patient and on the chart (including review of chart, obtaining history, exam, reviewing outside data, placing orders, documenting exam and treatment plan, and counseling patient) on [DATE].
--- NOTE | 2025-07-11 15:55 | PT.IIE ---
Current Diagnoses Type 2 diabetes mellitus without complications (07/10/25) Essential (primary) hypertension (07/10/25) Atherosclerotic heart disease of [place] coronary artery without angina pectoris (07/10/25) Acute pyelonephritis (07/10/25) Extended spectrum beta lactamase (ESBL) resistance (07/10/25) Personal history of transient ischemic attack (TIA), and cerebral infarction without residual deficits (07/10/25) Surgical History (Last Reviewed 07/08/25 @ 20:23 by Jefe Campbell MD) H/O heart artery stent History of robot-assisted laparoscopic hysterectomy Medical History (Last Updated 07/08/25 @ 20:33 by Jefe Campbell MD) Aftercare following left shoulder joint replacement surgery CAD (coronary artery disease) Diabetes Endometrial cancer History of stroke HTN (hypertension) Physical Therapy Inpatient Evaluation/Re-Eval M1 PT/OT-IP Prior Functional Status Start: 07/11/25 17:18 Freq: NEEDED Status: Active Protocol: Document 07/11/25 15:55 AB (Rec: 07/11/25 17:37 AB [id number]) Medical Review Prior Functional Status Medical History Yes Reviewed Communication able to make needs known Mobility and Gait pt stated that she is a 2 person assist at [facility]; pt usually uses her electric w/c for mobility but stated that she is able to transfer with 2 person assist using a hemiwalker and able to ambulate using hemiwalker to the toilet when she is able to tell when she needs to go but usually unable and just uses brief/ pads; pt cannot remember the last time she ambulated. Activities of Daily pt has assists with toileting and shower needs Living and IADL's Social History Household Members caregiver,none Living Arrangements Assisted Living Number of Floors ( One Floor Floors) Number of Stairs To pt lives at [facility] Enter/Railing? Home Environment Standard Height Toilet,Walk in Shower Home Equipment Power Wheelchair/Scooter,Raised Toilet Seat Without Armrests,Shower Seat with Backrest,Hand Held Shower, Lift Recliner,Grab Bars Near Toilet Additional Social has a hemiwalker, hospital bed with R rail History Comment M2 PT-IP Current Condition Start: 07/11/25 17:18 Freq: NEEDED Status: Active Protocol: Document 07/11/25 15:55 AB (Rec: 07/11/25 17:37 AB [id number]) Physical Therapy Current Condition Current Condition Evaluation Date 07/11/25 Treatment Diagnosis UTI; difficulty in walking Onset Date 07/10/25 M3 PT-IP Subjective Start: 07/11/25 17:18 Freq: NEEDED Status: Active Protocol: Document 07/11/25 15:55 AB (Rec: 07/11/25 17:37 AB [id number]) Subjective Physical Therapy Visit Type Type Initial Evaluation Visit Start Time 15:55 Visit Stop Time 16:30 Number of CATALOGUE AND SPECIAL PRODUCTS MANAGER Visits 0 Physical Therapy Visit Comments Patient Comments agreeable to do PT Therapy Pain Assessment Pain When Pain Assessed During Mobility Pain Present Pain Present Pain Reported Location Left Knee Scale Used pain scale not stated Pain Behaviors Calling Out,Facial Grimacing,Guarding,Wincing Pain Management Modification of Treatment,Re-positioning,Timing of Techniques Activity with Medications M4 PT-IP Mobility and Gait Start: 07/11/25 17:18 Freq: NEEDED Status: Active Protocol: Document 07/11/25 15:55 AB (Rec: 07/11/25 17:37 [id number]) PT-Bed Mobility Assessment Rolling Type of Rolling Bilateral Level of Assist Maximal Assistance,2 Person Assistance Supine to Sit Supine to Sit Maximum Assistance,Total Assistance,2 Person Assistance ,Head of Bed Elevated Sit to Supine Sit to Supine Total Assistance,2 Person Assistance,Bedrails Scooting Scooting to Edge of Dependent Bed PT-Transfer Assessment Sit to and From Stand Sit to and from Maximum Assistance,2 Person Assistance,Use of Upper Stand Extremities Equipment Orthotic/Prosthetic No Devices or Brace: Comments Mobility Comments pt in bed and agreed to do PT. obtained PLOF and home set up. pt stated that she needs to be cleaned up since she had BM in bed. NAC in room. pt completed rolling L<>R max A x 2 rolling to the R and total A x 2 rolling to the R and max cues. NAC assisted with hygiene care and total A x 2 for brief management. supine to sit max A x 2 and max cues with HOB elevated. assisted pt with putting L AFO and shoes on. max A for sitting on EOB. presents with increase posterior LOB. pt with increase fear of falling with increase trunk guarding in extension. sit to stand max A x 2 and max cues with increase posterior leaning. cued pt but pt with increase fear of falling. instructed to sit down. educated pt on safety and agreed to get up again. sit to stand max A x 2 and max cues. able to stand using hemiwalker for support max A x 2 and max cues. continues to have increase posterior trunk lean ; unable to take steps. pt sat back on EOB. assisted back to bed and completed sit to supine total A x 2 and max cues. positioned pt in bed total A x 2. call light and table placed within reach. PT-Balance Assessment Sitting Balance and Reactions Static Sitting Poor Balance Ability Dynamic Sitting Poor Balance Ability Standing Balance and Reactions Static Standing Poor Balance Ability Dynamic Standing Poor Balance Ability Device Used FWW M5 PT-IP Objective Assessments Start: 07/11/25 17:18 Freq: NEEDED Status: Active Protocol: Document 07/11/25 15:55 AB (Rec: 07/11/25 17:37 AB [id number]) Orientation Orientation/Cognition Level of Alertness Alert Orientation Name Language Function No Deficits Noted Ability Safety Awareness Decreased Safety Awareness Memory Description Short Term Impaired,Chief Cardiopulmonary Technologist Impaired Strength Lower Extremity Strength Assessment Left Impaired Hip 3-/5 Knee 3+/5 Ankle 1/5 Muscle Tone Muscle Tone Location Lower Extremity Type of Tone Extensor Severity of Tone Moderate Left Upper Extremity Type of Tone Hypotonicity Severity of Tone Severe M6 PT-IP Treatment Start: 07/11/25 17:18 Freq: NEEDED Status: Active Protocol: Document 07/11/25 15:55 AB (Rec: 07/11/25 17:37 AB [id number]) Physical Therapy Treatment Education Education Provided Safety M7 PT-IP Assessment and Plan Start: 07/11/25 17:18 Freq: NEEDED Status: Active Protocol: Document 07/11/25 15:55 AB (Rec: 07/11/25 17:37 AB [id number]) PT Summary Assessment and Plan Potential Rehabilitation Fair Potential Status of Condition Evolving at Evaluation Summary Impairments Pain,ROM,Strength,Balance,Coordination,Sensation,Tone, Cognition,Bed Mobility,Transfers,Gait,Activity Tolerance Assessment Summary pt is a 74 y/o F who is admitted for UTI. pt lives at [facility]. pt requiring max A x 2 to total A x 2 and max cues. pt with h/o CVA with L sided weakness contributing to current level of assistance needed. pt plans to go to SNF rehab. Goals Bed Mobility Goal Moderate Assistance Transfer Goal Moderate Assistance Gait Goal Moderate Assistance,Otilio Walker Gait Distance 15 Days to Meet Goals 10 Frequency of Treatment Frequency Of Once a Day Treatment Treatment Plan Physical Therapy Bed Mobility Training,Transfer Training,Gait Training, Treatment Plan Therapeutic Exercise,Balance Retraining,Discharge Planning,Hot or Cold Pack,Neuromuscular Re-ed, Coordination Retraining,Manual Therapy Precautions Other Precautions falls, contact precautions Recommendations To Nursing Amount of Assist Mechanical Lift Needed Discharge Recommendations PT Discharge SNF Rehab Recommendations Transportation Needs Wheelchair/Cabulance,Stretcher/Ambulance at Discharge - PT assist 2
[2025-07-11 20:00] VITALS: BP 129/44; PULSE 66; RESP 17; TEMP 36.4; O2SAT 98
[2025-07-11] MEDS: ERTAPENEM 1 GM in SODIUM CHLORIDE 0.9% 100 ML IV (20:19)
[2025-07-11] MEDS: MELATONIN 3 MG TABLET 9 MG PO (20:19)
[2025-07-11] MEDS: INSULIN GLARGINE 100 UNIT/ML 3ML PEN 20 UNIT SUBCUT (20:28)
[2025-07-12] MEDS: PANTOPRAZOLE DR 40 MG TABLET PO (05:30)
[2025-07-12 07:00] VITALS: BP 129/45; PULSE 70; RESP 18; TEMP 36.4; O2SAT 96
[2025-07-12] MEDS: ATORVASTATIN 20 MG TABLET 40 MG PO (08:50)
[2025-07-12 08:55] VITALS: BP 129/45; PULSE 65
[2025-07-12] MEDS: METOPROLOL ER 25 MG TABLET 12.5 MG PO (08:55)
[2025-07-12] MEDS: CLOPIDOGREL 75 MG TABLET PO (08:58)
[2025-07-12] MEDS: ENOXAPARIN 40 MG/0.4 ML SYRINGE SUBCUT (08:59)
[2025-07-12] MEDS: INSULIN LISPRO 100 UNIT/ML 3ML VIAL SUBCUT ×5 (09:05→21:11)
--- NOTE | 2025-07-12 09:17 | CM.DPC ---
CM emailed PT eval to for SNF Auth.
--- NOTE | 2025-07-12 09:47 | PM.PN.1 ---
Subjective Subjective Date Patient Seen: 07/12/25 Interval history: 74 y/o long-term resident of [facility] since the CVA and Lt hemiparesis, with a Hx of recurrent UTI, most lately with ESBL, presented with dysuria. It started few days ago and she was on several doses of Macrobid and amoxicillin, apparently. Complains on suprapubic tenderness, w/o LBP or flank pain, fever, sweats. Feels cold but w/o rigors. UA appears infected but she is afebrile, if anything hypertensive, w/o leukocytosis. She was given meropenem based on last UC results from last month. Placed in observation to medicine with a diagnosis of acute Lt pyelonephritis, for IV abx and monitoring. 07/09: She says she has feeling a bit better. She is very interested in how long she will be here in the hospital. She lives at the [facility]. Her CBC and BMP are normal with a glucose of 313. The urine culture is growing Gram-negative bacilli. The last urine culture was ESBL E coli. She is now on ertapenem. 07/10: Her urine culture is growing E coli, sensitive to both piperacillin and ertapenem. No mention of ESBL this time. She will need a full 10 day course of IV antibiotics. This can be completed outside of the hospital. She is feeling somewhat better so is likely to be able to go soon. Blood sugar ranging 200-303. 07/11: A PICC line was placed today. She will be receiving a physical therapy evaluation today and likely discharge to the [facility] nursing facility in 1-2 days pending [facility] approval. 07/12: Insurance approval for IV antibiotic treatment at senior living facility is pending. No new issues. PFSH Medical History CAD (coronary artery disease) History of stroke HTN (hypertension) Diabetes Aftercare following left shoulder joint replacement surgery Endometrial cancer Surgical History H/O heart artery stent History of robot-assisted laparoscopic hysterectomy Social History Smoking Status: Never smoker Assessment & Plan Assessment and plan Acute Complicated Lt pyelonephritis - last UC grew ESBL - current UC is E. coli, sensitive to ertapenem and piperacillin, no mention of ESBL. - not septic - ertapenem IV for 10 days, which can be completed at [facility](07/17). - PT eval Kidney stones - follows with urology, had prior stents - risk for recurrent infections - Rt kidney non-obstructive stone DM - SS, CCD CAD / HTN - metoprolol - Hx of stent, w/o angina Hx of Rt MCA CVA / Lt hemiparesis - supportive care - using electric scooter at [facility] Constipation - bowel care DVT prophylaxis - Lovenox Disposition: Likely discharge 07/14 to senior living facility for completion of 10 day course of IV ertapenem (last day 07/17), as [facility] not able to provide this treatment. Exam Vital Signs (past 8 hours): - 07/12/25 07:00 07/12/25 08:55 Temperature 97.5 F L Pulse Rate 70 65 Respiratory Rate 18 Blood Pressure 129/45 L 129/45 L Pulse Oximetry 96 Fraction of Inspired Oxygen 21 SaO2/FiO2 Ratio 466 Oxygen Delivery Method Room Air Oxygen Flow Rate 0 Narrative Exam Narrative: Alert and oriented x3. No apparent distress. She is feeling better. Heart is regular rate and rhythm without murmur. Lungs are clear to auscultation bilaterally. Extremities have no ankle edema. Objective Labs 07/09/25 05:33 07/09/25 05:33 Labs: Laboratory Results - last 24 hr 07/11/25 07/11/25 07/11/25 10:57 15:57 20:03 POC Whole Bld Glucose 266 H 185 H 245 H 07/12/25 07:52 POC Whole Bld Glucose 189 H PFS Medical History (Updated 07/08/25 @ 20:33 by Jefe Campbell MD) CAD (coronary artery disease) History of stroke HTN (hypertension) Diabetes Aftercare following left shoulder joint replacement surgery Endometrial cancer Surgical History H/O heart artery stent History of robot-assisted laparoscopic hysterectomy Social History household members: caregiver and none Smoking Status: Former smoker Assessment & Plan Time-Based Coding :: [TOTAL MINUTES] spent with patient and on the chart (including review of chart, obtaining history, exam, reviewing outside data, placing orders, documenting exam and treatment plan, and counseling patient) on [DATE].
[2025-07-12] MEDS: MONTELUKAST 10 MG TABLET PO (10:26)
[2025-07-12] MEDS: PREGABALIN 25 MG CAPSULE 50 MG PO ×2 (10:26→17:15)
[2025-07-12] MEDS: INSULIN GLARGINE 100 UNIT/ML 3ML PEN SUBCUT (12:48)
[2025-07-12] MEDS: INSULIN LISPRO 100 UNIT/ML 3ML VIAL 8 UNIT SUBCUT ×2 (12:49→17:19)
--- NOTE | 2025-07-12 12:53 | PT-IP ANOTE ---
checked on pt this morning and refusing PT. stated that she does not feel like doing PT. educated pt on benefits of mobility and pt continues to refuse.
[2025-07-12 14:02] VITALS: BP 110/42; PULSE 70
--- NOTE | 2025-07-12 14:33 | PT-IP ANOTE ---
checked on pt again this afternoon and continues to refuse PT.
[2025-07-12 19:00] VITALS: BP 153/60; PULSE 67; RESP 16; TEMP 36.6; O2SAT 98
[2025-07-12] MEDS: ERTAPENEM 1 GM in SODIUM CHLORIDE 0.9% 100 ML IV (20:08)
[2025-07-12] MEDS: MELATONIN 3 MG TABLET 9 MG PO (20:09)
[2025-07-12] MEDS: INSULIN GLARGINE 100 UNIT/ML 3ML PEN 25 UNIT SUBCUT (21:12)
[2025-07-13] MEDS: PANTOPRAZOLE DR 40 MG TABLET PO (06:01)
[2025-07-13] MEDS: ONDANSETRON 4 MG ODT PO (06:30)
[2025-07-13 07:00] VITALS: BP 113/58; PULSE 63; RESP 20; TEMP 36.4; O2SAT 94
[2025-07-13] MEDS: INSULIN LISPRO 100 UNIT/ML 3ML VIAL 8 UNIT SUBCUT ×3 (08:05→17:43)
[2025-07-13] MEDS: INSULIN LISPRO 100 UNIT/ML 3ML VIAL SUBCUT ×3 (08:05→17:43)
[2025-07-13] MEDS: CLOPIDOGREL 75 MG TABLET PO (08:44)
[2025-07-13] MEDS: MONTELUKAST 10 MG TABLET PO (08:44)
[2025-07-13 08:45] VITALS: BP 113/58; PULSE 63
[2025-07-13] MEDS: PREGABALIN 25 MG CAPSULE 50 MG PO ×3 (08:45→21:04)
[2025-07-13] MEDS: METOPROLOL ER 25 MG TABLET 12.5 MG PO (08:45)
[2025-07-13] MEDS: ENOXAPARIN 40 MG/0.4 ML SYRINGE SUBCUT (08:46)
[2025-07-13] MEDS: ATORVASTATIN 20 MG TABLET 40 MG PO (08:51)
--- NOTE | 2025-07-13 12:14 | PM.PN.1 ---
Subjective Subjective Date Patient Seen: 07/13/25 Interval history: 74 y/o long-term resident of [facility] since the CVA and Lt hemiparesis, with a Hx of recurrent UTI, most lately with ESBL, presented with dysuria. It started few days ago and she was on several doses of Macrobid and amoxicillin, apparently. Complains on suprapubic tenderness, w/o LBP or flank pain, fever, sweats. Feels cold but w/o rigors. UA appears infected but she is afebrile, if anything hypertensive, w/o leukocytosis. She was given meropenem based on last UC results from last month. Placed in observation to medicine with a diagnosis of acute Lt pyelonephritis, for IV abx and monitoring. 07/09: She says she has feeling a bit better. She is very interested in how long she will be here in the hospital. She lives at the [facility]. Her CBC and BMP are normal with a glucose of 313. The urine culture is growing Gram-negative bacilli. The last urine culture was ESBL E coli. She is now on ertapenem. 07/10: Her urine culture is growing E coli, sensitive to both piperacillin and ertapenem. No mention of ESBL this time. She will need a full 10 day course of IV antibiotics. This can be completed outside of the hospital. She is feeling somewhat better so is likely to be able to go soon. Blood sugar ranging 200-303. 07/11: A PICC line was placed today. She will be receiving a physical therapy evaluation today and likely discharge to the [facility] nursing facility in 1-2 days pending [facility] approval. 07/12: Insurance approval for IV antibiotic treatment at residential facility is pending. No new issues. 07/13: Blood sugars range from 75 up to 334. She is now wearing a left-sided AFO for post stroke foot drop. She is requiring 2 person assist for transfers which is her baseline. Assessment and plan Acute Complicated Lt pyelonephritis - Previous UC grew ESBL - current UC is E. coli, sensitive to ertapenem and piperacillin, no mention of ESBL. - not septic - ertapenem IV for 10 days, which can be completed at [facility](07/17). - PT liliamal confirms that she is at her baseline of 2 person assist for transfers Kidney stones - follows with urology, had prior stents - risk for recurrent infections - Rt kidney non-obstructive stone DM - SS, CCD CAD / HTN - metoprolol - Hx of stent, w/o angina Hx of Rt MCA CVA / Lt hemiparesis - supportive care - using electric scooter at [facility] Constipation - bowel care DVT prophylaxis - Lovenox Disposition: Likely discharge 07/14 to residential facility for completion of 10 day course of IV ertapenem (last day 07/17), as [facility] not able to provide this treatment. Exam Vital Signs (past 8 hours): - 07/13/25 07:00 07/13/25 08:45 Temperature 97.6 F Pulse Rate 63 63 Respiratory Rate 20 Blood Pressure 113/58 L 113/58 L Pulse Oximetry 94 Fraction of Inspired Oxygen 21 SaO2/FiO2 Ratio 466 Oxygen Delivery Method Room Air Oxygen Flow Rate 0 Objective Labs 07/09/25 05:33 07/09/25 05:33 Labs: Laboratory Results - last 24 hr 07/12/25 07/12/25 07/13/25 16:04 20:33 07:32 POC Whole Bld Glucose 180 H D 243 H 175 H 07/13/25 11:02 POC Whole Bld Glucose 132 H [facility] Medical History (Updated 07/08/25 @ 20:33 by Jefe Campbell MD) CAD (coronary artery disease) History of stroke HTN (hypertension) Diabetes Aftercare following left shoulder joint replacement surgery Endometrial cancer Surgical History H/O heart artery stent History of robot-assisted laparoscopic hysterectomy Social History household members: caregiver and none Smoking Status: Former smoker Assessment & Plan Time-Based Coding :: [TOTAL MINUTES] spent with patient and on the chart (including review of chart, obtaining history, exam, reviewing outside data, placing orders, documenting exam and treatment plan, and counseling patient) on [DATE].
[2025-07-13 15:26] VITALS: BP 139/40; PULSE 69
--- NOTE | 2025-07-13 15:58 | CM.DPC ---
DCP SNF Planning: Per MD, pt remains stable for d/c to SNF on IV-Abx before return to [facility]. LALO spoke to admissions at [facility], auth still pending most of the day but auth approved around 1600 today and [facility] can accept pt tomorrow Mon 07/14 likely around 1130. [facility] still needed. SAVI Tijerina
--- NOTE | 2025-07-13 16:57 | PT.IPTN ---
Current Diagnoses Type 2 diabetes mellitus without complications (07/10/25) Essential (primary) hypertension (07/10/25) Atherosclerotic heart disease of [place] coronary artery without angina pectoris (07/10/25) Acute pyelonephritis (07/10/25) Extended spectrum beta lactamase (ESBL) resistance (07/10/25) Personal history of transient ischemic attack (TIA), and cerebral infarction without residual deficits (07/10/25) Physical Therapy Treatment Note M2 PT-IP Current Condition Start: 07/11/25 17:18 Freq: NEEDED Status: Active Protocol: Document 07/11/25 15:55 AB (Rec: 07/11/25 17:37 AB [id number]) Physical Therapy Current Condition Current Condition Evaluation Date 07/11/25 Treatment Diagnosis UTI; difficulty in walking Onset Date 07/10/25 M3 PT-IP Subjective Start: 07/11/25 17:18 Freq: NEEDED Status: Active Protocol: Document 07/13/25 16:49 [facility] (Rec: 07/13/25 16:57 [facility] [id number]) Subjective Physical Therapy Visit Type Type Treatment Note Notes Pt seen [phone] and [id number] Number of MAIL HANDLER Visits 0 Physical Therapy Visit Comments Patient Comments agreeable to do PT Therapy Pain Assessment Pain When Pain Assessed During Mobility Pain Present Pain Present Pain Reported Location Left Knee Pain Behaviors Calling Out,Facial Grimacing,Guarding,Wincing Pain Management Modification of Treatment,Re-positioning Techniques M4 PT-IP Mobility and Gait Start: 07/11/25 17:18 Freq: NEEDED Status: Active Protocol: Document 07/13/25 16:49 [facility] (Rec: 07/13/25 16:57 [facility] [id number]) PT-Bed Mobility Assessment Rolling Type of Rolling Bilateral Level of Assist Moderate Assistance,Maximal Assistance Supine to Sit Supine to Sit Maximum Assistance,Total Assistance,2 Person Assistance ,Head of Bed Elevated Sit to Supine Sit to Supine Total Assistance,2 Person Assistance,Bedrails Scooting Scooting to Edge of Maximum Assistance Bed Scooting Up and Down Dependent in Bed PT-Transfer Assessment Sit to and From Stand Sit to and from Maximum Assistance,2 Person Assistance,Use of Upper Stand Extremities Equipment Transfer Assistive Otilio Walker Device Orthotic/Prosthetic Yes Devices or Brace: Transfers Transfer Destination Bed,Chair Comments Mobility Comments HOB elevated and max A x2 for supine to sit and max A to scoot to EOB. sit to stand max Ax2 to otilio walker and max Ax2 for transfer to chair w/max cues for foot placement, hand placement and fwd lean. Left in chair w /call light in reach. later sit to stand to hemiwalker for transfer attempted max A x2 twice but pt cont to lean back and note she was scared so unable to get up. Pt did Max x2 transfer SPT to bed and w/holding PT pt stood and used legs more for transfer. dependent for sit to supine and adjusting in bed. LEft with call light in reach and bed alarm on. PT-Balance Assessment Sitting Balance and Reactions Static Sitting Poor Balance Ability Dynamic Sitting Poor Balance Ability Standing Balance and Reactions Static Standing Poor Balance Ability Dynamic Standing Poor Balance Ability Device Used FWW M5 PT-IP Objective Assessments Start: 07/11/25 17:18 Freq: NEEDED Status: Active Protocol: Document 07/11/25 15:55 AB (Rec: 07/11/25 17:37 AB [id number]) Orientation Orientation/Cognition Level of Alertness Alert Orientation Name Language Function No Deficits Noted Ability Safety Awareness Decreased Safety Awareness Memory Description Short Term Impaired,Fire Suppression Captain Impaired Strength Lower Extremity Strength Assessment Left Impaired Hip 3-/5 Knee 3+/5 Ankle 1/5 Muscle Tone Muscle Tone Location Lower Extremity Type of Tone Extensor Severity of Tone Moderate Left Upper Extremity Type of Tone Hypotonicity Severity of Tone Severe M6 PT-IP Treatment Start: 07/11/25 17:18 Freq: NEEDED Status: Active Protocol: Document 07/13/25 16:49 [facility] (Rec: 07/13/25 16:57 [facility] [id number]) Physical Therapy Treatment Education Education Provided Safety M7 PT-IP Assessment and Plan Start: 07/11/25 17:18 Freq: NEEDED Status: Active Protocol: Document 07/13/25 16:49 [facility] (Rec: 07/13/25 16:57 [facility] [id number]) PT Summary Assessment and Plan Summary Impairments Pain,ROM,Strength,Balance,Coordination,Sensation,Tone, Cognition,Bed Mobility,Transfers,Gait,Activity Tolerance Assessment Summary Pt cont to require max Ax2 to total assist for mobility . She was able to do transfer today which shows progress but would benefit from SNF rehab d/t inc weakness. Goals Bed Mobility Goal Moderate Assistance Transfer Goal Moderate Assistance Gait Goal Moderate Assistance,Otilio Walker Gait Distance 15 Days to Meet Goals 10 Frequency of Treatment Frequency Of Once a Day Treatment Treatment Plan Physical Therapy Bed Mobility Training,Transfer Training,Gait Training, Treatment Plan Therapeutic Exercise,Balance Retraining,Discharge Planning,Hot or Cold Pack,Neuromuscular Re-ed, Coordination Retraining,Manual Therapy Precautions Other Precautions falls, contact precautions Recommendations To Nursing Amount of Assist Mechanical Lift Needed Discharge Recommendations PT Discharge SNF Rehab Recommendations Transportation Needs Wheelchair/Cabulance,Stretcher/Ambulance at Discharge - PT assist 2
[2025-07-13] MEDS: REMOVE LIDOCAINE PATCH 1 EACH TOP (21:00)
[2025-07-13] MEDS: INSULIN GLARGINE 100 UNIT/ML 3ML PEN 30 UNIT SUBCUT (21:03)
[2025-07-13] MEDS: MELATONIN 3 MG TABLET 9 MG PO (21:04)
[2025-07-13] MEDS: ERTAPENEM 1 GM in SODIUM CHLORIDE 0.9% 100 ML IV (21:07)
[2025-07-13 21:38] VITALS: BP 134/54; PULSE 69; RESP 16; TEMP 36.5; O2SAT 98
[2025-07-14 08:00] VITALS: BP 128/44; PULSE 76; RESP 14; TEMP 36; O2SAT 95
--- NOTE | 2025-07-14 08:32 | PM.DS.1 ---
History of Present Illness History of Present Illness Date Patient Seen: 07/14/25 Chief complaint: Recurrent ESBL UTI Narrative: Chief complaint: Sepsis with ESBL UTI History of present illness: 74 y/o long-term resident of SNF since the CVA and Lt hemiparesis, with a Hx of recurrent UTI, most lately with ESBL, presented with dysuria. It started few days ago and she was on several doses of Macrobid and amoxicillin, apparently. Complains on suprapubic tenderness, w/o LBP or flank pain, fever, sweats. Feels cold but w/o rigors. UA appears infected but she is afebrile, if anything hypertensive, w/o leukocytosis. She was given meropenem based on last UC results from last month. Placed in observation to medicine with a diagnosis of acute Lt pyelonephritis, for IV abx and monitoring. 07/09: She says she has feeling a bit better. She is very interested in how long she will be here in the hospital. She lives at the [facility]. Her CBC and BMP are normal with a glucose of 313. The urine culture is growing Gram-negative bacilli. The last urine culture was ESBL E coli. She is now on ertapenem. 07/10: Her urine culture is growing E coli, sensitive to both piperacillin and ertapenem. No mention of ESBL this time. She will need a full 10 day course of IV antibiotics. This can be completed outside of the hospital. She is feeling somewhat better so is likely to be able to go soon. Blood sugar ranging 200-303. 07/11: A PICC line was placed today. She will be receiving a physical therapy evaluation today and likely discharge to the [facility] facility in 1-2 days pending [facility] approval. 07/12: Insurance approval for IV antibiotic treatment at fci facility is pending. No new issues. 07/13: Blood sugars range from 75 up to 334. She is now wearing a left-sided AFO for post stroke foot drop. She is requiring 2 person assist for transfers which is her baseline. 07/14: No issues overnight agreeable to transfer to fci Review of systems: No fever or chills rigors overnight No chest pain palpitations shortness for breath No nausea vomiting diarrhea No new paresthesia or paresis Physical examination: Alert and oriented eating breakfast No labored respiration Extremities no cyanosis PICC line in good appearance Urine culture: 1. Escherichia coli M.I.C. RX --------- --- * Amoxicillin/Clavulanate 4 S * Ampicillin >=32 R * Cefazolin >=32 R * Cefepime R * Ceftriaxone >=64 R * Ciprofloxacin >=4 R * Ertapenem <=0.12 S * Gentamicin <=1 S * Levofloxacin >=8 R * Meropenem <=0.25 S * Nitrofurantoin <=16 S * Tetracycline >=16 R * Trimethoprim/Sulfamethoxazole >=320 R * Piperacillin/Tazobactam <=4 S Assessment and plan Acute Complicated Lt pyelonephritis - Previous UC grew ESBL - current UC is E. coli, sensitive to ertapenem and piperacillin, no mention of ESBL. - not septic - ertapenem IV for 10 days, which can be completed at SNF(07/17). - PT eval confirms that she is at her baseline of 2 person assist for transfers Kidney stones - follows with urology, had prior stents - risk for recurrent infections - Rt kidney non-obstructive stone DM - SS, CCD CAD / HTN - metoprolol - Hx of stent, w/o angina Hx of Rt MCA CVA / Lt hemiparesis - supportive care - using electric scooter at [facility] Constipation - bowel care DVT prophylaxis - Lovenox Disposition: Discharge 08/24 07/14 to [facility]ci facility for completion of 10 day course of IV ertapenem (last day 07/17), as [facility] not able to provide this treatment. 35 minutes were involved in the evaluation of this patient including direct patient [id number] evaluation physical examination review of records review of medications objective laboratory findings and discussion with care management team Discharge Providers Provider Date of admission: 07/10/25 10:17 Discharge Date: 07/14/25 Primary care physician: Sid Tonwsend MD Consults: 07/11/25 11:31 Consult to Physical Therapy Evaluate & Treat Comment: for SNF Auth Physician Instructions: Evaluate and Treat Discharge provider: Kyle Torres MD Exam Vital Signs (past 8 hours): Fraction of Inspired Oxygen 21 SaO2/FiO2 Ratio 466 Oxygen Delivery Method Room Air Oxygen Flow Rate 0 Objective Labs 07/14/25 08:30 07/14/25 08:30 Labs: Laboratory Results - last 24 hr 07/13/25 07/13/25 07/13/25 11:02 16:11 20:19 POC Whole Bld Glucose 132 H 188 H 183 H 07/14/25 07:38 POC Whole Bld Glucose 142 H PFSH Medical History (Updated 07/08/25 @ 20:33 by Jefe Campbell MD) CAD (coronary artery disease) History of stroke HTN (hypertension) Diabetes Aftercare following left shoulder joint replacement surgery Endometrial cancer Surgical History H/O heart artery stent History of robot-assisted laparoscopic hysterectomy Social History household members: caregiver and none Smoking Status: Former smoker Discharge Plan Discharge Plan Patient Disposition: SNF Transfer to: [facility] Discharge orders & Medications Prescriptions: New lidocaine 5 % Adhesive Patch,Medicated 1 patch topical BEDTIME Qty: 10 0RF insulin glargine [Lantus Solostar U-100 Insulin] 100 unit/mL (3 mL) Insulin Pen 30 unit SUBCUT BEDTIME Qty: 30 0RF insulin lispro [Admelog U-100 Insulin lispro] 100 unit/mL Solution 8 unit SUBCUT AC Qty: 20 0RF insulin lispro [Admelog U-100 Insulin lispro] 100 unit/mL Solution 0 unit SUBCUT ACHS Qty: 20 0RF ertapenem 1 gram Recon Soln 1 gm IV Q24H Qty: 3 0RF bisacodyl 10 mg Suppository 10 mg WA DAILY PRN (Reason: Constipation) Qty: 10 0RF polyethylene glycol 3350 [Gavilax] 17 gram Powder In Packet 17 gm PO DAILY PRN (Reason: constipation) Qty: 10 0RF acetaminophen 325 mg Tablet 1,000 mg PO Q6H PRN (Reason: Fever/Mild Pain (1-3)) Qty: 2 2RF Continued atorvastatin 40 mg tablet 40 mg PO DAILY albuterol sulfate 90 mcg/actuation HFA aerosol inhaler 2 puff inhalation Q4H PRN (Reason: shortness of breath or wheezing) fluticasone furoate-vilanterol [Breo Ellipta] 100-25 mcg/dose blister with device 2 inh inhalation Q24H clopidogrel 75 mg tablet 75 mg PO DAILY albuterol sulfate 90 mcg/actuation HFA aerosol inhaler 1 puff inhalation Q4H PRN (Reason: shortness of breath or wheezing) lidocaine 5 % adhesive patch,medicated 1 patch topical Q24H PRN (Reason: pain, moderate) melatonin 10 mg capsule 10 mg PO BEDTIME montelukast 10 mg tablet 10 mg PO DAILY nystatin 100,000 unit/gram powder 1 applic topical Q8H PRN (Reason: rash) omeprazole 40 mg capsule,delayed release(DR/EC) 40 mg PO DAILY ondansetron HCl 4 mg tablet 4 mg PO Q8H PRN (Reason: nausea and vomiting) ropinirole 3 mg tablet 3 mg PO ONCE PM tramadol 50 mg tablet 50 mg PO Q6H PRN (Reason: pain) Qty: 20 0RF pregabalin 50 mg capsule 50 mg PO 3XD Qty: 12 0RF ropinirole 0.25 mg tablet 0.25 mg PO DAILY metoprolol succinate 25 mg tablet extended release 24 hr 25 mg PO DAILY Discontinued fosfomycin tromethamine 3 gram packet 1 packet PO Q3D pregabalin 25 mg capsule 25 mg PO DAILY Follow up/Referrals: Sid Townsend MD [Primary Care Provider, Internal Medicine] Diet/Activity/Treatments Diet: Carb-consistent/Diabetic Liquid consistency: Normal/Thin Food texture: Regular [facility] Reason for rehabilitation: Recovery r/t decondition Rehab type: Physical therapy and Occupational therapy Visit Report/Discharge Packet Stand Alone Forms: Patient Portal/API Discharge Data Primary Care Provider: Sid Townsend
[2025-07-14] MEDS: INSULIN LISPRO 100 UNIT/ML 3ML VIAL SUBCUT (08:45)
[2025-07-14] MEDS: INSULIN LISPRO 100 UNIT/ML 3ML VIAL 8 UNIT SUBCUT (08:45)
[2025-07-14 08:58] LABS: Add Manual Diff / Slide Review NO; Hematocrit 34.8 % (36-46); Hemoglobin 11.1 g/dL (12.0-16.0); Lymphocytes Absolute Auto 1100 /uL (1100-4500); Mean Corpuscular HGB Conc 32.0 % (30-36); Mean Corpuscular Hemoglobin 25.1 PG (26-34); Mean Corpuscular Volume 78.4 fL (80-100); Platelet Count 228 X10^3/uL (150-400)
[2025-07-14 09:09] LABS: Blood Urea Nitrogen 18 mg/dL (7-17); Calcium 8.4 mg/dL (8.4-10.2); Carbon Dioxide 25 mmol/L (22-32); Chloride 101 mmol/L (98-107); Estimated Glomerular Filt Rate > 60 mL/min (>60); Glucose 161 mg/dL (70-99); HEMOLYSIS 28 (0-50); Potassium 3.9 mmol/L (3.4-5.1); Sodium 134 mmol/L (137-145)
[2025-07-14] MEDS: MONTELUKAST 10 MG TABLET PO (10:31)
[2025-07-14] MEDS: ENOXAPARIN 40 MG/0.4 ML SYRINGE SUBCUT (10:31)
[2025-07-14] MEDS: PREGABALIN 25 MG CAPSULE 50 MG PO (10:31)
[2025-07-14] MEDS: METOPROLOL ER 25 MG TABLET 12.5 MG PO (10:31)
[2025-07-14] MEDS: ATORVASTATIN 20 MG TABLET 40 MG PO (10:32)
[2025-07-14] MEDS: CLOPIDOGREL 75 MG TABLET PO (10:32)
[2025-07-14] MEDS: PANTOPRAZOLE DR 40 MG TABLET PO (10:34)
--- NOTE | 2025-07-14 10:45 | CM.DPC ---
DCP Discharge SNF Per MD, pt is medically stable to d/c to SNF today and discharge completed. [facility] confirmed [facility] still accept today since they obtained auth last night and can transport around 1130. [facility]ALO secure emailed dc summary, PASRR, signed med list, scripts, and [facility] to [facility] to [facility]. LALO updated bacteriologist soil, TRUCK DRIVER TEAMSTER, and RN and provided number to call report. RN aware that pt to d/c with PICC as she will have a couple more days IV Abx at SNF. SAVI Tijerina
--- NOTE | 2025-07-14 12:34 | PC.NURSE ---
Patient is A&XO4, VSS, afebrile on RA. She denies back or flank pain. She reports pain to her arms this morning and knee, which she states is well controlled with scheduled lyrica and PRN tylenol. She is cleared medically for discharge this morning and arranged transport to [facility] at 1130 a.m. She is dressed, L foot brace and shoes put on and she is assisted to her W/CH. Patient is transported in her own electric w/ch with facility designee at noon. Report called to ODALIS Hunter.
== END 2025-07-14 12:00 | DRG 690 ==
LOC: ED 19:58 → AC 21:00
PROVIDERS: Family Medicine; Admitting Provider Internal Medicine; Emergency Provider Internal Medicine; PCP Internal Medicine; Referring Provider Family Medicine; Visit Provider Internal Medicine
DX: N10 Acute pyelonephritis (principal); I69.354 Hemiplegia and hemiparesis following cerebral infarction affecting left non-dominant side; Z16.11 Resistance to penicillins; Z16.24 Resistance to multiple antibiotics; N20.0 Calculus of kidney; I25.10 Atherosclerotic heart disease of native coronary artery without angina pectoris; E11.65 Type 2 diabetes mellitus with hyperglycemia; I10 Essential (primary) hypertension; K59.00 Constipation, unspecified; B96.20 Unspecified Escherichia coli [E. coli] as the cause of diseases classified elsewhere; Z87.891 Personal history of nicotine dependence; Z87.440 Personal history of urinary (tract) infections; Z95.5 Presence of coronary angioplasty implant and graft
CPT/HCPCS: 36415; 36569; 36592; 74177; 80048; 80053; 81001; 82962; 83036; 85025; 87077; 87086; 87186; 94640; 96361; 96365; 96366; 96367; 96375; 97163; 97530; 99284; G0378; J0696; J1335; J1650; J1815; J2543; J7050

== ENCOUNTER 2025-08-04 14:20 | Inpatient (IN) | payer MEDICARE, MEDICAID, SELFPAY ==
[2025-07-08 22:58] VITALS: BMI 34.9
[2025-08-04] VITALS (11 sets, daily range): BP systolic 105–192; BP diastolic 51–76; PULSE 75–87; RESP 18; TEMP 36.4; O2SAT 94–97; BMI 38.0
[2025-08-04 15:12] LABS: Add Manual Diff / Slide Review NO; Hematocrit 38.7 % (36-46); Hemoglobin 12.5 g/dL (12.0-16.0); Lymphocytes Absolute Auto 1000 /uL (1100-4500); Mean Corpuscular HGB Conc 32.4 % (30-36); Mean Corpuscular Hemoglobin 25.2 PG (26-34); Mean Corpuscular Volume 77.6 fL (80-100); Platelet Count 307 X10^3/uL (150-400)
[2025-08-04 15:17] LABS: Alanine Aminotransferase 25 IU/L (<35); Albumin 4.0 g/dL (3.5-5.0); Albumin Globulin Ratio 1.0 (1.0-2.8); Alkaline Phosphatase 173 U/L (38-126); Blood Urea Nitrogen 18 mg/dL (7-17); Calcium 9.0 mg/dL (8.4-10.2); Carbon Dioxide 24 mmol/L (22-32); Chloride 103 mmol/L (98-107); Estimated Glomerular Filt Rate > 60 mL/min (>60); Globulin 4.1 g/dL (1.7-4.1); Glucose 213 mg/dL (70-99); HEMOLYSIS < 15 (0-50); Lipase 54 U/L (23-300); Potassium 4.0 mmol/L (3.4-5.1); Sodium 139 mmol/L (137-145); Total Protein 8.1 g/dL (6.3-8.2)
[2025-08-04 15:18] LABS: Lactate (Lactic Acid) 2.0 mmol/L (0.7-2.1)
--- NOTE | 2025-08-04 16:23 | DI.CT.S_ITS ---
PROCEDURE: CT ABDOMEN PELVIS W CON INDICATIONS: abd pain TECHNIQUE: After the administration of intravenous contrast, axial sections acquired from the lung bases to the pubic symphysis. Coronal and sagittal reformats were performed. For radiation dose reduction, the following was used: automated exposure control, adjustment of mA and/or kV according to patient size. COMPARISON: [facility], CT, CT ABDOMEN PELVIS W CON, 07/08/2025, 17:08. FINDINGS: Image quality: Diagnostic. Lower Chest: No significant findings. ABDOMEN: Liver: No solid mass. Gallbladder: No radiopaque gallstones or wall thickening. Biliary ducts: No biliary dilation. Pancreas: No ductal dilation. Spleen: Size is within normal limits. Adrenal Glands: No adrenal nodules. Kidneys and Ureters: Left renal atrophy with severe hydronephrosis. Dilation of the proximal left ureter with extensive fat stranding along the left kidney, left renal pelvis and left ureter and urothelial enhancement along the ureter and collecting system. Abrupt transition at the pelvic brim and left ureteral caliber, but no obstructing calculus identified. Unchanged punctate right renal calculi. No right hydronephrosis. Right ureter is decompressed. Stomach and Bowel: Normal colonic caliber, without significant wall thickening. Normal appendix. Peritoneum: No abnormal intraperitoneal fluid. No free air. Ventral Wall: No significant ventral hernia. Abdominal Nodes: Abnormally enlarged retroperitoneal nodes along the aorta with the largest measuring 1.3 centimeter in short axis. Vessels: Aorta and inferior vena cava are normal in size. Scattered aortic atherosclerotic calcified plaques. PELVIS: Pelvic Organs: Hysterectomy. Bladder: Bladder decompressed with wall thickening and perivesicular fat stranding Pelvic Nodes: No enlarged lymph nodes. Miscellaneous: No inguinal hernias are seen. Bones: No aggressive osseous abnormality. IMPRESSION: Persistent inflammation of the left collecting system with severe left hydronephrosis and renal atrophy. There is also bladder wall inflammation together suggestive of infection. Etiology of obstruction is not obvious. There is focal tapering of the distal left ureter without visible obstructing stone. Retroperitoneal adenopathy which may be reactive Dictated by: Alexander Wharton M.D. on 08/04/2025 at 18:15 Approved by: Alexander Wharton M.D. on 08/04/2025 at 18:24
[2025-08-04] MEDS: ERTAPENEM 1 GM in SODIUM CHLORIDE 0.9% 100 ML IV (17:43)
--- NOTE | 2025-08-04 17:43 | ED.FEMALEGU ---
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 Patient complains of severe dysuria. Patient endorses nausea. No fever, chills, chest pain, shortness of breath, vomiting, lightheadedness, dizziness, syncope. Patient does endorse some suprapubic discomfort. Patient was hospitalized on 07/08/2025 for IV antibiotics for a UTI and discharged on 06/2025. Patient was discharged with a PICC line to a SNF for continued IV antibiotics. Patient endorses that her symptoms did improve with the antibiotics and she felt better. How and Proteus mirabilis. Patient is also complaining of constipation, last stool was earlier today. Patient states that her abdomen feels hard and has some generalized discomfort. Related Data Home Medications ?Medication ?Instructions ?Recorded ?Confirmed metoprolol succinate 25 mg 25 mg PO DAILY 05/02/25 08/04/25 tablet,extended release 24 hr ropinirole 0.25 mg tablet 0.25 mg PO DAILY 05/02/25 08/04/25 albuterol sulfate 90 mcg/actuation 1 puff inhalation Q4H PRN 07/08/25 08/04/25 aerosol inhaler shortness of breath or wheezing albuterol sulfate 90 mcg/actuation 2 puff inhalation Q4H PRN 07/08/25 08/04/25 aerosol inhaler shortness of breath or wheezing atorvastatin 40 mg tablet 40 mg PO DAILY 07/08/25 08/04/25 clopidogrel 75 mg tablet 75 mg PO DAILY 07/08/25 08/04/25 fluticasone furoate 100 2 inh inhalation Q24H 07/08/25 08/04/25 mcg-vilanterol 25 mcg/dose inhalation powder (Breo Ellipta) lidocaine 5 % topical patch 1 patch topical Q24H PRN pain, 07/08/25 08/04/25 moderate melatonin 10 mg capsule 10 mg PO BEDTIME 07/08/25 08/04/25 montelukast 10 mg tablet 10 mg PO DAILY 07/08/25 08/04/25 nystatin 100,000 unit/gram topical 1 applic topical Q8H PRN rash 07/08/25 08/04/25 powder omeprazole 40 mg capsule,delayed 40 mg PO DAILY 07/08/25 08/04/25 release ondansetron HCl 4 mg tablet 4 mg PO Q8H PRN nausea and vomiting 07/08/25 08/04/25 ropinirole 3 mg tablet 3 mg PO ONCE PM 07/08/25 08/04/25 methenamine hippurate 1 gram tablet g PO 08/04/25 Previous Rx's ?Medication ?Instructions ?Recorded acetaminophen 325 mg tablet 1,000 mg (3.0769 x 325 mg) PO Q6H 07/14/25 PRN Fever/Mild Pain (1-3) #2 tabs bisacodyl 10 mg rectal suppository 10 mg AK DAILY PRN Constipation 07/14/25 #10 ea ertapenem 1 gram solution for 1 gm IV Q24H #3 ea 07/14/25 injection insulin glargine 100 unit/mL (3 30 unit (0.3 mL) SUBCUT BEDTIME 07/14/25 mL) subcutaneous pen (Lantus #30 mL Solostar U-100 Insulin) insulin lispro 100 unit/mL 0 unit (0 mL) SUBCUT ACHS #20 mL 07/14/25 subcutaneous solution (Admelog U-100 Insulin lispro) insulin lispro 100 unit/mL 8 unit (0.08 mL) SUBCUT AC #20 mL 07/14/25 subcutaneous solution (Admelog U-100 Insulin lispro) lidocaine 5 % topical patch 1 patch topical BEDTIME #10 ea 07/14/25 polyethylene glycol 3350 17 gram 17 gm PO DAILY PRN constipation 07/14/25 oral powder packet (Gavilax) #10 ea pregabalin 50 mg capsule 50 mg PO 3XD #12 caps 07/14/25 tramadol 50 mg tablet 50 mg PO Q6H PRN pain #20 tabs 07/14/25 Allergies Allergy/AdvReac Type Severity Reaction Status Date / Time codeine Allergy Itching Verified 08/04/25 14:29 Review of Systems <Joseph Crabtree PA-C - Last Filed: 08/04/25 19:27> Constitutional Constitutional: Denies chills, Denies fatigue, Denies fever(s), Denies frequent falls, Denies lethargy and Denies weakness Eyes Eyes: Denies change in vision, Denies eye discharge, Denies irritation and Denies loss of vision ENT Ears, Nose, Mouth, and Throat: Denies change in voice, Denies dizziness, Denies neck pain, Denies sore throat and Denies throat swelling Cardiovascular Cardiovascular: Denies chest pain, Denies irregular heart rhythm, Denies lightheadedness, Denies palpitations, Denies dyspnea, Denies dyspnea on exertion and Denies orthopnea Respiratory Respiratory: Denies cough, Denies dyspnea, Denies dyspnea on exertion and Denies wheezing Gastrointestinal Gastrointestinal: Reports abdominal pain, Denies change in bowel habits, Reports constipation, Denies diarrhea, Reports nausea and Denies vomiting Genitourinary Genitourinary: Reports dysuria Musculoskeletal Musculoskeletal: Denies neck pain and Denies numbness Integumentary/Breasts Skin/Breast: Denies pruritus, Denies erythema, Denies rash and Denies wounds Neurologic Neurologic: Denies behavioral changes, Denies confusion, Denies dizziness, Denies frequent falls, Denies loss of vision, Denies numbness and Denies weakness Psychiatric Psychiatric: Denies anxiety, Denies behavioral changes, Denies confusion, Denies depression, Denies homicidal ideation and Denies suicidal ideation Endocrine Endocrine: Denies fatigue, Denies flushing and Denies palpitations Hematologic/Lymphatic Hematologic/Lymphatic: Denies easy bruising Allergic/Immunologic Allergic/Immunologic: Denies urticaria, Denies throat swelling and Denies wheezing Patient History <Joseph Crabtree PA-C - Last Filed: 08/04/25 19:27> Medical History CAD (coronary artery disease) History of stroke HTN (hypertension) Diabetes Aftercare following left shoulder joint replacement surgery Endometrial cancer Surgical History H/O heart artery stent History of robot-assisted laparoscopic hysterectomy Exam <Joseph Crabtree PA-C - Last Filed: 08/04/25 19:27> Narrative Exam Narrative: Const General:?cooperative, healthy appearing and comfortable HENNH Head:?normal to inspection Ears:?hearing grossly normal bilaterally Nose:?external nose normal Face and sinus:?normal facial exam and sinuses nontender Mouth:?oral mucosae normal Throat:?posterior oropharynx normal Eyes General:?appearance normal, both eyes and all related structures Neck Neck:?normal visual inspection and no lymphadenopathy noted Resp Effort & Inspection:?normal respiratory effort Auscultation:?clear to auscultation bilaterally Cardio Rate:?regular rate Rhythm:?regular rhythm GI Abdomen is hard, distended, mildly tender to palpation. Neuro General:?patient alert, patient awake and patient oriented x3 Initial Vital Signs Initial Vital Signs: Vital Signs Temperature 97.6 F 08/04/25 14:23 Pulse Rate 87 08/04/25 14:23 Respiratory Rate 18 08/04/25 14:23 Blood Pressure 105/51 L 08/04/25 14:23 Pulse Oximetry 95 08/04/25 14:23 Oxygen Delivery Method Room Air 08/04/25 14:23 <Mackenzie Zheng MD - Last Filed: 08/05/25 00:27> Initial Vital Signs Initial Vital Signs: Vital Signs Temperature 97.6 F 08/04/25 14:23 Pulse Rate 87 08/04/25 14:23 Respiratory Rate 18 08/04/25 14:23 Blood Pressure 105/51 L 08/04/25 14:23 Pulse Oximetry 95 08/04/25 14:23 Oxygen Delivery Method Room Air 08/04/25 14:23 Course <Joseph Crabtree PA-C - Last Filed: 08/04/25 19:27> Orders Ordered: ED Orders 08/04/25 16:23 CT abdomen pelvis w con Stat 08/04/25 17:12 Blood Culture Stat 08/04/25 19:24 Consult to Urology Stat Acetaminophen (Acetaminophen 325 Mg Tablet) 650 mg PO Q6H PRN PRN Reason: Fever/Mild Pain (1-3) Hydrocodone Bitart/Acetaminophen (Hydrocodone/Acet 5/325 Tablet) 1 tab PO Q4H PRN PRN Reason: Pain, Moderate (4-6) Albuterol (Albuterol 2.5 Mg/3 Ml Neb (Adult)) 2.5 mg INH Q4H PRN PRN Reason: Shortness Of Breath Or Wheezing Atorvastatin Calcium (Atorvastatin 20 Mg Tablet) 40 mg PO DAILY [facility] Clopidogrel Bisulfate (Clopidogrel 75 Mg Tablet) 75 mg PO DAILY [facility] Heparin Sodium (Porcine) (Heparin 5,000 Unit/Ml Vial) 5,000 unit SUBCUT BID [facility] Last Admin: 08/04/25 23:43 Dose: 5,000 unit Documented By: JEIMY Sodium Chloride (Normal Saline 0.9%) 1,000 mls @ 100 mls/hr IV CONT [facility] Last Admin: 08/04/25 20:54 Dose: 100 mls/hr Documented By: AT Ertapenem 1 gm/ Sodium (Chloride) 100 mls @ 200 mls/hr IV Q24H [facility] Dextrose (D10w) 100 mls @ 999 mls/hr IV PRN PRN PRN Reason: Hypoglycemia Insulin Glargine (Insulin Glargine 100 Unit/Ml 3ml Pen) 30 unit SUBCUT BEDTIME [facility] Last Admin: 08/04/25 23:42 Dose: 30 unit Documented By: JEIMY Co-signed By: JEANA Insulin Human Lispro (Insulin Lispro 100 Unit/Ml 3ml Vial) 0 unit SUBCUT ACHS [facility]; Protocol Melatonin (Melatonin 3 Mg Tablet) 9 mg PO BEDTIME [facility] Last Admin: 08/04/25 23:42 Dose: 9 mg Documented By: JEIMY Metoprolol Succinate (Metoprolol Er 25 Mg Tablet) 25 mg PO DAILY [facility] Montelukast Sodium (Montelukast 10 Mg Tablet) 10 mg PO DAILY [facility] Naloxone HCl (Naloxone 0.4 Mg/Ml Vial) 0.2 mg IV Q2MIN PRN PRN Reason: Opiate Reversal Ondansetron HCl (Ondansetron 4 Mg/2 Ml Inj) 4 mg IV Q8HR PRN PRN Reason: Nausea And Vomiting Pantoprazole Sodium (Pantoprazole Dr 40 Mg Tablet) 40 mg PO DAILY [facility] Pregabalin (Pregabalin 25 Mg Capsule) 50 mg PO TID [facility] Last Admin: 08/04/25 23:42 Dose: 50 mg Documented By: JEIMY Ropinirole HCl (Ropinirole 0.25 Mg Tablet) 0.25 mg PO DAILY [facility] Tramadol HCl (Tramadol 50 Mg Tablet) 50 mg PO Q6H PRN PRN Reason: pain Last Admin: 08/04/25 23:42 Dose: 50 mg Documented By: JEIMY Discontinued Medications Albuterol (Albuterol Hfa Mdi 60 Puff/8 Gm Inhaler (Covid Only)) 1 puff INH Q4H PRN PRN Reason: Shortness Of Breath Or Wheezing Ertapenem (Ertapenem 1 Gm Vial) 1 gm IM NOW ONE Stop: 08/04/25 16:36 Last Admin: 08/04/25 17:42 Dose: Not Given Documented By: RB Ertapenem 1 gm/ Sodium (Chloride) 100 mls @ 200 mls/hr IV NOW ONE Stop: 08/04/25 17:36 Last Infusion: 08/04/25 18:34 Dose: Infused Documented By: Admin: 08/04/25 17:43 Dose: 200 mls/hr Documented By: BERKLEY Vital Signs Vital signs: Vital Signs - 8 hr 08/04/25 18:04 08/04/25 18:05 08/04/25 18:05 Pulse Rate 75 79 Blood Pressure 147/67 H Pulse Oximetry 94 95 08/04/25 18:30 08/04/25 18:31 08/04/25 18:31 Pulse Rate 78 77 Blood Pressure 154/67 H Pulse Oximetry 96 96 08/04/25 19:00 Pulse Rate 78 Blood Pressure Pulse Oximetry 96 <Mackenzie Zheng MD - Last Filed: 08/05/25 00:27> Orders Ordered: ED Orders 08/04/25 16:23 CT abdomen pelvis w con Stat 08/04/25 17:12 Blood Culture Stat 08/04/25 19:24 Consult to Urology Stat Acetaminophen (Acetaminophen 325 Mg Tablet) 650 mg PO Q6H PRN PRN Reason: Fever/Mild Pain (1-3) Hydrocodone Bitart/Acetaminophen (Hydrocodone/Acet 5/325 Tablet) 1 tab PO Q4H PRN PRN Reason: Pain, Moderate (4-6) Albuterol (Albuterol 2.5 Mg/3 Ml Neb (Adult)) 2.5 mg INH Q4H PRN PRN Reason: Shortness Of Breath Or Wheezing Atorvastatin Calcium (Atorvastatin 20 Mg Tablet) 40 mg PO DAILY [facility] Clopidogrel Bisulfate (Clopidogrel 75 Mg Tablet) 75 mg PO DAILY [facility] Heparin Sodium (Porcine) (Heparin 5,000 Unit/Ml Vial) 5,000 unit SUBCUT BID [facility] Last Admin: 08/04/25 23:43 Dose: 5,000 unit Documented By: AGW Sodium Chloride (Normal Saline 0.9%) 1,000 mls @ 100 mls/hr IV CONT [facility] Last Admin: 08/04/25 20:54 Dose: 100 mls/hr Documented By: AT Ertapenem 1 gm/ Sodium (Chloride) 100 mls @ 200 mls/hr IV Q24H [facility] Dextrose (D10w) 100 mls @ 999 mls/hr IV PRN PRN PRN Reason: Hypoglycemia Insulin Glargine (Insulin Glargine 100 Unit/Ml 3ml Pen) 30 unit SUBCUT BEDTIME [facility] Last Admin: 08/04/25 23:42 Dose: 30 unit Documented By: AGW Co-signed By: LM Insulin Human Lispro (Insulin Lispro 100 Unit/Ml 3ml Vial) 0 unit SUBCUT ACHS [facility]; Protocol Melatonin (Melatonin 3 Mg Tablet) 9 mg PO BEDTIME [facility] Last Admin: 08/04/25 23:42 Dose: 9 mg Documented By: DARRELW Metoprolol Succinate (Metoprolol Er 25 Mg Tablet) 25 mg PO DAILY [facility] Montelukast Sodium (Montelukast 10 Mg Tablet) 10 mg PO DAILY [facility] Naloxone HCl (Naloxone 0.4 Mg/Ml Vial) 0.2 mg IV Q2MIN PRN PRN Reason: Opiate Reversal Ondansetron HCl (Ondansetron 4 Mg/2 Ml Inj) 4 mg IV Q8HR PRN PRN Reason: Nausea And Vomiting Pantoprazole Sodium (Pantoprazole Dr 40 Mg Tablet) 40 mg PO DAILY [facility] Pregabalin (Pregabalin 25 Mg Capsule) 50 mg PO TID [facility] Last Admin: 08/04/25 23:42 Dose: 50 mg Documented By: JEIMY Ropinirole HCl (Ropinirole 0.25 Mg Tablet) 0.25 mg PO DAILY [facility] Tramadol HCl (Tramadol 50 Mg Tablet) 50 mg PO Q6H PRN PRN Reason: pain Last Admin: 08/04/25 23:42 Dose: 50 mg Documented By: DARRELW Discontinued Medications Albuterol (Albuterol Hfa Mdi 60 Puff/8 Gm Inhaler (Covid Only)) 1 puff INH Q4H PRN PRN Reason: Shortness Of Breath Or Wheezing Ertapenem (Ertapenem 1 Gm Vial) 1 gm IM NOW ONE Stop: 08/04/25 16:36 Last Admin: 08/04/25 17:42 Dose: Not Given Documented By: RB Ertapenem 1 gm/ Sodium (Chloride) 100 mls @ 200 mls/hr IV NOW ONE Stop: 08/04/25 17:36 Last Infusion: 08/04/25 18:34 Dose: Infused Documented By: Admin: 08/04/25 17:43 Dose: 200 mls/hr Documented By: BERKLEY Vital Signs Vital signs: Vital Signs - 8 hr 08/04/25 18:04 08/04/25 18:05 08/04/25 18:05 Pulse Rate 75 79 Blood Pressure 147/67 H Pulse Oximetry 94 95 08/04/25 18:30 08/04/25 18:31 08/04/25 18:31 Pulse Rate 78 77 Blood Pressure 154/67 H Pulse Oximetry 96 96 08/04/25 19:00 Pulse Rate 78 Blood Pressure Pulse Oximetry 96 MDM - Female Genitourinary <Joseph Crabtree PA-C - Last Filed: 08/04/25 19:27> Lab Data 08/04/25 14:45 08/04/25 14:45 Labs: Lab Results 08/04/25 Range/Units 14:45 WBC 6.5 (4.5-11.0) X10^3/uL RBC 4.98 (4.0-5.2) X10^6/uL Hgb 12.5 (12.0-16.0) g/dL Hct 38.7 (36-46) % MCV 77.6 L (80-100) fL MCH 25.2 L (26-34) PG MCHC 32.4 (30-36) % RDW 16.4 H (11.6-14.8) % Plt Count 307 (150-400) X10^3/uL Neut % (Auto) 74.8 (50-75) % Lymph % (Auto) 15.5 L (25-40) % Scott % (Auto) 5.1 (3-14) % Eos % (Auto) 4.1 H (2-4) % Baso % (Auto) 0.5 (0-2) % Neut # (Auto) 4800 (2811-5925) /uL Lymph # (Auto) 1000 L (3971-4163) /uL Scott # (Auto) 300 (0-900) /uL Eos # (Auto) 300 (0-450) /uL Baso # (Auto) 0 (0-100) /uL Sodium 139 (137-145) mmol/L Potassium 4.0 (3.4-5.1) mmol/L Chloride 103 (98-107) mmol/L Carbon Dioxide 24 (22-32) mmol/L BUN 18 H (7-17) mg/dL Creatinine 0.83 (0.52-1.04) mg/dL Estimated GFR > 60 (>60) mL/min BUN/Creatinine Ratio 21.7 (6-22) Glucose 213 H (70-99) mg/dL Lactate 2.0 (0.7-2.1) mmol/L Calcium 9.0 (8.4-10.2) mg/dL Total Bilirubin 0.3 (0.2-1.3) mg/dL AST 23 (14-36) IU/L ALT 25 (<35) IU/L Alkaline Phosphatase 173 H (38-126) U/L Total Protein 8.1 (6.3-8.2) g/dL Albumin 4.0 (3.5-5.0) g/dL Globulin 4.1 (1.7-4.1) g/dL Albumin/Globulin Ratio 1.0 (1.0-2.8) Lipase 54 (23-300) U/L MDM Narrative Medical decision making narrative: 74-year-old female with past medical history CVA, hypertension, 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 Concern for UTI versus pyelonephritis versus constipation versus other intra-abdominal pathology versus other. Will obtain labs, blood cultures, CT abdomen pelvis. Will start IV ertapenem. Labs significant for an elevated glucose of 213. Creatinine 0.83, GFR greater than 60. All other labs unremarkable. CT abdomen pelvis shows persistent inflammation of the left collecting system with severe left hydronephrosis and renal atrophy. There is also bladder wall inflammation together suggestive of infection. Etiology of obstruction is not obvious. There is focal tapering of the distal left ureter without visible obstructing stone. Retroperitoneal adenopathy which may be reactive. Blood cultures obtained, antibiotics started. Dr. Arora from Urology was consulted, he does not anticipate any immediate procedural urologic interventions. He will consult as an an as-needed basis and see the patient tomorrow. Will admit to hospitalist for continued IV antibiotics. Consulted hospitalist Dr. Quinten Beltran who graciously accepts patient for admission. Discussed findings and plan with patient. She is agreeable to the plan. Medical records reviewed: Yes <Mackenzie Zheng MD - Last Filed: 08/05/25 00:27> Lab Data Labs: Lab Results 08/04/25 Range/Units 14:45 WBC 6.5 (4.5-11.0) X10^3/uL RBC 4.98 (4.0-5.2) X10^6/uL Hgb 12.5 (12.0-16.0) g/dL Hct 38.7 (36-46) % MCV 77.6 L (80-100) fL MCH 25.2 L (26-34) PG MCHC 32.4 (30-36) % RDW 16.4 H (11.6-14.8) % Plt Count 307 (150-400) X10^3/uL Neut % (Auto) 74.8 (50-75) % Lymph % (Auto) 15.5 L (25-40) % Scott % (Auto) 5.1 (3-14) % Eos % (Auto) 4.1 H (2-4) % Baso % (Auto) 0.5 (0-2) % Neut # (Auto) 4800 (8411-5691) /uL Lymph # (Auto) 1000 L (0446-8507) /uL Scott # (Auto) 300 (0-900) /uL Eos # (Auto) 300 (0-450) /uL Baso # (Auto) 0 (0-100) /uL Sodium 139 (137-145) mmol/L Potassium 4.0 (3.4-5.1) mmol/L Chloride 103 (98-107) mmol/L Carbon Dioxide 24 (22-32) mmol/L BUN 18 H (7-17) mg/dL Creatinine 0.83 (0.52-1.04) mg/dL Estimated GFR > 60 (>60) mL/min BUN/Creatinine Ratio 21.7 (6-22) Glucose 213 H (70-99) mg/dL Lactate 2.0 (0.7-2.1) mmol/L Calcium 9.0 (8.4-10.2) mg/dL Total Bilirubin 0.3 (0.2-1.3) mg/dL AST 23 (14-36) IU/L ALT 25 (<35) IU/L Alkaline Phosphatase 173 H (38-126) U/L Total Protein 8.1 (6.3-8.2) g/dL Albumin 4.0 (3.5-5.0) g/dL Globulin 4.1 (1.7-4.1) g/dL Albumin/Globulin Ratio 1.0 (1.0-2.8) Lipase 54 (23-300) U/L Discharge Plan Departure Patient Disposition: Admitted As Inpatient Clinical Impression: Acute pyelonephritis Admit Date/Time: 08/04/25 19:24 Admit Provider: Quinten Elias ED Sign-out <Mackenzie Zheng MD - Last Filed: 08/05/25 00:27> Cosign ED Attending Cosignature Attestation: I was immediately available in the department for consultation throughout this patient's visit. Mackenzie Zheng MD
[2025-08-04] MEDS: SODIUM CHLORIDE 0.9% 1,000 ML 100 ML IV (20:54)
[2025-08-04] MEDS: PREGABALIN 25 MG CAPSULE 50 MG PO (23:42)
[2025-08-04] MEDS: INSULIN GLARGINE 100 UNIT/ML 3ML PEN 30 UNIT SUBCUT (23:42)
[2025-08-04] MEDS: MELATONIN 3 MG TABLET 9 MG PO (23:42)
[2025-08-04] MEDS: HEPARIN 5,000 UNIT/ML VIAL 5000 UNIT SUBCUT (23:43)
[2025-08-05 06:27] LABS: Add Manual Diff / Slide Review NO; Hematocrit 33.1 % (36-46); Hemoglobin 10.8 g/dL (12.0-16.0); Lymphocytes Absolute Auto 1000 /uL (1100-4500); Mean Corpuscular HGB Conc 32.6 % (30-36); Mean Corpuscular Hemoglobin 25.1 PG (26-34); Mean Corpuscular Volume 76.8 fL (80-100); Platelet Count 268 X10^3/uL (150-400)
[2025-08-05 06:38] LABS: Blood Urea Nitrogen 18 mg/dL (7-17); Calcium 8.2 mg/dL (8.4-10.2); Carbon Dioxide 25 mmol/L (22-32); Chloride 105 mmol/L (98-107); Estimated Glomerular Filt Rate > 60 mL/min (>60); Glucose 142 mg/dL (70-99); HEMOLYSIS < 15 (0-50); Potassium 3.6 mmol/L (3.4-5.1); Sodium 139 mmol/L (137-145)
--- NOTE | 2025-08-05 07:02 | PM.HP.1 ---
History of Present Illness History of Present Illness Date Patient Seen: 08/04/25 Time Patient Seen: 20:45 Chief complaint: cont UTI, PC ref Narrative: 74-year-old female with past medical history of hypertension, CVA, with left-sided residual weakness, frequent UTIs, hypertension and asthma presents with dysuria. Per the patient's report, since yesterday, the patient has increasing dysuria, nausea and some suprapubic pain. The patient however denies any fever, chills, vomiting, diarrhea, chest pain, shortness of breath or syncope. Recently the patient was admitted discharge last week few weeks ago for UTI. In the emergency room, the patient was hemodynamically stable. Labs shows a glucose of 213 but otherwise were relatively normal with normal WBC. UA was positive for UTI. CT scan abdomen pelvis shows persistent inflammation of the left continue system with severe left hydronephrosis and renal atrophy there is also sign of cystitis there is focal tapering of his left ureter without visible obstructing stones Dr. Arora form urology consulted and recommend IV antibiotic for now he does not see any emergent urologoical procedure needed at this time. In addition, Dr. Arora will consult on the case in AM. The patient was given Ertapenem due to history of ESLB. [facility] Medical History CAD (coronary artery disease) History of stroke HTN (hypertension) Diabetes Aftercare following left shoulder joint replacement surgery Endometrial cancer Surgical History H/O heart artery stent History of robot-assisted laparoscopic hysterectomy Social History household members: none Smoking Status: Never smoker alcohol intake: current Meds Home Medications and Allergies Home Medications ?Medication ?Instructions ?Recorded ?Confirmed ?Type metoprolol succinate 25 mg 25 mg PO DAILY 05/02/25 08/04/25 History tablet,extended release 24 hr ropinirole 0.25 mg tablet 0.25 mg PO DAILY 05/02/25 08/04/25 History albuterol sulfate 90 mcg/actuation 1 puff inhalation Q4H PRN 07/08/25 08/04/25 History aerosol inhaler shortness of breath or wheezing albuterol sulfate 90 mcg/actuation 2 puff inhalation Q4H PRN 07/08/25 08/04/25 History aerosol inhaler shortness of breath or wheezing atorvastatin 40 mg tablet 40 mg PO DAILY 07/08/25 08/04/25 History clopidogrel 75 mg tablet 75 mg PO DAILY 07/08/25 08/04/25 History fluticasone furoate 100 2 inh inhalation Q24H 07/08/25 08/04/25 History mcg-vilanterol 25 mcg/dose inhalation powder (Breo Ellipta) lidocaine 5 % topical patch 1 patch topical Q24H PRN pain, 07/08/25 08/04/25 History moderate melatonin 10 mg capsule 10 mg PO BEDTIME 07/08/25 08/04/25 History montelukast 10 mg tablet 10 mg PO DAILY 07/08/25 08/04/25 History nystatin 100,000 unit/gram topical 1 applic topical Q8H PRN rash 07/08/25 08/04/25 History powder omeprazole 40 mg capsule,delayed 40 mg PO DAILY 07/08/25 08/04/25 History release ondansetron HCl 4 mg tablet 4 mg PO Q8H PRN nausea and vomiting 07/08/25 08/04/25 History ropinirole 3 mg tablet 3 mg PO ONCE PM 07/08/25 08/04/25 History acetaminophen 325 mg tablet 1,000 mg (3.0769 x 325 mg) PO Q6H 07/14/25 08/04/25 Rx PRN Fever/Mild Pain (1-3) #2 tabs bisacodyl 10 mg rectal suppository 10 mg [place] DAILY PRN Constipation 07/14/25 08/04/25 Rx #10 ea ertapenem 1 gram solution for 1 gm IV Q24H #3 ea 07/14/25 08/04/25 Rx injection insulin glargine 100 unit/mL (3 30 unit (0.3 mL) SUBCUT BEDTIME 07/14/25 08/04/25 Rx mL) subcutaneous pen (Lantus #30 mL Solostar U-100 Insulin) insulin lispro 100 unit/mL 0 unit (0 mL) SUBCUT ACHS #20 mL 07/14/25 08/04/25 Rx subcutaneous solution (Admelog U-100 Insulin lispro) insulin lispro 100 unit/mL 8 unit (0.08 mL) SUBCUT AC #20 mL 07/14/25 08/04/25 Rx subcutaneous solution (Admelog U-100 Insulin lispro) lidocaine 5 % topical patch 1 patch topical BEDTIME #10 ea 07/14/25 08/04/25 Rx polyethylene glycol 3350 17 gram 17 gm PO DAILY PRN constipation 07/14/25 08/04/25 Rx oral powder packet (Gavilax) #10 ea pregabalin 50 mg capsule 50 mg PO 3XD #12 caps 07/14/25 08/04/25 Rx tramadol 50 mg tablet 50 mg PO Q6H PRN pain #20 tabs 07/14/25 08/04/25 Rx methenamine hippurate 1 gram tablet g PO 08/04/25 History Allergies Allergy/AdvReac Type Severity Reaction Status Date / Time codeine Allergy Itching Verified 08/04/25 14:29 Review of Systems Review of Systems ROS: Yes All systems reviewed with the patient and are negative except as otherwise documented Exam Vital Signs (past 8 hours): Oxygen Delivery Method Room Air Oxygen Flow Rate 0 Narrative Exam Narrative: Physical Exam: GENERAL: The patient is not in any acute distressed. Awake and alert. HEENT: Nonicteric sclerae, PERRLA, EOMI. Oropharynx clear. Moist mucous membranes. Conjunctivae appear well perfused. HEART: Regular rate and rhythm without murmurs. No lower extremities edema. LUNGS: Clear to auscultation bilaterally. No wheezing, crackles or rhonchi ABDOMEN: Soft, positive bowel sounds, nontender. SKIN: No rash, no excessive bruising, petechiae, or purpura. NEUROLOGIC: AxO x 3. Cranial nerves II-XII intact without motor/sensory deficit. Objective Labs 08/05/25 06:05 08/05/25 06:05 Labs: Laboratory Results - last 24 hr 08/04/25 08/04/25 08/05/25 14:45 22:10 06:05 WBC 6.5 6.5 RBC 4.98 4.31 Hgb 12.5 10.8 L Hct 38.7 33.1 L MCV 77.6 L 76.8 L MCH 25.2 L 25.1 L MCHC 32.4 32.6 RDW 16.4 H 16.1 H Plt Count 307 268 Neut % (Auto) 74.8 74.5 Lymph % (Auto) 15.5 L 14.8 L [place] % (Auto) 5.1 5.8 Eos % (Auto) 4.1 H 4.1 H Baso % (Auto) 0.5 0.8 Neut # (Auto) 4800 4800 Lymph # (Auto) 1000 L 1000 L [place] # (Auto) 300 400 Eos # (Auto) 300 300 Baso # (Auto) 0 100 Sodium 139 139 Potassium 4.0 3.6 Chloride 103 105 Carbon Dioxide 24 25 BUN 18 H 18 H Creatinine 0.83 0.86 Estimated GFR > 60 > 60 BUN/Creatinine Ratio 21.7 20.9 Glucose 213 H 142 H POC Whole Bld Glucose 212 H Lactate 2.0 Calcium 9.0 8.2 L Total Bilirubin 0.3 AST 23 ALT 25 Alkaline Phosphatase 173 H Total Protein 8.1 Albumin 4.0 Globulin 4.1 Albumin/Globulin Ratio 1.0 Lipase 54 Assessment & Plan Assessment & Plan narrative: UTI with history of ESBL. Admit the patient to medical inpatient. CT scan abdomen pelvis shows persistent inflammation of the left continue system with severe left hydronephrosis and renal atrophy there is also sign of cystitis there is focal tapering of his left ureter without visible obstructing stones Dr. Arora form urology consulted and recommend IV antibiotic for now he does not see any emergent urologoical procedure needed at this time. In addition, Dr. Arora will consult on the case in AM. Continue IV fluid and IV Ertapenem. Insulin Depedent DM Subcu insulin and monitor glucose. Hyperlipidemia resume home statin. Restless syndrome. Resume home medications. GERD. PPI. Asthma. Resume home inhalers. DVT PPx hep SQ Code status full code Disposition home in 2 days - As the provider of this telehealth evaluation, requested by the patient's evaluating physician, I attest that I introduced myself to the patient, provided my credentials and determined that telemedicine via a real-time, 2 way interactive audio and video platform is an appropriate and effective means of providing this service. - I reviewed the patient's chart and had a discussion with the member of the patient's treatment team. - The patient and I mutually agreed with continuation of this evaluation via telemedicine. The patient consented for the telemedicine evaluation. - This virtual encounter was taken place from [place] by Dr. Quinten Elias. The patient was evaluated at [facility]. The encounter was approximately 35 minutes. The nurse was present during the entire time of the encounter and was able assists with the stethoscope to listen to the patients. Time-Based Coding :: [TOTAL MINUTES] spent with patient and on the chart (including review of chart, obtaining history, exam, reviewing outside data, placing orders, documenting exam and treatment plan, and counseling patient) on [DATE]. Quality VTE Deep Vein Thrombosis/Pulmonary Embolism Present on Admission: No
--- NOTE | 2025-08-05 07:04 | PM.HP.1 ---
History of Present Illness History of Present Illness Date Patient Seen: 08/04/25 Time Patient Seen: 20:15 Chief complaint: cont UTI, PC ref Narrative: 74-year-old female with past medical history of hypertension, CVA, with left-sided residual weakness, frequent UTIs, hypertension and asthma presents with dysuria. Per the patient's report, since yesterday, the patient has increasing dysuria, nausea and some suprapubic pain. The patient however denies any fever, chills, vomiting, diarrhea, chest pain, shortness of breath or syncope. Recently the patient was admitted discharge last week few weeks ago for UTI. In the emergency room, the patient was hemodynamically stable. Labs shows a glucose of 213 but otherwise were relatively normal with normal WBC. UA was positive for UTI. CT scan abdomen pelvis shows persistent inflammation of the left continue system with severe left hydronephrosis and renal atrophy there is also sign of cystitis there is focal tapering of his left ureter without visible obstructing stones Dr. Arora form urology consulted and recommend IV antibiotic for now he does not see any emergent urologoical procedure needed at this time. In addition, Dr. Arora will consult on the case in AM. The patient was given Ertapenem due to history of ESLB. [facility] Medical History CAD (coronary artery disease) History of stroke HTN (hypertension) Diabetes Aftercare following left shoulder joint replacement surgery Endometrial cancer Surgical History H/O heart artery stent History of robot-assisted laparoscopic hysterectomy Social History household members: none Smoking Status: Never smoker alcohol intake: current Meds Home Medications and Allergies Home Medications ?Medication ?Instructions ?Recorded ?Confirmed ?Type metoprolol succinate 25 mg 25 mg PO DAILY 05/02/25 08/04/25 History tablet,extended release 24 hr ropinirole 0.25 mg tablet 0.25 mg PO DAILY 05/02/25 08/04/25 History albuterol sulfate 90 mcg/actuation 1 puff inhalation Q4H PRN 07/08/25 08/04/25 History aerosol inhaler shortness of breath or wheezing albuterol sulfate 90 mcg/actuation 2 puff inhalation Q4H PRN 07/08/25 08/04/25 History aerosol inhaler shortness of breath or wheezing atorvastatin 40 mg tablet 40 mg PO DAILY 07/08/25 08/04/25 History clopidogrel 75 mg tablet 75 mg PO DAILY 07/08/25 08/04/25 History fluticasone furoate 100 2 inh inhalation Q24H 07/08/25 08/04/25 History mcg-vilanterol 25 mcg/dose inhalation powder (Breo Ellipta) lidocaine 5 % topical patch 1 patch topical Q24H PRN pain, 07/08/25 08/04/25 History moderate melatonin 10 mg capsule 10 mg PO BEDTIME 07/08/25 08/04/25 History montelukast 10 mg tablet 10 mg PO DAILY 07/08/25 08/04/25 History nystatin 100,000 unit/gram topical 1 applic topical Q8H PRN rash 07/08/25 08/04/25 History powder omeprazole 40 mg capsule,delayed 40 mg PO DAILY 07/08/25 08/04/25 History release ondansetron HCl 4 mg tablet 4 mg PO Q8H PRN nausea and vomiting 07/08/25 08/04/25 History ropinirole 3 mg tablet 3 mg PO ONCE PM 07/08/25 08/04/25 History acetaminophen 325 mg tablet 1,000 mg (3.0769 x 325 mg) PO Q6H 07/14/25 08/04/25 Rx PRN Fever/Mild Pain (1-3) #2 tabs bisacodyl 10 mg rectal suppository 10 mg [place] DAILY PRN Constipation 07/14/25 08/04/25 Rx #10 ea ertapenem 1 gram solution for 1 gm IV Q24H #3 ea 07/14/25 08/04/25 Rx injection insulin glargine 100 unit/mL (3 30 unit (0.3 mL) SUBCUT BEDTIME 07/14/25 08/04/25 Rx mL) subcutaneous pen (Lantus #30 mL Solostar U-100 Insulin) insulin lispro 100 unit/mL 0 unit (0 mL) SUBCUT ACHS #20 mL 07/14/25 08/04/25 Rx subcutaneous solution (Admelog U-100 Insulin lispro) insulin lispro 100 unit/mL 8 unit (0.08 mL) SUBCUT AC #20 mL 07/14/25 08/04/25 Rx subcutaneous solution (Admelog U-100 Insulin lispro) lidocaine 5 % topical patch 1 patch topical BEDTIME #10 ea 07/14/25 08/04/25 Rx polyethylene glycol 3350 17 gram 17 gm PO DAILY PRN constipation 07/14/25 08/04/25 Rx oral powder packet (Gavilax) #10 ea pregabalin 50 mg capsule 50 mg PO 3XD #12 caps 07/14/25 08/04/25 Rx tramadol 50 mg tablet 50 mg PO Q6H PRN pain #20 tabs 07/14/25 08/04/25 Rx methenamine hippurate 1 gram tablet g PO 08/04/25 History Allergies Allergy/AdvReac Type Severity Reaction Status Date / Time codeine Allergy Itching Verified 08/04/25 14:29 Exam Vital Signs (past 8 hours): Oxygen Delivery Method Room Air Oxygen Flow Rate 0 Objective Labs 08/05/25 06:05 08/05/25 06:05 Labs: Laboratory Results - last 24 hr 08/04/25 08/04/25 08/05/25 14:45 22:10 06:05 WBC 6.5 6.5 RBC 4.98 4.31 Hgb 12.5 10.8 L Hct 38.7 33.1 L MCV 77.6 L 76.8 L MCH 25.2 L 25.1 L MCHC 32.4 32.6 RDW 16.4 H 16.1 H Plt Count 307 268 Neut % (Auto) 74.8 74.5 Lymph % (Auto) 15.5 L 14.8 L [place] % (Auto) 5.1 5.8 Eos % (Auto) 4.1 H 4.1 H Baso % (Auto) 0.5 0.8 Neut # (Auto) 4800 4800 Lymph # (Auto) 1000 L 1000 L [place] # (Auto) 300 400 Eos # (Auto) 300 300 Baso # (Auto) 0 100 Sodium 139 139 Potassium 4.0 3.6 Chloride 103 105 Carbon Dioxide 24 25 BUN 18 H 18 H Creatinine 0.83 0.86 Estimated GFR > 60 > 60 BUN/Creatinine Ratio 21.7 20.9 Glucose 213 H 142 H POC Whole Bld Glucose 212 H Lactate 2.0 Calcium 9.0 8.2 L Total Bilirubin 0.3 AST 23 ALT 25 Alkaline Phosphatase 173 H Total Protein 8.1 Albumin 4.0 Globulin 4.1 Albumin/Globulin Ratio 1.0 Lipase 54 Assessment & Plan Time-Based Coding :: [TOTAL MINUTES] spent with patient and on the chart (including review of chart, obtaining history, exam, reviewing outside data, placing orders, documenting exam and treatment plan, and counseling patient) on [DATE]. Quality VTE Deep Vein Thrombosis/Pulmonary Embolism Present on Admission: No
--- NOTE | 2025-08-05 07:21 | PM.PN.1 ---
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 Per the patient's report, since yesterday, the patient has increasing dysuria, nausea and some suprapubic pain. The patient however denies any fever, chills, vomiting, diarrhea, chest pain, shortness of breath or syncope. Recently the patient was admitted discharge last week few weeks ago for UTI. In the emergency room, the patient was hemodynamically stable. Labs shows a glucose of 213 but otherwise were relatively normal with normal WBC. UA was positive for UTI. CT scan abdomen pelvis shows persistent inflammation of the left continue system with severe left hydronephrosis and renal atrophy there is also sign of cystitis there is focal tapering of his left ureter without visible obstructing stones Dr. Ulysses minor urology consulted and recommend IV antibiotic for now he does not see any emergent urologoical procedure needed at this time. In addition, Dr. Arora will consult on the case in AM. The patient was given Ertapenem due to history of ESLB. S: She feels weak, in his having suprapubic tenderness. Some nausea, no vomiting. She was somnolent. She notes that her symptoms recur after several days off from her IV antibiotics. She was also had prominent dysuria. No flank pain or fevers. O: NAD, alert and oriented. Fluent speech. Lungs are clear, normal rate and effort. Heart is regular, no murmur gallop or rub. Abdomen is soft, non distended. Extremities are free of edema. IMAGING: CTAP: Persistent inflammation of the left collecting system with severe left hydronephrosis and renal atrophy. There is also bladder wall inflammation together suggestive of infection. Etiology of obstruction is not obvious. There is focal tapering of the distal left ureter without visible obstructing stone. Retroperitoneal adenopathy which may be reactive A/P: 1. UTI with history of ESBL. Admit the patient to medical inpatient. CT scan abdomen pelvis shows persistent inflammation of the left continue system with severe left hydronephrosis and renal atrophy there is also sign of cystitis there is focal tapering of his left ureter without visible obstructing stones Dr. Ulysses minor urology consulted and recommend IV antibiotic for now he does not see any emergent urologoical procedure needed at this time. In addition, Dr. Arora will consult on the case in AM. Continue IV fluid and IV Ertapenem. 2. Insulin Depedent DM Subcu insulin and monitor glucose. 3. Hyperlipidemia resume home statin. 4. Restless syndrome. Resume home medications. 5. GERD. PPI. 6. Asthma. Resume home inhalers. PLAN: -we will continue meropenem, and anticipate placement of access for prolonged IV antibiotics at nursing facility. -follow up on cultures obtained in the emergency department. -monitor and control glucose. DVT PPx hep SQ Code status full code Requires at least 2 midnights of care, supports inpatient status. Exam Vital Signs (past 8 hours): Oxygen Delivery Method Room Air Oxygen Flow Rate 0 Objective Labs 08/05/25 06:05 08/05/25 06:05 Labs: Laboratory Results - last 24 hr 08/04/25 08/04/25 08/05/25 14:45 22:10 06:05 WBC 6.5 6.5 RBC 4.98 4.31 Hgb 12.5 10.8 L Hct 38.7 33.1 L MCV 77.6 L 76.8 L MCH 25.2 L 25.1 L MCHC 32.4 32.6 RDW 16.4 H 16.1 H Plt Count 307 268 Neut % (Auto) 74.8 74.5 Lymph % (Auto) 15.5 L 14.8 L [place] % (Auto) 5.1 5.8 Eos % (Auto) 4.1 H 4.1 H Baso % (Auto) 0.5 0.8 Neut # (Auto) 4800 4800 Lymph # (Auto) 1000 L 1000 L [place] # (Auto) 300 400 Eos # (Auto) 300 300 Baso # (Auto) 0 100 Sodium 139 139 Potassium 4.0 3.6 Chloride 103 105 Carbon Dioxide 24 25 BUN 18 H 18 H Creatinine 0.83 0.86 Estimated GFR > 60 > 60 BUN/Creatinine Ratio 21.7 20.9 Glucose 213 H 142 H POC Whole Bld Glucose 212 H Lactate 2.0 Calcium 9.0 8.2 L Total Bilirubin 0.3 AST 23 ALT 25 Alkaline Phosphatase 173 H Total Protein 8.1 Albumin 4.0 Globulin 4.1 Albumin/Globulin Ratio 1.0 Lipase 54 PFSH Medical History CAD (coronary artery disease) History of stroke HTN (hypertension) Diabetes Aftercare following left shoulder joint replacement surgery Endometrial cancer Surgical History H/O heart artery stent History of robot-assisted laparoscopic hysterectomy Social History household members: none Smoking Status: Never smoker alcohol intake: current Assessment & Plan Time-Based Coding :: [TOTAL MINUTES] spent with patient and on the chart (including review of chart, obtaining history, exam, reviewing outside data, placing orders, documenting exam and treatment plan, and counseling patient) on [DATE]. Quality VTE Deep Vein Thrombosis/Pulmonary Embolism Present on Admission: No
[2025-08-05 08:00] VITALS: BP 111/42; PULSE 80; RESP 16; TEMP 35.9; O2SAT 95
[2025-08-05] MEDS: PANTOPRAZOLE DR 40 MG TABLET PO (08:49)
[2025-08-05] MEDS: PREGABALIN 25 MG CAPSULE 50 MG PO ×3 (08:49→20:38)
[2025-08-05] MEDS: CLOPIDOGREL 75 MG TABLET PO (08:49)
[2025-08-05] MEDS: MONTELUKAST 10 MG TABLET PO (08:49)
[2025-08-05] MEDS: HEPARIN 5,000 UNIT/ML VIAL 5000 UNIT SUBCUT ×2 (08:50→20:37)
[2025-08-05] MEDS: ATORVASTATIN 20 MG TABLET 40 MG PO (08:50)
[2025-08-05] MEDS: METOPROLOL ER 25 MG TABLET PO (08:50)
--- NOTE | 2025-08-05 08:59 | PM.CN.IH.1 ---
History of Present Illness Consult details Date Patient Seen: 08/05/25 Time Patient Seen: 09:00 Chief complaint: dysuria, concern for UTI Reason for consult: Left moderate to severe hydroureteronephrosis, urinary tract infection Narrative: 74 y/o F presents to ER for evaluation of suprapubic pain, urinary frequency and concern for a recurrent UTI. Briefly, she admits to a history of recurrent UTI's. She was admitted to in Jun for an ESBL UTI. Over the last few days, she admits to worsening dysuria, nausea and suprapubic pain. Her evaluation in the ER was notable for a WBC of 6.5, sCr of 0.83 and a UA concerning for infection. Her CT Abd/Pel was notable for left renal atrophy with severe left hydroureteronephrosis that tapers in the left distal ureter without an obstructing mass or a urolith. She otherwise denies any left flank pain or vomiting. She admits to prior management of her left hydroureteronephrosis with a stent placement that was exchanged every 3 months in [place], [place]. This was ceased a year or two ago as it was not helping and she was experiencing severe stent discomfort. Meds Home Medications and Allergies Home Medications ?Medication ?Instructions ?Recorded ?Confirmed ?Type metoprolol succinate 25 mg 25 mg PO DAILY 05/02/25 08/04/25 History tablet,extended release 24 hr ropinirole 0.25 mg tablet 0.25 mg PO DAILY 05/02/25 08/04/25 History albuterol sulfate 90 mcg/actuation 1 puff inhalation Q4H PRN 07/08/25 08/04/25 History aerosol inhaler shortness of breath or wheezing albuterol sulfate 90 mcg/actuation 2 puff inhalation Q4H PRN 07/08/25 08/04/25 History aerosol inhaler shortness of breath or wheezing atorvastatin 40 mg tablet 40 mg PO DAILY 07/08/25 08/04/25 History clopidogrel 75 mg tablet 75 mg PO DAILY 07/08/25 08/04/25 History fluticasone furoate 100 2 inh inhalation Q24H 07/08/25 08/04/25 History mcg-vilanterol 25 mcg/dose inhalation powder (Breo Ellipta) lidocaine 5 % topical patch 1 patch topical Q24H PRN pain, 07/08/25 08/04/25 History moderate melatonin 10 mg capsule 10 mg PO BEDTIME 07/08/25 08/04/25 History montelukast 10 mg tablet 10 mg PO DAILY 07/08/25 08/04/25 History nystatin 100,000 unit/gram topical 1 applic topical Q8H PRN rash 07/08/25 08/04/25 History powder omeprazole 40 mg capsule,delayed 40 mg PO DAILY 07/08/25 08/04/25 History release ondansetron HCl 4 mg tablet 4 mg PO Q8H PRN nausea and vomiting 07/08/25 08/04/25 History ropinirole 3 mg tablet 3 mg PO ONCE PM 07/08/25 08/04/25 History acetaminophen 325 mg tablet 1,000 mg (3.0769 x 325 mg) PO Q6H 07/14/25 08/04/25 Rx PRN Fever/Mild Pain (1-3) #2 tabs bisacodyl 10 mg rectal suppository 10 mg OK DAILY PRN Constipation 07/14/25 08/04/25 Rx #10 ea ertapenem 1 gram solution for 1 gm IV Q24H #3 ea 07/14/25 08/04/25 Rx injection insulin glargine 100 unit/mL (3 30 unit (0.3 mL) SUBCUT BEDTIME 07/14/25 08/04/25 Rx mL) subcutaneous pen (Lantus #30 mL Solostar U-100 Insulin) insulin lispro 100 unit/mL 0 unit (0 mL) SUBCUT ACHS #20 mL 07/14/25 08/04/25 Rx subcutaneous solution (Admelog U-100 Insulin lispro) insulin lispro 100 unit/mL 8 unit (0.08 mL) SUBCUT AC #20 mL 07/14/25 08/04/25 Rx subcutaneous solution (Admelog U-100 Insulin lispro) lidocaine 5 % topical patch 1 patch topical BEDTIME #10 ea 07/14/25 08/04/25 Rx polyethylene glycol 3350 17 gram 17 gm PO DAILY PRN constipation 07/14/25 08/04/25 Rx oral powder packet (Gavilax) #10 ea pregabalin 50 mg capsule 50 mg PO 3XD #12 caps 07/14/25 08/04/25 Rx tramadol 50 mg tablet 50 mg PO Q6H PRN pain #20 tabs 10/20/25 11/10/25 Rx methenamine hippurate 1 gram tablet g PO 08/04/25 History Allergies Allergy/AdvReac Type Severity Reaction Status Date / Time codeine Allergy Itching Verified 08/04/25 14:29 Review of Systems Review of Systems Narrative: A complete ROS was completed with all pertinent positives and negatives documented in HPI. All other systems were reviewed and are negative. Exam Vital Signs (past 8 hours): - 08/05/25 08:00 Temperature 96.7 F L Pulse Rate 80 Respiratory Rate 16 Blood Pressure 111/42 L Pulse Oximetry 95 Oxygen Flow Rate 0 Oxygen Delivery Method Room Air Oxygen Flow Rate 0 Narrative Exam Narrative: GEN: Alert and oriented X3. No acute distress. Well-nourished. EYES: PERRLA, EOMI. HENT: Moist mucus membranes, no scleral icterus, normal neck ROM. RESP: Unlabored breathing, equal rise and fall of chest bilaterally, no cyanosis appreciated. CV: No peripheral edema, unremarkable heart rate. ABD: Soft, non-tender, non-distended, no palpable masses. EXT: No edema, clubbing or cyanosis. SKIN: No rashes or lesions. NEURO: No focal neurologic deficits, CN II-XII grossly intact. PSYCH: Cooperative, appropriate mood and affect. Objective Labs 08/05/25 06:05 08/05/25 06:05 Labs: Laboratory Results - last 24 hr 08/04/25 08/04/25 08/05/25 14:45 22:10 06:05 WBC 6.5 6.5 RBC 4.98 4.31 Hgb 12.5 10.8 L Hct 38.7 33.1 L MCV 77.6 L 76.8 L MCH 25.2 L 25.1 L MCHC 32.4 32.6 RDW 16.4 H 16.1 H Plt Count 307 268 Neut % (Auto) 74.8 74.5 Lymph % (Auto) 15.5 L 14.8 L Morehouse % (Auto) 5.1 5.8 Eos % (Auto) 4.1 H 4.1 H Baso % (Auto) 0.5 0.8 Neut # (Auto) 4800 4800 Lymph # (Auto) 1000 L 1000 L Morehouse # (Auto) 300 400 Eos # (Auto) 300 300 Baso # (Auto) 0 100 Sodium 139 139 Potassium 4.0 3.6 Chloride 103 105 Carbon Dioxide 24 25 BUN 18 H 18 H Creatinine 0.83 0.86 Estimated GFR > 60 > 60 BUN/Creatinine Ratio 21.7 20.9 Glucose 213 H 142 H POC Whole Bld Glucose 212 H Lactate 2.0 Calcium 9.0 8.2 L Total Bilirubin 0.3 AST 23 ALT 25 Alkaline Phosphatase 173 H Total Protein 8.1 Albumin 4.0 Globulin 4.1 Albumin/Globulin Ratio 1.0 Lipase 54 PFSH Medical History CAD (coronary artery disease) History of stroke HTN (hypertension) Diabetes Aftercare following left shoulder joint replacement surgery Endometrial cancer Surgical History H/O heart artery stent History of robot-assisted laparoscopic hysterectomy Social History household members: none Tobacco & Substance Use Smoking Status: Never smoker alcohol intake: current Assessment & Plan Assessment and plan (1) Hydronephrosis, left: Status: Acute Plan: 74 y/o F w/ left renal atrophy in the setting of severe left hydroureteronephrosis that abruptly tapers within the distal left ureter without an obvious obstructing mass and/or urolith. Discussed that her imaging has remained relatively stable over the last 18 months and that I do not believe a left ureteral stent is warranted at this time. Discussed options to include continued treatment of her UTI with return to Urology clinic in a few months to discuss recurrent UTI prevention vs cystoscopy with left ureteral stent placement. Discussed risks of the procedure to include but not limited to pain, bleeding, infection, injury to urethra/bladder/ureter, inability to access the ureter requiring discussion with Interventional Radiology regarding a possible ureteral stent placement in an antegrade fashion vs a possible nephroureteral stent and/or percutaneous nephrostomy tube, urinary tract infection, need for emergent open repair of bladder and/or ureter. At this time, she would prefer to continue with treatment of her UTI and return to Urology clinic in a few months to discuss recurrent UTI prevention. - No Urological procedure necessary at this time - Appreciate assistance of hospitalist team in treatment of this patient - Will arrange outpatient follow-up - Please reconsult Urology should additional questions/concerns arise (2) Urinary tract infection: Qualifiers: Urinary tract infection type: site unspecified Hematuria presence: without hematuria Qualified Code(s): N39.0 - Urinary tract infection, site not specified Status: Acute Plan: Please see plan above. Time-Based Coding :: [TOTAL MINUTES] spent with patient and on the chart (including review of chart, obtaining history, exam, reviewing outside data, placing orders, documenting exam and treatment plan, and counseling patient) on [DATE]. PROFEE Charge Codes Inpatient or Observation consultation: [id number]
[2025-08-05] MEDS: INSULIN LISPRO 100 UNIT/ML 3ML VIAL SUBCUT (12:04)
--- NOTE | 2025-08-05 14:33 | DIET.CONS ---
Dietary Consultation Note Admission Date: 08/04/2025 19:24 Assessment: 74 y F admitted for UTI/Hydronephrosis. Dietitian consulted for DM. Met with pt last visit for educ. Met again with pt today. Reports difficulty finding replacement for desserts so has been doing regular desserts. Reports there was no soda at [facility]. Ht: 160.02 cm Wt: 97.5 kg BMI: 38.0 UBW: - Last BM: 08/05/25 (08/05/25 06:00) MNA: 11 Drew Score: 17 Diet: 08/05/25 Lunch Carbohydrate Consistent Diet Diet Modifications: Heart Healthy Carbohydrate level: Medium (3 CHO) Reflex DM orders: No Food Texture: Level 7 - Regular Liquid Consistency: Level 0 - Thin Nutrition Percent Meal Consumed 75% 08/05/25 09:34 Labs: RBC 4.31 X10^6/uL (4.0-5.2) 08/05/25 06:05 Hgb 10.8 g/dL (12.0-16.0) L 08/05/25 06:05 Hct 33.1 % (36-46) L 08/05/25 06:05 Creatinine 0.86 mg/dL (0.52-1.04) 08/05/25 06:05 Lactate 2.0 mmol/L (0.7-2.1) 08/04/25 14:45 Nutrition Diagnosis: Altered nutrition related lab values (A1c%) r/t endocrine dysfunction and excessive CHO intake aeb A1c 10.6% on 07/09/25 Interventions: -Reviewed CHO portions and pairing with protein -Discussed dessert alternatives -Changed diet from heart healthy to CCD+ Heart Healthy EER: 45 g CHO at meals Monitoring/Evaluations: BG, f/u tomorrow pt having difficulty staying awake at visit, reports poor sleep quality last night Electronically Signed by: Gissell Camarena 08/05/25 14:33 Clinical Dietitian [address] [address]
--- NOTE | 2025-08-05 14:39 | CM.DANOTE ---
DCP Assessment Note: Pt is a 74yo female, resident of [place], is admitted for UTI with history of ESBL. Pt is a resident at [facility]. Pt's Primary Care Provider is Dr. Sid Townsend and insurance is [facility] and [facility]. Reviewed chart and discussed with multidisciplinary team pt's medical status and initial discharge needs. Patient was inpatient on 07/08/25-07/15/25. Per hospitalist, pt will require approximately 2 weeks of merepenem antibiotic. DCP met w/patient at bedside; introduced self and role. Patient was found in bed, alert and oriented, cooperative with assessment. Pt confirmed living situation at [facility]. Pt expressed preference in [facility]. Pt has a hx of [facility] at last admission. PIERCER OPERATOR sent referral to [facility] via secure email. Will need PASRR initiated. Plan: Anticipating discharge to SNF for terminal carman IV abx, facility van to transport. CM team will follow closely for coordination of discharge plans. Cira Mayo [facility] Discharge Planning/Care Management Advanced directive,confirm from FACILITY Start: 08/04/25 21:05 Freq: Q24H Status: Active Protocol: Document 08/04/25 21:05 AGW (Rec: 08/05/25 00:34 AGW [id number]) Advance Directive, confirm on record Time 23:00 Person contacted PATIENT Copy received No CM Discharge Assessment Start: 08/04/25 19:46 Freq: Status: Active Protocol: Document 08/05/25 14:31 MW (Rec: 08/05/25 14:39 MW [id number]) Discharge Planning Assessment Assigned Discharge SAVI Denis Theatre Professor Provider Sid Townsend MD Insurance Medicaid,[facility] DPOA/Assigned Seng Healy Designee Name Contact Information [phone] Advance Directives? Yes Advance Directives No on File History Provided By Patient,Medical Record Has Patient been Yes admitted in last 30 days? Comment 07/08/25-07/15/25 Prior Living Assisted Living Arrangements Household Members none Facility Name [facility] Admitted From: Willing to Return to Yes Facility? Independent with ADL No 's Is patient alert and Yes oriented? DME Already Rented / Bath Bench,Elevated Toilet Seat,FWW / Walker Owned Comment Electric scooter Patient/Family [facility] Facility Preference Discharge Plan [facility] Facility Transportation Facility Arrangement Referrals Initiated [facility] If patient plan is Yes SNF: Has PASSR been completed? Medicare Choice List Yes Provided Medicare choice list patient reviewed on electronic tablet with Review Status In Process Please Provide Date 08/05/25 Initial DC Assessment Was Performed Next Review Type Continued Stay Review
[2025-08-05] MEDS: SODIUM CHLORIDE 0.9% 1,000 ML 100 ML IV (15:22)
[2025-08-05] MEDS: ERTAPENEM 1 GM in SODIUM CHLORIDE 0.9% 100 ML IV (18:56)
[2025-08-05] MEDS: MELATONIN 3 MG TABLET 9 MG PO (20:38)
[2025-08-05] MEDS: INSULIN GLARGINE 100 UNIT/ML 3ML PEN 30 UNIT SUBCUT (20:47)
[2025-08-05 21:04] VITALS: BP 126/49; PULSE 69; RESP 18; TEMP 36.2; O2SAT 95
[2025-08-06] MEDS: SODIUM CHLORIDE 0.9% 1,000 ML 100 ML IV ×2 (04:54→15:51)
--- NOTE | 2025-08-06 07:21 | P.PN_ITS ---
Subjective Subjective Interval history: S: She was doing well, midline placed in left arm today. No fevers overnight. O: VSS NAD, fluent speech. Normal respiratory effort. Abdomen is nondistended. No skin rash or lesions. A/P: 1. UTI with history of ESBL. 2. Insulin Depedent DM Subcu insulin and monitor glucose. 3. Hyperlipidemia resume home statin. 4. Restless syndrome. Resume home medications. 5. GERD. PPI. 6. Asthma. Resume home inhalers. 7. Chronic left hydronephrosis with renal atrophy. No further interventions per urology. PLAN: -we will continue Ertapenem, and anticipate placement of access for prolonged IV antibiotics at nursing facility (14 day course given her relapse after a 7 day course before. Likely relates to her anatomic abnormalities with left hydronephrosis and renal atrophy.). -follow up on cultures obtained in the emergency department. -monitor and control glucose. -Midline for access. Placed today. -Needs SNF for IV Abx (14 days) DVT PPx hep SQ Code status full code Requires at least 2 midnights of care, supports inpatient status. Exam Vital Signs (past 8 hours): Oxygen Delivery Method Room Air Oxygen Flow Rate 0 Objective Labs 08/05/25 06:05 08/05/25 06:05 Labs: Laboratory Results - last 24 hr 08/05/25 08/05/25 08/05/25 08:00 11:50 16:48 POC Whole Bld Glucose 138 H 291 H D 137 H D 08/05/25 20:25 POC Whole Bld Glucose 188 H [facility] Medical History CAD (coronary artery disease) History of stroke HTN (hypertension) Diabetes Aftercare following left shoulder joint replacement surgery Endometrial cancer Surgical History H/O heart artery stent History of robot-assisted laparoscopic hysterectomy Social History household members: none Smoking Status: Never smoker alcohol intake: current Assessment & Plan Time-Based Coding :: [TOTAL MINUTES] spent with patient and on the chart (including review of chart, obtaining history, exam, reviewing outside data, placing orders, documenting exam and treatment plan, and counseling patient) on [DATE]. Quality VTE Deep Vein Thrombosis/Pulmonary Embolism Present on Admission: No
[2025-08-06 07:55] VITALS: BP 121/57; PULSE 75; RESP 17; TEMP 36.1; O2SAT 93
[2025-08-06] MEDS: ATORVASTATIN 20 MG TABLET 40 MG PO (09:08)
[2025-08-06] MEDS: CLOPIDOGREL 75 MG TABLET PO (09:08)
[2025-08-06] MEDS: MONTELUKAST 10 MG TABLET PO (09:08)
[2025-08-06] MEDS: PANTOPRAZOLE DR 40 MG TABLET PO (09:08)
[2025-08-06] MEDS: PREGABALIN 25 MG CAPSULE 50 MG PO ×3 (09:08→20:39)
[2025-08-06 09:09] VITALS: BP 121/57; PULSE 74
[2025-08-06] MEDS: HEPARIN 5,000 UNIT/ML VIAL 5000 UNIT SUBCUT ×2 (09:09→20:40)
[2025-08-06] MEDS: METOPROLOL ER 25 MG TABLET PO (09:09)
--- NOTE | 2025-08-06 11:43 | CM.DPC ---
PASRR SENT TO [facility]. PT EVAL NEEDS TO BE SENT WHEN IT'S AVAILABLE.
[2025-08-06] MEDS: ERTAPENEM 1 GM in SODIUM CHLORIDE 0.9% 100 ML IV (18:58)
[2025-08-06 19:35] VITALS: BP 157/61; PULSE 69; RESP 17; TEMP 36.2; O2SAT 95
[2025-08-06] MEDS: MELATONIN 3 MG TABLET 9 MG PO (20:38)
[2025-08-06] MEDS: INSULIN LISPRO 100 UNIT/ML 3ML VIAL SUBCUT (20:39)
[2025-08-06] MEDS: INSULIN GLARGINE 100 UNIT/ML 3ML PEN 30 UNIT SUBCUT (20:40)
--- NOTE | 2025-08-07 00:11 | PC.NURSE ---
Patient is alert and oriented. Breath sounds diminished at bases but CTA with RA sat of 95%. Mildly hypertensive w/BP of 157/61. Denied nausea. BT hypoactive and is incontinent of B&B; purewick being used in order to prevent skin breakdown. Periarea is reddened but blanchable. Is being repositioned q2h. Has no movement in left UE and weakness/pain in left LE which are both chronic and unchanged. Neuropathy present in left LE. Requiring use of [facility] for transfers and is w/c bound at baseline. On contact isolation for ESBL in urine. Refuses SCD's. Fall risk score is high and bed alarm is activated.
[2025-08-07] MEDS: SODIUM CHLORIDE 0.9% 1,000 ML 100 ML IV ×3 (02:09→21:29)
--- NOTE | 2025-08-07 10:24 | CM.DPC ---
CM confirmed CONTACT ISO with Tiffani at . Auth was submitted yesterday. Auth is still pending. PT eval also still pending.
[2025-08-07] MEDS: PREGABALIN 25 MG CAPSULE 50 MG PO ×3 (11:00→21:01)
[2025-08-07 11:01] VITALS: BP 157/61; PULSE 69
[2025-08-07] MEDS: PANTOPRAZOLE DR 40 MG TABLET PO (11:01)
[2025-08-07] MEDS: CLOPIDOGREL 75 MG TABLET PO (11:01)
[2025-08-07] MEDS: MONTELUKAST 10 MG TABLET PO (11:01)
[2025-08-07] MEDS: ATORVASTATIN 20 MG TABLET 40 MG PO (11:01)
[2025-08-07] MEDS: METOPROLOL ER 25 MG TABLET PO (11:01)
[2025-08-07] MEDS: HEPARIN 5,000 UNIT/ML VIAL 5000 UNIT SUBCUT ×2 (11:02→21:01)
--- NOTE | 2025-08-07 11:18 | DIET.PN1 ---
Dietary Progress Note Assessment: f/u Pt confirms she will aim for 45 g CHO or 1 cup carb serving at meals, limit candy, pair snacks with protein source (cheese/pb), and switch to coke zeros. We reviewed BG levels. When asked she initially thought 100 was low BG. Reviewed lows are <70. Reviewed symptoms. Reviewed the different types of insulin she is receiving. Discussed adequate hydration. Fluids needs 85-95 oz based on gisel segar vs 30 ml/kg per age. Ht: 160.02 cm Wt: 97.5 kg BMI: 38.0 Last BM: 08/06/25 (08/06/25 21:00) MNA: 11 Drew Score: 15 Diet: 08/05/25 Lunch Carbohydrate Consistent Diet Diet Modifications: Heart Healthy Carbohydrate level: Medium (3 CHO) Reflex DM orders: No Food Texture: Level 7 - Regular Liquid Consistency: Level 0 - Thin Nutrition Percent Meal Consumed 100% 08/07/25 08:29 Percent Meal Consumed 75% 08/06/25 19:06 Percent Meal Consumed 90 08/06/25 12:43 Percent Meal Consumed 75% 08/06/25 09:45 Percent Meal Consumed 100% 08/05/25 18:00 Labs: RBC 4.31 X10^6/uL (4.0-5.2) 08/05/25 06:05 Hgb 10.8 g/dL (12.0-16.0) L 08/05/25 06:05 Hct 33.1 % (36-46) L 08/05/25 06:05 Creatinine 0.86 mg/dL (0.52-1.04) 08/05/25 06:05 Lactate 2.0 mmol/L (0.7-2.1) 08/04/25 14:45 Electronically Signed by: Gissell Camarena 08/07/25 11:18 Clinical Dietitian [address] [address]
[2025-08-07] MEDS: INSULIN LISPRO 100 UNIT/ML 3ML VIAL SUBCUT (11:50)
--- NOTE | 2025-08-07 11:51 | PT.IIE ---
Current Diagnoses Unspecified hydronephrosis (08/04/25) Urinary tract infection, site not specified (08/04/25) Surgical History (Last Reviewed 08/05/25 @ 09:07 by Clement Arora DO) H/O heart artery stent History of robot-assisted laparoscopic hysterectomy Medical History (Last Reviewed 08/05/25 @ 09:07 by Clement Arora DO) Aftercare following left shoulder joint replacement surgery CAD (coronary artery disease) Diabetes Endometrial cancer History of stroke HTN (hypertension) Physical Therapy Inpatient Evaluation/Re-Eval M1 PT IP Prior Functional Status Start: 08/07/25 11:40 Freq: NEEDED Status: Active Protocol: Document 08/07/25 11:40 KJ (Rec: 08/07/25 11:50 KJ [id number]) Medical Review Prior Functional Status Medical History Yes Reviewed Mobility and Gait Has electric wheelchair. Previously was able to stand pivot from bed to chair, using quad cane. Activities of Daily required assistance for all ADL Living and IADL's Social History Household Members none Living Arrangements Assisted Living Home Equipment Quad Cane,Power Wheelchair/Scooter Additional Social Rebeka [place] History Comment M2 PT-IP Current Condition Start: 08/07/25 11:40 Freq: NEEDED Status: Active Protocol: Document 08/07/25 11:40 KJ (Rec: 08/07/25 11:50 KJ [id number]) Physical Therapy Current Condition Current Condition Evaluation Date 08/07/25 Treatment Diagnosis impaired mobility M3 PT-IP Subjective Start: 08/07/25 11:40 Freq: NEEDED Status: Active Protocol: Document 08/07/25 11:40 KJ (Rec: 08/07/25 11:50 KJ [id number]) Subjective Physical Therapy Visit Type Type Initial Evaluation Visit Start Time 10:57 Visit Stop Time 11:39 Physical Therapy Visit Comments Patient Comments LLE orthotic is painful (same as previous to admission) . Afraid of standing/falling. Patient Goals Return to [facility] Therapy Pain Assessment Pain When Pain Assessed At Rest Pain Present Pain Present Pain Reported Location Left Knee Pain Management Re-positioning Techniques M4 PT-IP Mobility and Gait Start: 08/07/25 11:40 Freq: NEEDED Status: Active Protocol: Document 08/07/25 11:40 KJ (Rec: 08/07/25 11:50 KJ [id number]) PT-Bed Mobility Assessment Rolling Type of Rolling Roll to Right Level of Assist Moderate Assistance Supine to Sit Supine to Sit Moderate Assistance Sit to Supine Sit to Supine Moderate Assistance Scooting Scooting to Edge of Moderate Assistance Bed Scooting Up and Down Maximum Assistance in Bed PT-Transfer Assessment Sit to and From Stand Sit to and from Minimal Assistance Stand Equipment Transfer Assistive Gait Belt,Otilio Walker Device Orthotic/Prosthetic Yes Devices or Brace: Comments Mobility Comments Worked on sit to/from stand. 2 assists present however pt required only min assist. PT-Balance Assessment Sitting Balance and Reactions Static Sitting Good Balance Ability Dynamic Sitting Good Balance Ability Standing Balance and Reactions Static Standing Good Balance Ability Dynamic Standing Fair Balance Ability Functional Assessments Functional Tests 5 Times Sit to Stand 4 min M5 PT-IP Objective Assessments Start: 08/07/25 11:40 Freq: NEEDED Status: Active Protocol: Document 08/07/25 11:40 KJ (Rec: 08/07/25 11:50 KJ [id number]) Orientation Orientation/Cognition Level of Alertness Alert Orientation Name,Age,Birthday,Month,Date,Year,Day of Week,Place, Situation Language Function No Deficits Noted Ability Safety Awareness Understands Safety Issues Memory Description No Deficits Noted Gross Range of Motion Upper Extremity ROM Assessment Left Impaired Impairments R is WFL. No active movement in LUE. PROM in LUE is limited particularly in the shoulder. Lower Extremity ROM Assessment Left Impaired Impairments R is WFL. L shows trace movement in ankle and hip Strength Upper Extremity Strength Assessment Left Impaired Shoulder R WFL Elbow R WFL Wrist R WFL Hand R WFL Lower Extremity Strength Assessment Left Impaired Hip R WFL Knee R WFL Ankle R WFL Comments Strength Comments Hx L rotator cuff tear with repair, painful PROM, quite limited Muscle Tone Comments Muscle Tone Comments Increased tone L extremities M6 PT-IP Treatment Start: 08/07/25 11:40 Freq: NEEDED Status: Active Protocol: Document 08/07/25 11:40 KJ (Rec: 08/07/25 11:50 KJ [id number]) Physical Therapy Treatment Education Education Provided Safety Other Treatments Other Treatment Cuing for safe sitting balance at eob. educated pt on Performed safety during standing and sit to stand activities M7 PT-IP Assessment and Plan Start: 08/07/25 11:40 Freq: NEEDED Status: Active Protocol: Document 08/07/25 11:40 KJ (Rec: 08/07/25 11:50 KJ [id number]) PT Summary Assessment and Plan Potential Rehabilitation Good Potential Status of Condition Evolving at Evaluation Summary Impairments Pain,ROM,Strength,Bed Mobility,Transfers Assessment Summary Pt with longstanding deficits following CVA an rotator cuff tear was previously able to stand and pivot transfer into her wheelchair. Pt will benefit from training to regain this ability. Goals Bed Mobility Goal Minimal Assistance Transfer Goal Minimal Assistance Days to Meet Goals 5 Frequency of Treatment Frequency Of Once a Day Treatment Treatment Plan Physical Therapy Therapeutic Exercise Treatment Plan Other Continue to work on sit to stand and standing tolerance Recommendations and , progress to stand pivot transfers Next Treatment Focus Precautions Brace L ankle Recommendations To Nursing Amount of Assist 2 Person Assist,Mechanical Lift Needed Discharge Recommendations PT Discharge SNF Rehab Recommendations Transportation Needs Wheelchair/Cabulance at Discharge - PT assist +1
--- NOTE | 2025-08-07 12:12 | CM.DPC ---
Physical Therapy eval sent to .
[2025-08-07 12:33] LABS: Hematocrit 31.5 % (36-46); Hemoglobin 10.1 g/dL (12.0-16.0); Mean Corpuscular HGB Conc 32.1 % (30-36); Mean Corpuscular Hemoglobin 24.9 PG (26-34); Mean Corpuscular Volume 77.4 fL (80-100); Platelet Count 250 X10^3/uL (150-400)
[2025-08-07 12:39] LABS: Blood Urea Nitrogen 13 mg/dL (7-17); Calcium 7.9 mg/dL (8.4-10.2); Carbon Dioxide 22 mmol/L (22-32); Chloride 111 mmol/L (98-107); Estimated Glomerular Filt Rate > 60 mL/min (>60); Glucose 179 mg/dL (70-99); HEMOLYSIS < 15 (0-50); Potassium 3.6 mmol/L (3.4-5.1); Sodium 140 mmol/L (137-145)
[2025-08-07 13:44] VITALS: BP 134/53; PULSE 66; RESP 16; O2SAT 97
[2025-08-07 14:10] VITALS: BP 134/53; PULSE 66
--- NOTE | 2025-08-07 15:01 | PM.PN.1 ---
Subjective Subjective Interval history: S: She was doing well, some bladder pain. No dysuria. She was little bit constipated and requests some senna. No difficulties with dyspnea. O: VSS NAD, alert and oriented. Fluent speech. Lungs are clear, normal rate and effort. Heart is regular, no murmur gallop or rub. Abdomen is soft, somewhat distended nontender. There is some tenderness over the bladder to palpation. Extremities are free of edema. A/P: 1. UTI with history of ESBL. Improving. 2. Insulin Depedent DM Subcu insulin and monitor glucose. Stable. 3. Hyperlipidemia resume home statin. Stable. 4. Restless syndrome. Resume home medications. Stable. 5. GERD. PPI. Stable. 6. Asthma. Resume home inhalers. Stable. 7. Chronic left hydronephrosis with renal atrophy. No further interventions per urology. Stable. PLAN: -continue IV ertapenem 1 g daily through left arm midline. Awaiting authorization for care home facility to complete her antibiotic course of 14 days. -add senna for bowel program. Exam Vital Signs (past 8 hours): - 08/07/25 11:01 08/07/25 13:44 08/07/25 14:10 Pulse Rate 69 66 66 Respiratory Rate 16 Blood Pressure 157/61 H 134/53 L 134/53 L Pulse Oximetry 97 Oxygen Flow Rate 0 Oxygen Delivery Method Room Air Oxygen Flow Rate 0 Objective Labs 08/07/25 12:15 08/07/25 12:15 Labs: Laboratory Results - last 24 hr 08/06/25 08/06/25 08/07/25 16:56 19:30 04:12 WBC RBC Hgb Hct MCV MCH MCHC RDW Plt Count Sodium Potassium Chloride Carbon Dioxide BUN Creatinine Estimated GFR BUN/Creatinine Ratio Glucose POC Whole Bld Glucose 170 H 192 H 118 H Calcium 08/07/25 08/07/25 08/07/25 08:01 11:20 12:15 WBC 4.9 RBC 4.07 Hgb 10.1 L Hct 31.5 L MCV 77.4 L MCH 24.9 L MCHC 32.1 RDW 16.3 H Plt Count 250 Sodium 140 Potassium 3.6 Chloride 111 H Carbon Dioxide 22 BUN 13 Creatinine 0.70 Estimated GFR > 60 BUN/Creatinine Ratio 18.6 Glucose 179 H POC Whole Bld Glucose 109 H 179 H Calcium 7.9 L PFSH Medical History CAD (coronary artery disease) History of stroke HTN (hypertension) Diabetes Aftercare following left shoulder joint replacement surgery Endometrial cancer Surgical History H/O heart artery stent History of robot-assisted laparoscopic hysterectomy Social History household members: none Smoking Status: Never smoker alcohol intake: current Assessment & Plan Time-Based Coding :: [TOTAL MINUTES] spent with patient and on the chart (including review of chart, obtaining history, exam, reviewing outside data, placing orders, documenting exam and treatment plan, and counseling patient) on [DATE]. Quality VTE Deep Vein Thrombosis/Pulmonary Embolism Present on Admission: No
[2025-08-07] MEDS: SENNOSIDES 8.6 MG TABLET PO (16:09)
[2025-08-07] MEDS: ERTAPENEM 1 GM in SODIUM CHLORIDE 0.9% 100 ML IV (18:29)
[2025-08-07 19:00] VITALS: BP 138/56; PULSE 67; RESP 18; TEMP 35.9; O2SAT 97
[2025-08-07] MEDS: MELATONIN 3 MG TABLET 9 MG PO (21:01)
[2025-08-07] MEDS: INSULIN GLARGINE 100 UNIT/ML 3ML PEN 30 UNIT SUBCUT (21:04)
[2025-08-07] MEDS: ONDANSETRON 4 MG/2 ML INJ IV (21:34)
[2025-08-08] MEDS: ACETAMINOPHEN 325 MG TABLET 650 MG PO (04:09)
[2025-08-08] MEDS: ALBUTEROL 2.5 MG/3 ML NEB (ADULT) INH (04:15)
[2025-08-08] MEDS: SODIUM CHLORIDE 0.9% 1,000 ML 100 ML IV (06:21)
[2025-08-08 07:00] VITALS: BP 111/53; PULSE 64; RESP 16; TEMP 36.6; O2SAT 96
[2025-08-08] MEDS: PREGABALIN 25 MG CAPSULE 50 MG PO (09:12)
[2025-08-08] MEDS: ATORVASTATIN 20 MG TABLET 40 MG PO (09:12)
[2025-08-08 09:16] VITALS: BP 111/53; PULSE 64
[2025-08-08] MEDS: CLOPIDOGREL 75 MG TABLET PO (09:16)
[2025-08-08] MEDS: METOPROLOL ER 25 MG TABLET PO (09:16)
[2025-08-08] MEDS: HEPARIN 5,000 UNIT/ML VIAL 5000 UNIT SUBCUT (09:16)
[2025-08-08] MEDS: SENNOSIDES 8.6 MG TABLET PO (09:16)
[2025-08-08] MEDS: PANTOPRAZOLE DR 40 MG TABLET PO (09:16)
[2025-08-08] MEDS: MONTELUKAST 10 MG TABLET PO (09:16)
--- NOTE | 2025-08-08 09:33 | CM.DPC ---
DCP Cont. Reviewed EMR and team rounds for pt's medical status and updates. Pt has been medically cleared for d/c to [facility] today. They will transport at 11:30am. Will fax d/c clinicals to once available. No further d/c needs identified at this time.
--- NOTE | 2025-08-08 10:08 | P.DS_ITS ---
History of Present Illness History of Present Illness Chief complaint: dysuria, concern for UTI Narrative: From H&P: 74-year-old female with past medical history of hypertension, CVA, with left-sided residual weakness, frequent UTIs, hypertension and asthma presents with dysuria. Per the patient's report, since yesterday, the patient has increasing dysuria, nausea and some suprapubic pain. The patient however denies any fever, chills, vomiting, diarrhea, chest pain, shortness of breath or syncope. Recently the patient was admitted discharge last week few weeks ago for UTI. In the emergency room, the patient was hemodynamically stable. Labs shows a glucose of 213 but otherwise were relatively normal with normal WBC. UA was positive for UTI. CT scan abdomen pelvis shows persistent inflammation of the left continue system with severe left hydronephrosis and renal atrophy there is also sign of cystitis there is focal tapering of his left ureter without visible obstructing stones Dr. Arora form urology consulted and recommend IV antibiotic for now he does not see any emergent urologoical procedure needed at this time. In addition, Dr. Arora will consult on the case in AM. The patient was given Ertapenem due to history of ESLB. Discharge Providers Provider Date of admission: 08/04/25 19:24 Discharge Date: 08/08/25 Primary care physician: Sid Townsend MD Consults: 08/04/25 19:24 Consult to Urology Stat Comment: Consulting Provider: Clement Arora Reason for consultation: Pyelonephritis, hydronephrosis Has provider been notified: Yes 08/04/25 21:04 Consult to Dietitian, Adult Routine Comment: Reason For Exam: non-compliant diabetic 08/06/25 09:33 Consult to Physical Therapy Evaluate & Treat Comment: Physician Instructions: Evaluate and Treat Discharge provider: Ortiz Fraire MD Summary Hospital Course Discharge Diagnosis: 1. UTI with history of ESBL. Improving. 2. Insulin Depedent DM Subcu insulin and monitor glucose. Stable. 3. Hyperlipidemia resume home statin. Stable. 4. Restless syndrome. Resume home medications. Stable. 5. GERD. PPI. Stable. 6. Asthma. Resume home inhalers. Stable. 7. Chronic left hydronephrosis with renal atrophy. No further interventions per urology. Stable. Hospital Course: She was admitted with recurrent ESBL UTI and fatigue. A midline was placed and she was continued on 1 g IV ertapenem daily. Her previous course have been 7 days, and she would recurrence of symptoms within 3-4 days. She was also noted to have hydronephrosis and renal atrophy on imaging. Urology felt that these changes were anatomic, and chronic. No intervention was recommended. The structural abnormalities may have something to do with her recurrent infection. Her current treatment course we will be extended to a total of 14 days. She will be discharge to long-term facility with a left arm midline to complete therapy. Status at Discharge Cognitive/behavioral status at discharge: oriented Functional status at discharge: uses cane/walker Overall status at discharge: patient is back to baseline Time Spent with Patient Time spent: Greater than 30 minutes Exam Vital Signs (past 8 hours): - 08/08/25 07:00 08/08/25 09:16 Temperature 97.8 F Pulse Rate 64 64 Respiratory Rate 16 Blood Pressure 111/53 L 111/53 L Pulse Oximetry 96 Oxygen Delivery Method Room Air Oxygen Flow Rate 0 Narrative Exam Narrative: NAD, alert and oriented. Fluent speech. Lungs are clear, normal rate and effort. Heart is regular, no murmur gallop or rub. Abdomen is soft, non distended. Extremities are free of edema. Left arm midline Objective Imaging CT scan - abdomen: Radiologist's impression: CTAP: Persistent inflammation of the left collecting system with severe left hydronephrosis and renal atrophy. There is also bladder wall inflammation together suggestive of infection. Etiology of obstruction is not obvious. There is focal tapering of the distal left ureter without visible obstructing stone. Retroperitoneal adenopathy which may be reactive Labs 08/07/25 12:15 08/07/25 12:15 Labs: Laboratory Results - last 24 hr 08/07/25 08/07/25 08/07/25 11:20 12:15 16:17 WBC 4.9 RBC 4.07 Hgb 10.1 L Hct 31.5 L MCV 77.4 L MCH 24.9 L MCHC 32.1 RDW 16.3 H Plt Count 250 Sodium 140 Potassium 3.6 Chloride 111 H Carbon Dioxide 22 BUN 13 Creatinine 0.70 Estimated GFR > 60 BUN/Creatinine Ratio 18.6 Glucose 179 H POC Whole Bld Glucose 179 H 128 H Calcium 7.9 L 08/07/25 08/08/25 19:31 07:33 WBC RBC Hgb Hct MCV MCH MCHC RDW Plt Count Sodium Potassium Chloride Carbon Dioxide BUN Creatinine Estimated GFR BUN/Creatinine Ratio Glucose POC Whole Bld Glucose 153 H 89 Calcium PFSH Medical History CAD (coronary artery disease) History of stroke HTN (hypertension) Diabetes Aftercare following left shoulder joint replacement surgery Endometrial cancer Surgical History H/O heart artery stent History of robot-assisted laparoscopic hysterectomy Social History household members: none Smoking Status: Never smoker alcohol intake: current Discharge Assessment & Plan Assessment and Plan Assessment: 1. Recurrent ESBL UTI. Plan of Treatment: Discharge to long-term facility with left arm midline for IV antibiotics, 1 g ertapenem daily through August 19. Discharge Plan Discharge Plan Patient Disposition: SNF Transfer to: [facility] and [facility] Under care of provider: SNF provider. Provider Discharge Comment: Stable for discharge to long-term facility for a 14 day course of IV ertapenem. She had recurrent ESBL UTI. Discharge orders & Medications Prescriptions: New ertapenem 1 gram Recon Soln 1 gm IV Q24H Qty: 10 0RF Continued methenamine hippurate 1 gram tablet PO atorvastatin 40 mg tablet 40 mg PO DAILY albuterol sulfate 90 mcg/actuation HFA aerosol inhaler 2 puff inhalation Q4H PRN (Reason: shortness of breath or wheezing) fluticasone furoate-vilanterol [Breo Ellipta] 100-25 mcg/dose blister with device 2 inh inhalation Q24H clopidogrel 75 mg tablet 75 mg PO DAILY lidocaine 5 % adhesive patch,medicated 1 patch topical Q24H PRN (Reason: pain, moderate) melatonin 10 mg capsule 10 mg PO BEDTIME montelukast 10 mg tablet 10 mg PO DAILY nystatin 100,000 unit/gram powder 1 applic topical Q8H PRN (Reason: rash) omeprazole 40 mg capsule,delayed release(DR/EC) 40 mg PO DAILY ondansetron HCl 4 mg tablet 4 mg PO Q8H PRN (Reason: nausea and vomiting) ropinirole 3 mg tablet 3 mg PO ONCE PM lidocaine 5 % Adhesive Patch,Medicated 1 patch topical BEDTIME Qty: 10 0RF insulin glargine [Lantus Solostar U-100 Insulin] 100 unit/mL (3 mL) Insulin Pen 30 unit SUBCUT BEDTIME Qty: 30 0RF insulin lispro [Admelog U-100 Insulin lispro] 100 unit/mL Solution 8 unit SUBCUT AC Qty: 20 0RF insulin lispro [Admelog U-100 Insulin lispro] 100 unit/mL Solution 0 unit SUBCUT ACHS Qty: 20 0RF ertapenem 1 gram Recon Soln 1 gm IV Q24H Qty: 3 0RF bisacodyl 10 mg Suppository 10 mg [place] DAILY PRN (Reason: Constipation) Qty: 10 0RF polyethylene glycol 3350 [Gavilax] 17 gram Powder In Packet 17 gm PO DAILY PRN (Reason: constipation) Qty: 10 0RF acetaminophen 325 mg Tablet 1,000 mg PO Q6H PRN (Reason: Fever/Mild Pain (1-3)) Qty: 2 2RF tramadol 50 mg tablet 50 mg PO Q6H PRN (Reason: pain) Qty: 20 0RF pregabalin 50 mg capsule 50 mg PO 3XD Qty: 12 0RF ropinirole 0.25 mg tablet 0.25 mg PO DAILY metoprolol succinate 25 mg tablet extended release 24 hr 25 mg PO DAILY Discontinued albuterol sulfate 90 mcg/actuation HFA aerosol inhaler 1 puff inhalation Q4H PRN (Reason: shortness of breath or wheezing) Medication counseling provided by Pharmacist: No Follow up/Referrals: Sid Townsend MD [Primary Care Provider, Internal Medicine] Discharge Health Status Precautions: Contact Diet/Activity/Treatments Diet: Carb-consistent/Diabetic Skin/Wound/Dressing Care Report to your healthcare provider any signs of infection, such as:: chills, fever, night sweats and increased pain Visit Report/Discharge Packet Stand Alone Forms: Patient Portal/API Discharge Data Primary Care Provider: Sid Townsend VTE Deep Vein Thrombosis/Pulmonary Embolism Present on Admission: No
[2025-08-08 11:58] VITALS: BP 132/60; PULSE 68
--- NOTE | 2025-08-08 13:20 | PC.NURSE ---
1312:Discharge instructions explained and understood by patient. Midline not removed for IV abx. Patient transported via wheelchair by [facility] staff. Report given to [facility] nurse. Patients mechanical wheelchair will be taken separately by [facility] staff.
== END 2025-08-08 13:12 | DRG 690 ==
LOC: ED 19:24 → AC 19:25
PROVIDERS: Hospitalist; Admitting Provider Internal Medicine; Emergency Provider Student in an Organized Health Care Education/Training Program; PCP Internal Medicine; Referring Provider Student in an Organized Health Care Education/Training Program; Visit Provider Internal Medicine
DX: N13.6 Pyonephrosis (principal); I69.354 Hemiplegia and hemiparesis following cerebral infarction affecting left non-dominant side; N26.1 Atrophy of kidney (terminal); E11.9 Type 2 diabetes mellitus without complications; E78.5 Hyperlipidemia, unspecified; G25.81 Restless legs syndrome; K21.9 Gastro-esophageal reflux disease without esophagitis; J45.909 Unspecified asthma, uncomplicated; K59.00 Constipation, unspecified; I10 Essential (primary) hypertension; I25.10 Atherosclerotic heart disease of native coronary artery without angina pectoris; B96.20 Unspecified Escherichia coli [E. coli] as the cause of diseases classified elsewhere; Z79.02 Long term (current) use of antithrombotics/antiplatelets; Z79.4 Long term (current) use of insulin
CPT/HCPCS: 36415; 74177; 80048; 80053; 82962; 83605; 83690; 85025; 85027; 87040; 96365; 97161; 97530; 99284; A9270; J1335; J1642; J1644; J1815; J2405; J7030; J7050; J7613; Q9967

== ENCOUNTER 2025-08-10 06:32 | Emergency (ER) | payer MEDICARE, MEDICAID, SELFPAY ==
[2025-08-04 19:46] VITALS: BMI 38.0
[2025-08-10] VITALS (10 sets, daily range): BP systolic 144–192; BP diastolic 64–93; PULSE 60–98; RESP 18–27; TEMP 36.8; O2SAT 92–97; BMI 38.0
--- NOTE | 2025-08-10 06:38 | EKG_ITS ---
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
--- NOTE | 2025-08-10 06:52 | DI.RAD.S_ITS ---
PROCEDURE: XR CHEST 1V INDICATIONS: Chest Pain TECHNIQUE: One view of the chest was acquired. COMPARISON: [facility], CR, XR CHEST FOR PICC 1V, 07/11/2025, 12:01. FINDINGS: Surgical changes and devices: None. Lungs and pleura: Left lung retrocardiac opacity, new from comparison. No pleural effusion. No pneumothorax. Mild interstitial prominence. Mediastinum: Mediastinal contours appear normal. Heart size is normal. Bones and chest wall: No suspicious bony lesions. Overlying soft tissues appear unremarkable. IMPRESSION: New left lower lobe opacity, correlate for infection. Dictated by: Zia Singletary M.D. on 08/10/2025 at 8:24 Approved by: Zia Singletary M.D. on 08/10/2025 at 8:26
[2025-08-10 07:02] LABS: INR 1.1 (0.9-1.3); Prothrombin Time 12.3 SECONDS (9.4-12.5)
[2025-08-10 07:03] LABS: Add Manual Diff / Slide Review NO; Hematocrit 34.7 % (36-46); Hemoglobin 11.2 g/dL (12.0-16.0); Lymphocytes Absolute Auto 1000 /uL (1100-4500); Mean Corpuscular HGB Conc 32.2 % (30-36); Mean Corpuscular Hemoglobin 24.5 PG (26-34); Mean Corpuscular Volume 76.4 fL (80-100); Platelet Count 286 X10^3/uL (150-400)
--- NOTE | 2025-08-10 07:03 | ED.CHESTPAIN ---
HPI - Chest Pain General Chief Complaint: Chest Pain Stated Complaint: Chest Pain Time Seen by Provider: 08/10/25 06:59 Source: patient Mode of arrival: EMS History of Present Illness HPI narrative: Patient is a 74-year-old female history of hypertension CVA with residual weakness frequent UTIs recent admission for UTI with ESBL admitted August 04 through the currently at [facility] on IV antibiotics. Presenting today with chest pain. She reports that she is having some sharp stabbing chest pain it has been going on for a couple of days. Sometimes lasting sec sometimes minutes. She is not short of breath. She has no known history of coronary artery disease. She says last time she felt something like this she was undergoing radiation for uterine cancer. she denies any nausea shortness of breath cough or fever. She has no lower extremity swelling Related Data Home Medications ?Medication ?Instructions ?Recorded ?Confirmed metoprolol succinate 25 mg 25 mg PO DAILY 05/02/25 08/04/25 tablet,extended release 24 hr ropinirole 0.25 mg tablet 0.25 mg PO DAILY 05/02/25 08/04/25 albuterol sulfate 90 mcg/actuation 2 puff inhalation Q4H PRN 07/08/25 08/04/25 aerosol inhaler shortness of breath or wheezing atorvastatin 40 mg tablet 40 mg PO DAILY 07/08/25 08/04/25 clopidogrel 75 mg tablet 75 mg PO DAILY 07/08/25 08/04/25 fluticasone furoate 100 2 inh inhalation Q24H 07/08/25 08/04/25 mcg-vilanterol 25 mcg/dose inhalation powder (Breo Ellipta) lidocaine 5 % topical patch 1 patch topical Q24H PRN pain, 07/08/25 08/04/25 moderate melatonin 10 mg capsule 10 mg PO BEDTIME 07/08/25 08/04/25 montelukast 10 mg tablet 10 mg PO DAILY 07/08/25 08/04/25 nystatin 100,000 unit/gram topical 1 applic topical Q8H PRN rash 07/08/25 08/04/25 powder omeprazole 40 mg capsule,delayed 40 mg PO DAILY 07/08/25 08/04/25 release ondansetron HCl 4 mg tablet 4 mg PO Q8H PRN nausea and vomiting 07/08/25 08/04/25 ropinirole 3 mg tablet 3 mg PO ONCE PM 07/08/25 08/04/25 methenamine hippurate 1 gram tablet g PO 08/04/25 Previous Rx's ?Medication ?Instructions ?Recorded acetaminophen 325 mg tablet 1,000 mg (3.0769 x 325 mg) PO Q6H 07/14/25 PRN Fever/Mild Pain (1-3) #2 tabs bisacodyl 10 mg rectal suppository 10 mg NJ DAILY PRN Constipation 07/14/25 #10 ea ertapenem 1 gram solution for 1 gm IV Q24H #3 ea 07/14/25 injection insulin glargine 100 unit/mL (3 30 unit (0.3 mL) SUBCUT BEDTIME 07/14/25 mL) subcutaneous pen (Lantus #30 mL Solostar U-100 Insulin) insulin lispro 100 unit/mL 0 unit (0 mL) SUBCUT ACHS #20 mL 07/14/25 subcutaneous solution (Admelog U-100 Insulin lispro) insulin lispro 100 unit/mL 8 unit (0.08 mL) SUBCUT AC #20 mL 07/14/25 subcutaneous solution (Admelog U-100 Insulin lispro) lidocaine 5 % topical patch 1 patch topical BEDTIME #10 ea 07/14/25 polyethylene glycol 3350 17 gram 17 gm PO DAILY PRN constipation 07/14/25 oral powder packet (Gavilax) #10 ea ertapenem 1 gram solution for 1 gm IV Q24H #10 ea 08/08/25 injection pregabalin 50 mg capsule 50 mg PO 3XD #12 caps 08/08/25 tramadol 50 mg tablet 50 mg PO Q6H PRN pain #20 tabs 08/08/25 Allergies Allergy/AdvReac Type Severity Reaction Status Date / Time codeine Allergy Itching Verified 08/04/25 14:29 Patient History Medical History CAD (coronary artery disease) History of stroke HTN (hypertension) Diabetes Aftercare following left shoulder joint replacement surgery Endometrial cancer Surgical History H/O heart artery stent History of robot-assisted laparoscopic hysterectomy Social History household members: none alcohol intake: current Exam Initial Vital Signs Initial Vital Signs: Vital Signs Temperature 98.2 F 08/10/25 06:38 Pulse Rate 62 08/10/25 06:38 Respiratory Rate 18 08/10/25 06:38 Blood Pressure 192/93 H 08/10/25 06:38 Pulse Oximetry 97 08/10/25 06:38 Oxygen Delivery Method Room Air 08/10/25 06:38 GENERAL: alert 74-year-old female HEENT: Head atraumatic,EOMI, pupils reactive, face symmetric, [moist] mucous membranes CARDIOVASCULAR: Regular rate and rhythm without murmurs, rubs or gallops. RESPIRATORY: Breath sounds equal bilaterally, no wheezes rales or rhonchi. ABDOMEN: Soft, nontender. Normoactive bowel sounds all 4 quadrants. No guarding or rebound. EXTREMITIES: Normal range of motion, no clubbing or edema. Neurovascularly intact NEUROLOGICAL: Alert and oriented x4.Normal gait and speech. At baseline SKIN: Warm, dry, no laceration, no petechiae, no rashes or lesions. Scores HEART Score Heart Score history: Slightly Suspicious Heart Score EKG: Normal Heart Score Age: > or = 65 years old Heart Score risk factors: > 3 risk factors or hx of atherosclerotic disease Heart Score troponin: < or = to normal limit Heart Score Total: 4 Course Orders Ordered: ED Orders 08/10/25 06:40 D Dimer Stat 08/10/25 06:42 Complete Blood Count AUTO DIFF Stat Comprehensive Metabolic Panel Stat Lipase Stat Magnesium Stat NT-proBNP (BNP-Adult 18+) Stat PTT Partial Thromboplastin Gil Stat Prothrombin Time INR Stat Troponin & CK Cardiac Panel Stat 08/10/25 06:52 XR chest 1V Stat EKG-12 Lead Stat 08/10/25 09:08 Trop I [Troponin I] Stat Vital Signs Vital signs: Vital Signs - 8 hr 08/10/25 07:00 08/10/25 07:30 08/10/25 08:00 Pulse Rate 98 H 62 65 Respiratory Rate 23 Blood Pressure Pulse Oximetry 96 96 96 08/10/25 08:30 08/10/25 09:00 08/10/25 09:30 Pulse Rate 60 67 61 Respiratory Rate 19 24 Blood Pressure Pulse Oximetry 94 93 92 08/10/25 10:00 08/10/25 10:04 08/10/25 10:04 Pulse Rate 63 61 Respiratory Rate 24 Blood Pressure 144/64 H Pulse Oximetry 93 94 MDM - Chest Pain Lab Data 08/10/25 06:42 08/10/25 06:42 Labs: Lab Results 08/10/25 08/10/25 08/10/25 Range/Units 06:40 06:42 09:08 WBC 6.2 (4.5-11.0) X10^3/uL RBC 4.55 (4.0-5.2) X10^6/uL Hgb 11.2 L (12.0-16.0) g/dL Hct 34.7 L (36-46) % MCV 76.4 L (80-100) fL MCH 24.5 L (26-34) PG MCHC 32.2 (30-36) % RDW 16.5 H (11.6-14.8) % Plt Count 286 (150-400) X10^3/uL Neut % (Auto) 74.3 (50-75) % Lymph % (Auto) 16.9 L (25-40) % [place] % (Auto) 4.4 (3-14) % Eos % (Auto) 3.7 (2-4) % Baso % (Auto) 0.7 (0-2) % Neut # (Auto) 4600 (6336-2236) /uL Lymph # (Auto) 1000 L (6661-9998) /uL [place] # (Auto) 300 (0-900) /uL Eos # (Auto) 200 (0-450) /uL Baso # (Auto) 0 (0-100) /uL PT 12.3 (9.4-12.5) SECONDS INR 1.1 (0.9-1.3) APTT 30 (25.1-36.5) SECONDS D-Dimer 487 (<500) ng/ml Sodium 141 (137-145) mmol/L Potassium 3.8 (3.4-5.1) mmol/L Chloride 108 H (98-107) mmol/L Carbon Dioxide 24 (22-32) mmol/L BUN 13 (7-17) mg/dL Creatinine 0.77 (0.52-1.04) mg/dL Estimated GFR > 60 (>60) mL/min BUN/Creatinine Ratio 16.9 (6-22) Glucose 107 H (70-99) mg/dL Calcium 8.7 (8.4-10.2) mg/dL Magnesium 1.8 (1.6-2.3) mg/dL Total Bilirubin 0.3 (0.2-1.3) mg/dL AST 46 H (14-36) IU/L ALT 43 H (<35) IU/L Alkaline Phosphatase 171 H (38-126) U/L Total Creatine Kinase < 20 L (30-135) U/L Troponin I < 0.012 < 0.012 (0.01-0.034) ng/mL NT-Pro-B Natriuret Pep 420 H (<125) pg/mL Total Protein 7.4 (6.3-8.2) g/dL Albumin 3.7 (3.5-5.0) g/dL Globulin 3.7 (1.7-4.1) g/dL Albumin/Globulin Ratio 1.0 (1.0-2.8) Lipase 50 (23-300) U/L Imaging Data Chest x-ray: Radiologist's Impression: PROCEDURE: XR CHEST 1V INDICATIONS: Chest Pain TECHNIQUE: One view of the chest was acquired. COMPARISON: [facility], , XR CHEST FOR PICC 1V, 07/11/2025, 12:01. FINDINGS: Surgical changes and devices: None. Lungs and pleura: Left lung retrocardiac opacity, new from comparison. No pleural effusion. No pneumothorax. Mild interstitial prominence. Mediastinum: Mediastinal contours appear normal. Heart size is normal. Bones and chest wall: No suspicious bony lesions. Overlying soft tissues appear unremarkable. IMPRESSION: New left lower lobe opacity, correlate for infection. Dictated by: Zia Singletary M.D. on 08/10/2025 at 8:24 ECG Data Attestation: I personally reviewed and interpreted this ECG as follows: Interpretation: Normal sinus rhythm rate 65 NJ interval 188 QRS [address] changes MDM Narrative Medical decision making narrative: MDM CC: Chest pain Complicating co-morbidities: ESBL, CVA Data collected from: Patient Medical records reviewed: Recent admission reviewed see above Differential considered: Atypical chest pain coronary artery disease pulmonary embolism pneumonia Exam documented above, pertinent findings include: Alert pleasant well-appearing 74-year-old female no peripheral edema Lab Test results independently reviewed as above. Pertinent findings: CBC no leukocytosis no anemia CMP no electrolyte abnormalities no NITIN Bilirubin within normal limits AST 46 ALT 43 alk-phos 177 all slightly elevated Troponin negative x2 BNP 420 D-dimer less than 500 Independently reviewed EKG as above Sinus rhythm no ischemia Imaging studies independently reviewed: Chest x-ray new left lower lobe pneumonia Consultations:none Treatments: None Re-evaluations: Patient not having any further chest pain while in the emergency department Discussion: Patient is a 74-year-old female presenting today with chest pain. It sounds like she is having sharp shooting pains off and on for the last couple of days. No ischemic changes on EKGs troponin is negative x2. D-dimer is less than 500 she is not hypoxic a low suspicion for pulmonary embolism no need for advanced imaging. Her heart score is 4, based on medical history and age. X-ray suggest a new left lower lobe pneumonia however she does not have cough leukocytosis fever or other symptoms consistent with pneumonia. Discharge Plan Departure Patient Disposition: Home Clinical Impression: Atypical chest pain Instructions: DI for Atypical Chest Pain Activity Restrictions/Additional Instructions: *You have been diagnosed with atypical chest *What to do: At this time please follow-up with your primary care provider in regards to your chest pain you may need further testing such as a stress test *Continue to take medications as directed *Follow up with your primary care provider in 2-3 days or call [phone] *Return to ER if you should have increasing chest pain shortness of breath cough [or] any new, worsening or concerning symptoms Prescriptions: No Action methenamine hippurate 1 gram tablet PO ertapenem 1 gram Recon Soln 1 gm IV Q24H Qty: 10 0RF tramadol 50 mg tablet 50 mg PO Q6H PRN (Reason: pain) Qty: 20 0RF pregabalin 50 mg capsule 50 mg PO 3XD Qty: 12 0RF atorvastatin 40 mg tablet 40 mg PO DAILY albuterol sulfate 90 mcg/actuation HFA aerosol inhaler 2 puff inhalation Q4H PRN (Reason: shortness of breath or wheezing) fluticasone furoate-vilanterol [Breo Ellipta] 100-25 mcg/dose blister with device 2 inh inhalation Q24H clopidogrel 75 mg tablet 75 mg PO DAILY lidocaine 5 % adhesive patch,medicated 1 patch topical Q24H PRN (Reason: pain, moderate) melatonin 10 mg capsule 10 mg PO BEDTIME montelukast 10 mg tablet 10 mg PO DAILY nystatin 100,000 unit/gram powder 1 applic topical Q8H PRN (Reason: rash) omeprazole 40 mg capsule,delayed release(DR/EC) 40 mg PO DAILY ondansetron HCl 4 mg tablet 4 mg PO Q8H PRN (Reason: nausea and vomiting) ropinirole 3 mg tablet 3 mg PO ONCE PM lidocaine 5 % Adhesive Patch,Medicated 1 patch topical BEDTIME Qty: 10 0RF insulin glargine [Lantus Solostar U-100 Insulin] 100 unit/mL (3 mL) Insulin Pen 30 unit SUBCUT BEDTIME Qty: 30 0RF insulin lispro [Admelog U-100 Insulin lispro] 100 unit/mL Solution 8 unit SUBCUT AC Qty: 20 0RF insulin lispro [Admelog U-100 Insulin lispro] 100 unit/mL Solution 0 unit SUBCUT ACHS Qty: 20 0RF ertapenem 1 gram Recon Soln 1 gm IV Q24H Qty: 3 0RF bisacodyl 10 mg Suppository 10 mg NJ DAILY PRN (Reason: Constipation) Qty: 10 0RF polyethylene glycol 3350 [Gavilax] 17 gram Powder In Packet 17 gm PO DAILY PRN (Reason: constipation) Qty: 10 0RF acetaminophen 325 mg Tablet 1,000 mg PO Q6H PRN (Reason: Fever/Mild Pain (1-3)) Qty: 2 2RF ropinirole 0.25 mg tablet 0.25 mg PO DAILY metoprolol succinate 25 mg tablet extended release 24 hr 25 mg PO DAILY Referrals: Sid Townsend MD [Primary Care Provider, Internal Medicine] Stand Alone Forms: Patient Portal/API
[2025-08-10 07:05] LABS: PTT Partial Thromboplastin Tim 30 SECONDS (25.1-36.5)
[2025-08-10 07:10] LABS: Alanine Aminotransferase 43 IU/L (<35); Albumin 3.7 g/dL (3.5-5.0); Albumin Globulin Ratio 1.0 (1.0-2.8); Alkaline Phosphatase 171 U/L (38-126); Blood Urea Nitrogen 13 mg/dL (7-17); Calcium 8.7 mg/dL (8.4-10.2); Carbon Dioxide 24 mmol/L (22-32); Chloride 108 mmol/L (98-107); Creatine Kinase < 20 U/L (30-135); Estimated Glomerular Filt Rate > 60 mL/min (>60); Globulin 3.7 g/dL (1.7-4.1); Glucose 107 mg/dL (70-99); HEMOLYSIS 16 (0-50); Lipase 50 U/L (23-300); Magnesium 1.8 mg/dL (1.6-2.3); Potassium 3.8 mmol/L (3.4-5.1); Sodium 141 mmol/L (137-145); Total Protein 7.4 g/dL (6.3-8.2)
[2025-08-10 07:21] LABS: NT-proBNP (BNP-Adult 18+) 420 pg/mL (<125); Troponin I < 0.012 ng/mL (0.01-0.034)
[2025-08-10 09:38] LABS: Troponin I < 0.012 ng/mL (0.01-0.034)
--- NOTE | 2025-08-10 10:48 | PC.NURSE ---
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 [facility] calls back with transport ETA of 1045. Transport arrives for wheelchair pickup at 1035
== END 2025-08-10 10:49 | disposition home or self-care (01) ==
PROVIDERS: Emergency Provider Emergency Medicine; PCP Internal Medicine
DX: R07.89 Other chest pain (principal); Z86.73 Personal history of transient ischemic attack (TIA), and cerebral infarction without residual deficits
CPT/HCPCS: 36415; 71045; 80053; 82550; 83690; 83735; 83880; 84484; 85025; 85379; 85610; 85730; 93005; 99284